=== PATIENT | female | born 1935 | race Caucasian/White ===

== ENCOUNTER 2017-08-07 12:38 | Inpatient (IN) | payer MEDICARE, OTHER ==
[~2017-08-07] VITALS: Ht 160 cm; Wt 86.2 kg
--- NOTE | 2017-08-07 12:44 | NUR ---
PT IS IN ROOM #2A. DR MATSON EVALUATED THE PT.
[2017-08-07] MEDS ORDERED: METH500T PO (13:11)
[2017-08-07] MEDS ORDERED: TRAM50TA2 PO (13:11)
[2017-08-07] MEDS ORDERED: LANS30CA56 PO (13:11)
[2017-08-07] MEDS ORDERED: DOCU-141 PO (13:11)
[2017-08-07] MEDS ORDERED: DULO20CA PO (13:11)
[2017-08-07] MEDS ORDERED: LIDO30AD10 TD (13:11)
[2017-08-07] MEDS ORDERED: SENN-167 PO (13:11)
[2017-08-07] MEDS ORDERED: ALPR0.5T8 PO (13:11)
[2017-08-07] MEDS ORDERED: APIX2.5T PO (13:11)
[2017-08-07] MEDS ORDERED: GABA-532 PO (13:11)
[2017-08-07] MEDS ORDERED: BISA-79 PO (13:11)
[2017-08-07] MEDS ORDERED: LEVO50TA8 PO (13:11)
[2017-08-07] MEDS ORDERED: POTA10TA15 PO (13:11)
[2017-08-07] MEDS ORDERED: DEXA4TAB2 PO (13:11)
[2017-08-07] MEDS ORDERED: FURO-152 PO (13:11)
[2017-08-07] MEDS ORDERED: DIPH25CA83 PO (13:11)
[2017-08-07] MEDS ORDERED: METO-302 PO (13:11)
[2017-08-07] MEDS ORDERED: IV NORMAL SALINE 1000 ML BAG IV ONE (13:30)
[2017-08-07 14:25] LABS: BASOPHILS # (AUTO) 0.1 K/uL (0.0-8.0); BASOPHILS % (AUTO) 0.5 % (0.0-2.0); EOSINOPHILS % (AUTO) 0.2 % (0.0-7.0); HEMATOCRIT 43.7 % (37-47); HEMOGLOBIN 14.8 G/DL (12.0-16.0); LYMPHOCYTES # (AUTO) 0.6 K/UL (0.8-4.8); LYMPHOCYTES % (AUTO) 3.8 % (20.5-51.5); MEAN CORPUSCULAR HEMOGLOBIN 30.3 UUG (27.0-31.0); MEAN CORPUSCULAR HGB CONC 34 g/dL (32.0-37.0); MEAN CORPUSCULAR VOLUME 89.5 FL (81.0-99.0); MONOCYTES # (AUTO) 1.6 K/UL (0.1-1.30); NEUTROPHILS # (AUTO) 13.9 K/UL (1.8-8.9); NEUTROPHILS % (AUTO) 85.5 % (38.5-71.5); PLATELET COUNT (AUTO) 146 K/UL (150-450); RED BLOOD CELL COUNT(AUTO) 4.88 MIL/UL (4.2-5.4); WHITE BLOOD COUNT (AUTO) 16.2 K/UL (4.0-11.2)
[2017-08-07 14:48] LABS: ALANINE AMINOTRANSFERASE 30 U/L (14-59); ALKALINE PHOSPHATASE 43 U/L (50-136); ASPARTATE AMINOTRANSFERASE 14 U/L (15-37); BILIRUBIN,DIRECT 0.2 mg/dL (0.0-0.2); CARBON DIOXIDE 25 mmol/L (21-32); CREATININE 0.7 mg/dL (0.6-1.3); GLUCOSE 94 mg/dL (74-106); TOTAL PROTEIN, SERUM 5.4 g/dL (6.4-8.2); UREA NITROGEN, BLOOD 20 mg/dL (7-18)
[2017-08-07 14:51] LABS: CHLORIDE 103 mmol/L (98-107)
[2017-08-07 14:58] LABS: POTASSIUM 2.7 mmol/L (3.5-5.1)
[2017-08-07] MEDS ORDERED: POT CHLORIDE/POT BICARB/CIT AC 25 MEQ TABLET.EFF PO ONE (15:15)
[2017-08-07] MEDS ORDERED: POTASSIUM CHLORIDE 50 ML IV SCH (15:15)
[2017-08-07] MEDS ORDERED: ERYTHROMYCIN 0.5% OPHT OINT 3.5 GM TUBE OP ONE (15:30)
[2017-08-07] MEDS ORDERED: ERYTHROMYCIN 0.5% OPHT OINT 3.5 GM TUBE ONE (16:14)
[2017-08-07] MEDS ORDERED: POTASSIUM CHLORIDE 50 ML ONE (16:15)
[2017-08-07] MEDS ORDERED: POTASSIUM BICARBONATE/CIT AC 25 MEQ TABLET.EFF ONE (16:15)
[2017-08-07 16:49] LABS: BAND % (MANUAL) 5 % (0-10); EOSINOPHILS % (MANUAL) 1 % (0-8); LYMPHOCYTES % (MANUAL) 6 % (20-40); METAMYELOCYTES % 1 % (0-1); MONOCYTES % (MANUAL) 7 % (2-10); MYELOCYTES % 3 % (0-0); NEUTROPHILS % (MANUAL) 77 % (42-75)
--- NOTE | 2017-08-07 17:54 | NUR ---
REPORT WAS GIVEN TO PRODUCT DELIVERY SPECIALIST. PT WAS TRANSFERED TO TELEMETRY ROOM #210.
--- NOTE | 2017-08-07 18:30 | NUR ---
PT ARRIVED BY [facility] TO 210, NO DISTRESS, NO C/O PAIN, VVS, WILL GIVE REPORT TO CUT OFF MACHINE UNLOADER NURSE.
--- NOTE | 2017-08-07 18:51 | NUR ---
VSS 98.5 89, 19, 134/76 98%. RECEIVED REPORT TO RN FROM ER 60 MINUTES AGO.
[2017-08-07 18:54] VITALS: BP 130/76
[2017-08-07 20:00] VITALS: BP 133/77
[2017-08-07] MEDS ORDERED: LIDOCAINE 5% PATCH TD SCH (21:00)
[2017-08-07] MEDS ORDERED: ONDANSETRON 4 MG/2 ML VIAL IV PRN (21:00)
[2017-08-07] MEDS ORDERED: SENNOSIDES 1 TABLET PO PRN (21:00)
[2017-08-07] MEDS ORDERED: ACETAMINOPHEN 325 MG TABLET PO PRN (21:00)
[2017-08-07] MEDS ORDERED: ALPRAZOLAM 0.5 MG TABLET PO PRN (21:00)
[2017-08-07] MEDS ORDERED: METHOCARBAMOL 500 MG TABLET PO PRN (21:00)
[2017-08-07] MEDS: METOPROLOL SUCCINATE XL 25 MG TAB.SR.24H PO SCH (21:00)
[2017-08-07] MEDS ORDERED: Medication Not On Formulary EA (Apixaban (Eliquis) 2.5 MG) PO SCH (21:00)
[2017-08-07] MEDS ORDERED: DEXAMETHASONE 4 MG TABLET PO SCH (21:00)
[2017-08-07] MEDS ORDERED: BISACODYL 5 MG TABLET.DR PO PRN (21:00)
[2017-08-07] MEDS ORDERED: Medication Not On Formulary EA (Potassium Chloride 1 TAB) PO PRN (21:00)
[2017-08-07] MEDS ORDERED: TRAMADOL HCL 50 MG TABLET PO PRN (21:00)
[2017-08-07] MEDS ORDERED: POTASSIUM CHLORIDE 20 MEQ in IV NS 1000 ML 1,000 ML IV SCH (21:45)
--- NOTE | 2017-08-07 22:00 | NUR ---
came and saw family, daughter is concern that pt fall possibly due to bp drop. bp is normal with 133/[address] Butler to hold toprol tonSonoPlot.
[2017-08-07] MEDS: GABAPENTIN 100 MG CAPSULE PO SCH (22:08)
[2017-08-07] MEDS ORDERED: TRAMADOL HCL 50 MG TABLET ONE (22:18)
[2017-08-07] MEDS ORDERED: GABAPENTIN 100 MG CAPSULE ONE (22:20)
[2017-08-07] MEDS ORDERED: ALPRAZOLAM 0.5 MG TABLET ONE (22:21)
[2017-08-07] MEDS ORDERED: AZITHROMYCIN 500 MG VIAL IV ONE (23:34)
[2017-08-07] MEDS ORDERED: CEFTRIAXONE 1 G VIAL ONE (23:34)
[2017-08-08 00:01] VITALS: BP 136/81
[2017-08-08] MEDS: CEFTRIAXONE 1 G in IV DEXTROSE 5% 50 ML IV SCH ×2 (00:10→21:01)
[2017-08-08] MEDS: AZITHROMYCIN IV 500 MG in IV DEXTROSE 5% 250 ML IV SCH ×2 (00:10→23:04)
[2017-08-08] MEDS: MORPHINE SULFATE 2 MG/1 ML DISP.SYRIN IV PRN ×4 (01:14→21:02)
[2017-08-08] MEDS ORDERED: MORPHINE SULFATE 2 MG/1 ML DISP.SYRIN ONE ×2 (01:26→06:52)
[2017-08-08 04:00] VITALS: BP 153/81
--- NOTE | 2017-08-08 06:30 | NUR ---
PT IS NEW ADMIT,pt alert,oriented, c/o back pain and both leg pain. left leg weakness. pt had syncopal episode at home and a fall.kept on oxygen 1-2 liters overnight, medicated with ultram but no enough relief woke up in pain and given morphine with better relief and fall asleep.started on iv fluids and antibiotics given without reaction.had x1 liquid stool but stop this morning voided in bedpan and urine sent to lab.med Eliquis given, family brought meds from home, Dr.Oleg pineda to give meds tonight confirmed by Delisa ,charge nurse.will continue to monitor to monitor, A-fib on monitor.
[2017-08-08] MEDS: GABAPENTIN 100 MG CAPSULE PO SCH ×3 (06:41→21:06)
[2017-08-08] MEDS ORDERED: GABAPENTIN 100 MG CAPSULE ONE (06:55)
[2017-08-08 06:57] LABS: BASOPHILS % (AUTO) 0.2 % (0.0-2.0); EOSINOPHILS # (AUTO) 0.1 K/uL (0.0-0.7); EOSINOPHILS % (AUTO) 1.1 % (0.0-7.0); HEMATOCRIT 39.6 % (31.2-41.9); HEMOGLOBIN 13.8 g/dL (10.9-14.3); LYMPHOCYTES # (AUTO) 0.4 K/uL (20.0-40.0); LYMPHOCYTES % (AUTO) 4.6 % (20.5-51.5); MEAN CORPUSCULAR HEMOGLOBIN 31.3 uug (24.7-32.8); MEAN CORPUSCULAR HGB CONC 35 g/dL (32.3-35.6); MEAN CORPUSCULAR VOLUME 89.8 fL (75.5-95.3); MONOCYTES # (AUTO) 0.8 K/uL (2.0-10.0); MONOCYTES % (AUTO) 8.4 % (0.0-11.0); NEUTROPHILS # (AUTO) 8.5 K/uL (1.8-8.9); NEUTROPHILS % (AUTO) 85.7 % (38.5-71.5); PLATELET COUNT (AUTO) 114 K/uL (179-408); RED BLOOD CELL COUNT(AUTO) 4.41 MIL/uL (3.63-4.92)
[2017-08-08 07:07] LABS: IRON, SERUM 46 ug/dL (50-175)
[2017-08-08 07:15] LABS: CARBON DIOXIDE 27 mmol/L (21-32); CHLORIDE 105 mmol/L (98-107); CREATININE 0.5 mg/dL (0.6-1.3); GLUCOSE 124 mg/dL (74-106); POTASSIUM 3.7 mmol/L (3.5-5.1); UREA NITROGEN, BLOOD 13 mg/dL (7-18)
[2017-08-08 07:16] LABS: ALANINE AMINOTRANSFERASE 16 U/L (14-59); ALKALINE PHOSPHATASE 43 U/L (50-136); ASPARTATE AMINOTRANSFERASE 14 U/L (15-37); BILIRUBIN,TOTAL 0.7 mg/dL (0.2-1.0); MAGNESIUM 1.9 mg/dL (1.8-2.4); TOTAL PROTEIN, SERUM 5.2 g/dL (6.4-8.2)
[2017-08-08 07:20] LABS: WHITE BLOOD COUNT (AUTO) 9.8 K/uL (3.8-11.8)
[2017-08-08 07:27] LABS: THYROID STIMULATING HORMONE 0.618 mIU/mL (0.358-3.740)
--- NOTE | 2017-08-08 07:30 | NUR ---
PT RECEIVED IN BED SLEEPING.V/S ARE STABLE.PT IS AXOX3.FAMILY AT BED SIDE.
[2017-08-08] MEDS ORDERED: POTASSIUM CHLORIDE 10 MEQ CAPSULE.SA PO PRN (08:00)
[2017-08-08] MEDS: DULOXETINE 20 MG CAPSULE.DR PO SCH (08:02)
[2017-08-08] MEDS: LEVOTHYROXINE SODIUM 50 MCG TABLET PO SCH (08:02)
[2017-08-08] MEDS: PANTOPRAZOLE SODIUM 40 MG TABLET.DR PO SCH (08:02)
[2017-08-08 08:34] LABS: *BLOOD, URINE 1+ (NEGATIVE); *CLARITY,URINE CLOUDY (CLEAR); *COLOR,URINE YELLOW (YELLOW); *KETONES,URINE TRACE (NEGATIVE); *PROTEIN,URINE TRACE (NEGATIVE); LEUKOCYTE ESTERASE ,URINE 1+ (NEGATIVE); NITRITE, URINE NEGATIVE (NEGATIVE); PH,URINE 5.5 (5.0-8.0); UGLUCOSE NEGATIVE (NEGATIVE)
[2017-08-08] MEDS: APIXABAN 5 MG TABLET PO SCH ×2 (08:58→17:07)
[2017-08-08 10:54] LABS: *BILIRUBIN,URIN 1+ (NEGATIVE)
[2017-08-08 10:58] LABS: BACTERIA,URINE MANY /HPF (NONE SEEN); SQUAMOUS EPITHELIAL CELL,UR MANY /HPF (NONE SEEN)
[2017-08-08] MEDS: POTASSIUM PHOSPHATE MM 5 MMOL in IV DEXTROSE 5% 100 ML IV SCH ×2 (11:38→13:30)
[2017-08-08] MEDS: GENTAMICIN SULFATE OPHT DROP 5 ML BOTTLE EACHEYE SCH ×3 (11:42→23:06)
[2017-08-08 11:52] VITALS: BP 130/81
--- NOTE | 2017-08-08 12:31 | NUR ---
PT HR IS 121 MD MADE AWARE.
--- NOTE | 2017-08-08 14:41 | NUR ---
PT SEEN BY DR FONTAINE ,FAMILY IS AT BED SIDE.MORPHINE 1 MG I/V GIVEN PER MD ORDERS FOR PAIN.
[2017-08-08] MEDS: METOPROLOL SUCCINATE XL 25 MG TAB.SR.24H PO SCH (15:22)
[2017-08-08 16:01] VITALS: BP 142/72
[2017-08-08 20:00] VITALS: BP 110/77
[2017-08-08] MEDS: POTASSIUM CHLORIDE 20 MEQ in IV NS 1000 ML 1,000 ML IV PRN (21:01)
[2017-08-09] VITALS: BP 144/78
[2017-08-09 04:00] VITALS: BP 142/82
--- NOTE | 2017-08-09 05:17 | NUR ---
PT SLEPT WELL THROUGH THE NIGHT AND WAS EASILY AWOKEN, PT COMPLAINED OF HIP PAIN ONCE DURING THE NIGHT AND WAS GIVEN MORPHINE WHICH WAS EFFECTIVE. PT DENIED HAVING ANY DIFFICULTY BREATHING. PT DENIED HAVING ANY DIZZINESS.PT DID COMPLAIN OF SLIGHT NAUSEA, ZOFRAN WAS GIVEN AND WAS EFFECTIVE. ALL NEEDS MET SAFETY MEASURES ARE IN PLACE, CALL LIGHT WITHIN REACH, BED ALARM IS ON. Addendum: 08/09/17 at 0656 by DANIELA HILL RN PT'S HEART RHYTHM HAS BEEN A FIB/AFLUTTER DURING THE NIGHT, MOSTLY CONTROLLED, PT'S HEART RATE IS BETWEEN 90-110 BUT DID INCREASE HIGH 129 BUT NON SUSTAINING. PT'S HIP XR WAS ALSO RESULTED NOTIFIED DIONISIO CONTI, NO NEW ORDERS RECEIVED AT THIS TIME, ONLY TO FOLLOW UP WITH DAY SHIFT MD.
[2017-08-09] MEDS: PANTOPRAZOLE SODIUM 40 MG TABLET.DR PO SCH (06:24)
[2017-08-09] MEDS: LEVOTHYROXINE SODIUM 50 MCG TABLET PO SCH (06:24)
[2017-08-09] MEDS: GABAPENTIN 100 MG CAPSULE PO SCH ×3 (06:25→21:10)
[2017-08-09] MEDS: GENTAMICIN SULFATE OPHT DROP 5 ML BOTTLE EACHEYE SCH ×3 (06:25→18:14)
[2017-08-09 06:42] LABS: EOSINOPHILS # (AUTO) 0.1 K/uL (0.0-0.7); EOSINOPHILS % (AUTO) 1.1 % (0.0-7.0); HEMATOCRIT 38.6 % (37-47); HEMOGLOBIN 13.4 G/DL (12.0-16.0); LYMPHOCYTES # (AUTO) 0.3 K/UL (0.8-4.8); LYMPHOCYTES % (AUTO) 3.4 % (20.5-51.5); MEAN CORPUSCULAR HEMOGLOBIN 31.3 UUG (27.0-31.0); MEAN CORPUSCULAR HGB CONC 35 g/dL (32.0-37.0); MEAN CORPUSCULAR VOLUME 90.5 FL (81.0-99.0); MONOCYTES # (AUTO) 0.6 K/UL (0.1-1.30); MONOCYTES % (AUTO) 6.6 % (0.0-11.0); NEUTROPHILS # (AUTO) 8.5 K/UL (1.8-8.9); NEUTROPHILS % (AUTO) 88.9 % (38.5-71.5); PLATELET COUNT (AUTO) 118 K/UL (150-450); RED BLOOD CELL COUNT(AUTO) 4.27 MIL/UL (4.2-5.4); WHITE BLOOD COUNT (AUTO) 9.5 K/UL (4.0-11.2)
[2017-08-09 07:02] LABS: ALANINE AMINOTRANSFERASE 22 U/L (14-59); ALKALINE PHOSPHATASE 39 U/L (50-136); ASPARTATE AMINOTRANSFERASE 15 U/L (15-37); BILIRUBIN,TOTAL 0.4 mg/dL (0.2-1.0); CARBON DIOXIDE 26 mmol/L (21-32); CHLORIDE 106 mmol/L (98-107); CREATININE 0.5 mg/dL (0.6-1.3); GLUCOSE 115 mg/dL (74-106); MAGNESIUM 1.7 mg/dL (1.8-2.4); PHOSPHOROUS 1.8 mg/dL (2.5-4.9); POTASSIUM 4.3 mmol/L (3.5-5.1); TOTAL PROTEIN, SERUM 5.2 g/dL (6.4-8.2); UREA NITROGEN, BLOOD 9 mg/dL (7-18)
[2017-08-09] MEDS: MORPHINE SULFATE 2 MG/1 ML DISP.SYRIN IV PRN ×5 (07:35→21:11)
--- NOTE | 2017-08-09 07:35 | NUR ---
on bed, resting verbalized pain on left hip, medicated. aware of result of xray , will meds as needed. bedrest maintained.
--- NOTE | 2017-08-09 08:55 | NUR ---
dr martinez here, aware of left hip fracture result, will keep patient on bedrest, patient resting well after pain med with relief.
[2017-08-09] MEDS ORDERED: SODIUM PHOSPHATE MM 15 MM in IV DEXTROSE 5% 250 ML IV ONE (09:30)
[2017-08-09] MEDS ORDERED: MAGNESIUM SULFATE/D5W 100 ML IV SCH (09:30)
[2017-08-09] MEDS: APIXABAN 5 MG TABLET PO SCH (09:42)
[2017-08-09] MEDS: DULOXETINE 20 MG CAPSULE.DR PO SCH (09:42)
[2017-08-09 10:00] LABS: EOSINOPHILS % (MANUAL) 1 % (0-8); LYMPHOCYTES % (MANUAL) 7 % (20-40); MONOCYTES % (MANUAL) 12 % (2-10); NEUTROPHILS % (MANUAL) 80 % (42-75)
--- NOTE | 2017-08-09 10:00 | NUR ---
bucks traction applied as ordered, tolerated well by patient. verbalized relief of pressure from the hip.
[2017-08-09 11:25] VITALS: BP 113/80
[2017-08-09] MEDS: METOPROLOL TARTRATE 25 MG TABLET PO SCH ×2 (11:57→21:10)
--- NOTE | 2017-08-09 12:16 | NUR ---
dr martinez in to speak with patients family, updated with patient status.
--- NOTE | 2017-08-09 12:34 | NUR ---
tele dc as ordered.
[2017-08-09 16:08] VITALS: BP 114/72
--- NOTE | 2017-08-09 17:06 | NUR ---
family in at bedside, anxious with consult with dr serrano. aware of results and xray films as requested. patient on bed, resting comfortable.
--- NOTE | 2017-08-09 19:30 | NUR ---
RECEIVED PATIENT LAYING IN BED. BUCKS TRACTION ON LEFT LEG WITH 5 LBS. NO ACUTE DISTRESS NOTED. FAMILY AT BEDSIDE. SAFETY INITIATED. CALL LIGHT WITHIN REACH. WILL CONTINUE TO MONITOR.
[2017-08-09 20:00] VITALS: BP 124/79
[2017-08-09] MEDS: CEFTRIAXONE 1 G in IV DEXTROSE 5% 50 ML IV SCH (21:09)
[2017-08-09 21:10] VITALS: BP 124/79
[2017-08-09] MEDS ORDERED: ACET325T53 PO (21:53)
[2017-08-09] MEDS: AZITHROMYCIN IV 500 MG in IV DEXTROSE 5% 250 ML IV SCH (21:58)
[2017-08-09] MEDS: POTASSIUM CHLORIDE 20 MEQ in IV NS 1000 ML 1,000 ML IV PRN (23:45)
[2017-08-10] MEDS: MORPHINE SULFATE 2 MG/1 ML DISP.SYRIN IV PRN (00:09)
--- NOTE | 2017-08-10 00:35 | NUR ---
TRANSPORT TEAM HERE TO [facility] THE PATIENT. GAVE REPORT TO GERALD TATUM AT [facility]. HERNANDEZ. VITAL SIGNS STABLE.
[2017-08-10] MEDS: GENTAMICIN SULFATE OPHT DROP 5 ML BOTTLE EACHEYE SCH (00:53)
== END 2017-08-10 01:45 | disposition short-term general hospital (02) | DRG 73 ==
LOC: ER 12:38 → TELE 18:05 → MED 08-09 10:30
PROVIDERS: ADMIT Internal Medicine; ATTEND Internal Medicine
DX: G90.8 Other disorders of autonomic nervous system (principal); J18.9 Pneumonia, unspecified organism; E44.0 Moderate protein-calorie malnutrition; J90 Pleural effusion, not elsewhere classified; S72.012A Unspecified intracapsular fracture of left femur, initial encounter for closed fracture; C90.00 Multiple myeloma not having achieved remission; I31.3 Pericardial effusion (noninflammatory); I48.92 Unspecified atrial flutter; M84.48XA Pathological fracture, other site, initial encounter for fracture; N39.0 Urinary tract infection, site not specified; I48.2 Chronic atrial fibrillation; I11.9 Hypertensive heart disease without heart failure; R55 Syncope and collapse; E03.9 Hypothyroidism, unspecified; E66.9 Obesity, unspecified; E87.6 Hypokalemia; F41.9 Anxiety disorder, unspecified; G89.4 Chronic pain syndrome; Z79.01 Long term (current) use of anticoagulants; Z79.891 Long term (current) use of opiate analgesic; Z86.711 Personal history of pulmonary embolism; Z79.899 Other long term (current) drug therapy; M48.00 Spinal stenosis, site unspecified; M54.30 Sciatica, unspecified side; Z68.33 Body mass index [BMI] 33.0-33.9, adult; Z92.21 Personal history of antineoplastic chemotherapy; Y93.9 Activity, unspecified; Y92.009 Unspecified place in unspecified non-institutional (private) residence as the place of occurrence of the external cause; W19.XXXA Unspecified fall, initial encounter
CPT/HCPCS: 36415; 70030-TC; 70450; 71010; 72125; 73501; 83550; 83605; 83735; 84100; 84443; 85025; 85730; 87040; 87086; 93005; 93307; 93880; A4663; J0456; J0696; J2270; J2405; J3475; J3480; J3490; J7030; J7060

== ENCOUNTER 2017-08-17 13:07 | Inpatient (IN) | payer MEDICARE, OTHER ==
[~2017-08-17] VITALS: Ht 160 cm; Wt 90.7 kg
[~2017-08-17 13:07] MED LIST: ACET325T53 PO; ALPR0.5T8 PO; DOCU-141 PO; DULO20CA PO; GABA-532 PO; LANS30CA56 PO; LEVO50TA8 PO; METO-302 PO; SENN-167 PO; TRAM50TA2 PO
[2017-08-17] MEDS ORDERED: APIX2.5T PO (15:17)
[2017-08-17] MEDS ORDERED: LACT1TAB12 PO (15:17)
[2017-08-17] MEDS ORDERED: METO75TA PO (15:17)
[2017-08-17] MEDS ORDERED: LEVO50TA8 PO (15:17)
[2017-08-17] MEDS ORDERED: ATOR20TA PO (15:17)
[2017-08-17] MEDS ORDERED: DULO20CA PO (15:17)
[2017-08-17] MEDS ORDERED: GABA-532 PO (15:17)
--- NOTE | 2017-08-17 16:13 | NUR ---
pt arrived in ER with ambulance in a gurney at 1330. pt vitals taken bp 127 hr 95 on 94% rroom air. respirations 18. no signs of sob. temp 98.3. pt assessed. initial assessment and physical assessment done on bedside. pictures taken on wound site. family member refused to have wounds opened and refused when encouraged. picture of hematoma taken. will endorse to next shift to change dressing and take picture. NIH scale done. pt is negative for any stroke residual. pt has some signs of short term memory and forgetfulness. bed alarm on as family recommends for confusion. pt is alert and oriented. all information on report on chart. belongings list placed and signed on chart. med recon done. awaiting dr vicente orders. will continue to monitor.
[2017-08-17] MEDS ORDERED: ACETAMINOPHEN 325 MG TABLET PO PRN (16:45)
[2017-08-17] MEDS ORDERED: Medication Not On Formulary EA (Apixaban (Eliquis) 2.5 MG) PO SCH (17:00)
[2017-08-17] MEDS: GABAPENTIN 100 MG CAPSULE PO SCH (17:31)
[2017-08-17] MEDS: DOCUSATE SODIUM 100 MG CAPSULE PO SCH (17:31)
--- NOTE | 2017-08-17 17:57 | NUR ---
pt continues to sleep throughout the day. pt shows no signs of confusion nor signs of distress. med recon done except erythromycin cream for left stye q4 hrs. contacted md and awaiting orders. bed alarm on. instruted pt to call for help when need assistance although pt may forget. bed alarm next to patient and intructed to use. will endorse new developments to double end tenoner setter nurse.
[2017-08-17] MEDS ORDERED: ERYTHROMYCIN 0.5% OPHT OINT 3.5 GM TUBE EACHEYE SCH (19:00)
--- NOTE | 2017-08-17 20:00 | NUR ---
Received pt on bed asleep. Family member at bedside. In no apparent distress. Breathing even and unlabored with normal respirations. Complained of left hip pain, PRN tramadol given as ordered. BP meds held, BP 103/65. Call light within reach. Safety and fall precautions observed and maintained. All needs met. Will continue to monitor.
[2017-08-17] MEDS: ATORVASTATIN 20 MG TABLET PO SCH (20:15)
[2017-08-17] MEDS: ERYTHROMYCIN LEFTEYE SCH (20:15)
[2017-08-17] MEDS: APIXABAN 2.5 MG PO SCH (20:15)
[2017-08-17] MEDS: TRAMADOL HCL 50 MG TABLET PO PRN (20:17)
[2017-08-17] MEDS: METOPROLOL SUCCINATE XL 25 MG TAB.SR.24H PO SCH (20:18)
[2017-08-17 21:10] VITALS: BP 103/65
[2017-08-18] MEDS ORDERED: Z GUARD REMEDY PASTE 57 GM TUBE TOP PRN (01:45)
[2017-08-18] MEDS: TRAMADOL HCL 50 MG TABLET PO PRN ×2 (05:32→12:47)
--- NOTE | 2017-08-18 05:50 | NUR ---
Patient slept well throughout the shift. No acute distress noted. Cleanse surgical site with NS, pat dry, surgical dressing applied as ordered. Pictures taken and placed in chart. No signs/symptoms of infection was noted. Still complaining of left hip pain, medicated with PRN tramadol as ordered. Incontinent care done. DVT pumps on. Call light within reach. fall precautions observed and maintained. All needs attended.
[2017-08-18] MEDS: ERYTHROMYCIN LEFTEYE SCH ×4 (06:39→19:33)
[2017-08-18] MEDS: LEVOTHYROXINE SODIUM 50 MCG TABLET PO SCH (06:39)
[2017-08-18 07:10] VITALS: BP 149/97
[2017-08-18 07:26] LABS: BASOPHILS % (AUTO) 0.2 % (0.0-2.0); EOSINOPHILS # (AUTO) 0.1 K/uL (0.0-0.7); EOSINOPHILS % (AUTO) 0.7 % (0.0-7.0); HEMATOCRIT 37.9 % (37-47); HEMOGLOBIN 13.1 G/DL (12.0-16.0); LYMPHOCYTES # (AUTO) 1.5 K/UL (0.8-4.8); LYMPHOCYTES % (AUTO) 18.4 % (20.5-51.5); MEAN CORPUSCULAR HEMOGLOBIN 31.4 UUG (27.0-31.0); MEAN CORPUSCULAR HGB CONC 35 g/dL (32.0-37.0); MEAN CORPUSCULAR VOLUME 90.7 FL (81.0-99.0); MONOCYTES # (AUTO) 0.5 K/UL (0.1-1.30); MONOCYTES % (AUTO) 6.1 % (0.0-11.0); NEUTROPHILS % (AUTO) 74.6 % (38.5-71.5); PLATELET COUNT (AUTO) 193 K/UL (150-450); RED BLOOD CELL COUNT(AUTO) 4.18 MIL/UL (4.2-5.4); WHITE BLOOD COUNT (AUTO) 8.1 K/UL (4.0-11.2)
--- NOTE | 2017-08-18 07:30 | NUR ---
Received patient asleep. Non-labored breathing. Bot in apparent distress. Call light within reach.
[2017-08-18 07:39] LABS: ALANINE AMINOTRANSFERASE 23 U/L (14-59); ALKALINE PHOSPHATASE 55 U/L (50-136); ASPARTATE AMINOTRANSFERASE 17 U/L (15-37); BILIRUBIN,TOTAL 0.8 mg/dL (0.2-1.0); CARBON DIOXIDE 26 mmol/L (21-32); CHLORIDE 105 mmol/L (98-107); CREATININE 0.5 mg/dL (0.6-1.3); GLUCOSE 108 mg/dL (74-106); MAGNESIUM 1.5 mg/dL (1.8-2.4); PHOSPHOROUS 2.9 mg/dL (2.5-4.9); TOTAL PROTEIN, SERUM 5.4 g/dL (6.4-8.2); UREA NITROGEN, BLOOD 6 mg/dL (7-18)
[2017-08-18] MEDS: APIXABAN 2.5 MG PO SCH ×2 (08:56→20:53)
[2017-08-18] MEDS: DULOXETINE 20 MG CAPSULE.DR PO SCH (08:57)
[2017-08-18] MEDS: GABAPENTIN 100 MG CAPSULE PO SCH ×3 (08:57→17:00)
[2017-08-18] MEDS: ACIDOPHILUS/BULGARICUS CHEW TAB PO SCH (08:57)
[2017-08-18] MEDS: OXYCODONE/APAP 5-325 MG TABLET PO PRN ×2 (08:58→20:55)
[2017-08-18] MEDS ORDERED: LEVOTHYROXINE SODIUM 50 MCG TABLET PO SCH (09:00)
[2017-08-18] MEDS: DOCUSATE SODIUM 100 MG CAPSULE PO SCH ×2 (09:00→17:00)
[2017-08-18] MEDS ORDERED: Medication Not On Formulary EA (Lactobacillus Acidophilus (Acidophilus) 1 EACH) PO SCH (09:00)
--- NOTE | 2017-08-18 09:30 | NUR ---
Complained of pain over left leg rated as 9/10. Refused to participate with therapy at the moment because of pain. PRN Percocet given.
--- NOTE | 2017-08-18 09:50 | NUR ---
Changed per soiling, tone-care done. Offered crackers and yoghurt.
--- NOTE | 2017-08-18 11:28 | NUR ---
Up with physical therapy. Able to ambulate. Tolerating therapy well.
--- NOTE | 2017-08-18 12:49 | NUR ---
Still with left leg pain rated as 9/10 after therapy. Tramadol PRN given
[2017-08-18] MEDS ORDERED: MAGNESIUM OXIDE 400 MG TABLET PO ONE (15:00)
[2017-08-18] MEDS: DEXAMETHASONE 4 MG PO SCH (17:00)
--- NOTE | 2017-08-18 18:00 | NUR ---
Dressing changed. With scant serous drainage. With swelling. Informed Dr. Butler and Dr. Allen. No new orders. Ice pack applied over area
[2017-08-18 20:30] VITALS: BP 103/70
[2017-08-18] MEDS: ATORVASTATIN 20 MG TABLET PO SCH (20:53)
[2017-08-18] MEDS: METOPROLOL SUCCINATE XL 25 MG TAB.SR.24H PO SCH (20:56)
[2017-08-18] MEDS: ALPRAZOLAM 0.5 MG TABLET PO PRN (20:57)
--- NOTE | 2017-08-18 22:09 | NUR ---
Received patient laying on bed, , unlabored breathing and no signs of distress. pt wound site still has hematoma but improving. dressing changed by am shift nurse. removed ice packs and repositioned patient. dvt pumps on. swelling reduced. pt took meds as prescribed. witheld metoprolol for decreased blood pressure. pt also has fluctuating hr due to a fib. md aware. pain meds given with adult rate of 9/10 on left leg. pt states that she was hot. pt afebrile. turned off the specialty matress. pt also given xanax as requested by the family. will continue to monitor.
--- NOTE | 2017-08-19 02:30 | NUR ---
Seen and examined by Dr. Morin (Float Tender) with new orders to change current Eliquis order to Eliquis 5mg tablet orally every 12 hours and Metoprolol order to Metoprolol 25 mg 1 tablet orally every 12 hours. at bedside and patient informed of the medication orders and agreed. Noted an carried out. Addendum: 08/19/17 at 1501 by MADAY AUGUSTIN RN 1430: Seen and examined by Dr. Morin (Float Tender) with new orders to change current Eliquis order to Eliquis 5mg tablet orally every 12 hours and Metoprolol order to Metoprolol 25 mg 1 tablet orally every 12 hours. at bedside and patient informed of the medication orders and agreed. Noted an carried out.
--- NOTE | 2017-08-19 06:11 | NUR ---
Patient was able to sleep the entire night. Denies of pain. Vitals are stable. Surgical site checked and assessed, drainage noted but no signs of infections. All due meds given. All needs attended to. Call light within reach. fall precautions observed and maintained.
[2017-08-19] MEDS: LEVOTHYROXINE SODIUM 50 MCG TABLET PO SCH (06:24)
[2017-08-19] MEDS: PANTOPRAZOLE SODIUM 40 MG TABLET.DR PO SCH (06:25)
--- NOTE | 2017-08-19 07:10 | NUR ---
Received patient asleep lying on bed on a semi-henderson's position with no SOB, distress or discomforts at this time, easily aroused, alert and oriented, responsive to both verbal and tactile stimuli. All needs attended and anticipated. Call light placed within reach. Will continue to monitor.
[2017-08-19] MEDS: ERYTHROMYCIN LEFTEYE SCH ×4 (08:18→19:07)
[2017-08-19 08:40] VITALS: BP 125/67
[2017-08-19] MEDS: APIXABAN 2.5 MG PO SCH (08:44)
[2017-08-19] MEDS: GABAPENTIN 100 MG CAPSULE PO SCH ×3 (08:44→17:21)
[2017-08-19] MEDS: ACIDOPHILUS/BULGARICUS CHEW TAB PO SCH (08:44)
[2017-08-19] MEDS: DULOXETINE 20 MG CAPSULE.DR PO SCH (08:44)
[2017-08-19] MEDS: DOCUSATE SODIUM 100 MG CAPSULE PO SCH ×2 (08:46→17:00)
--- NOTE | 2017-08-19 10:45 | NUR ---
Received a call from Dr. 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 patient is currently on Eliquis 2.5mg PO BID. Immediately called Dr. Luis Hammond (on-call) and reported the result that was reported by Dr. Kumar. Per Dr. Luis Hammond to continue with current medication. Called Brenda (daughter) and informed. Also, informed patient's daughter regarding the upcoming IDT meeting for tomorrow. Per Brenda she will go. Called Nursing telephone operators supervisor and informed about the left femoral vein clot. Will continue to monitor patient closely.
--- NOTE | 2017-08-19 11:00 | NUR ---
Called Dr. Luis Hammond and verified if patient can resume her normal daily activities. Per MD Hammond it is okay to resume normal daily activities.
--- NOTE | 2017-08-19 11:35 | NUR ---
Wound care dressing done, no drainage noted. Patient tolerated well the dressing change.
--- NOTE | 2017-08-19 12:30 | NUR ---
Patient's daughter, Brenda said she wants a Cardiology Consult for the patient. called dr. Luis Hammond and informed of the request. Received new order from MD Hammond of Cardiology Consult with Dr. Arnoldo Valle, (Superintendent Local). Noted and carried out.
--- NOTE | 2017-08-19 12:34 | NUR ---
Called and spoke with Dr. Arnoldo Valle (Regional Service Manager) and notified of the Cardiology Consult order.
--- NOTE | 2017-08-19 13:17 | NUR ---
Upon doing rounds, noted patient asleep, lying on bed on a semi- henderson's position with visitor at the bedside. patient easily aroused with no SOB, distress or discomforts. patient denies any pain or discomforts at this time. All needs attended and anticipated. call light placed within reach. Encouraged patient to use call light whenever assistance is needed.
--- NOTE | 2017-08-19 15:27 | NUR ---
seen and examined by Dr. Luis Hammond with no new orders.
--- NOTE | 2017-08-19 15:53 | NUR ---
Assessed patient's orthostatic blood pressure with results as follows as ordered by MD: supine: BP: 124/61; HR: 82 sittin/ 86; HR: 89 then another set of BP and HR while sitting sittin/64; HR: 60-100 Dr. Hammond at bedside with new order to administer NS at 80mL/hr times 1 liter. patient and informed. Noted and carried out.
[2017-08-19] MEDS ORDERED: IV NS 1000 ML 1,000 ML IV ONE (16:00)
[2017-08-19] MEDS: CLIDINIUM BR/CHLORDIAZEPOXIDE CAPSULE PO SCH ×2 (16:41→21:02)
--- NOTE | 2017-08-19 18:47 | NUR ---
Patient noted asleep, lying on bed on a semi- henderson's position, no SOB, distress or discomforts noted. Easily aroused with call light within reach with at the bedside. NS at 80 mL/hr flowing good on patient's right wrist peripheral line. IV site noted patent and intact. No redness or swelling around site. All needs attended and anticipated. Will continue to monitor.
[2017-08-19 19:00] VITALS: BP 121/69
--- NOTE | 2017-08-19 19:30 | NUR ---
RECEIVED PATIENT FROM DAY SHIFT NURSE. SHIFT REPORT AT BEDSIDE. PATIENT SLEEPING COMFORTABLY AT START OF SHIFT WITH NO SIGNS OF PAIN, SOB, OR ACUTE DISTRESS. PT A/O & ABLE TO MAKE NEEDS KNOWN. PERTINENT ASSESSMENTS DONE. VITAL SIGNS STABLE AT START OF SHIFT. CALL LIGHT PLACED WITHIN REACH OF PATIENT. WILL CONTINUE TO MONITOR PATIENT THROUGH OUT SHIFT.
[2017-08-19] MEDS: ATORVASTATIN 20 MG TABLET PO SCH (20:58)
[2017-08-19] MEDS: APIXABAN 5 MG TABLET PO SCH (20:58)
[2017-08-19] MEDS: METOPROLOL TARTRATE 25 MG TABLET PO SCH (20:59)
[2017-08-20] MEDS: LEVOTHYROXINE SODIUM 50 MCG TABLET PO SCH (06:31)
[2017-08-20] MEDS: CLIDINIUM BR/CHLORDIAZEPOXIDE CAPSULE PO SCH ×3 (06:31→21:12)
[2017-08-20] MEDS: PANTOPRAZOLE SODIUM 40 MG TABLET.DR PO SCH (06:31)
[2017-08-20] MEDS: ERYTHROMYCIN LEFTEYE SCH ×4 (06:36→19:28)
--- NOTE | 2017-08-20 06:46 | NUR ---
PT SLEPT WELL ALL THROUGH OUT SHIFT WITH NO SIGNS OF PAIN, SOB, OR ACUTE DISTRESS. ALL NEEDS ATTENDED TO. MEDICATIONS ADMINISTERED ORDERED. CALL LIGHT PLACED WITHIN REACH OF PT. SHIFT REPORT TO BE GIVEN TO ONCOMING NURSE.
--- NOTE | 2017-08-20 07:16 | NUR ---
Received patient asleep, lying on bed with head of bed elevated above 30 degree angle, call light within reach. Easily aroused, responsive to both verbal and tactile stimuli. All needs attended and anticipated. Will continue to monitor patient closely.
[2017-08-20 08:44] VITALS: BP 110/72
[2017-08-20] MEDS: GABAPENTIN 100 MG CAPSULE PO SCH ×3 (08:59→17:33)
[2017-08-20] MEDS: DOCUSATE SODIUM 100 MG CAPSULE PO SCH ×2 (09:00→17:00)
[2017-08-20] MEDS: ACIDOPHILUS/BULGARICUS CHEW TAB PO SCH (09:00)
[2017-08-20] MEDS: DULOXETINE 20 MG CAPSULE.DR PO SCH (09:00)
[2017-08-20] MEDS: METOPROLOL TARTRATE 25 MG TABLET PO SCH ×2 (09:00→20:33)
[2017-08-20] MEDS: APIXABAN 5 MG TABLET PO SCH ×2 (09:02→20:30)
--- NOTE | 2017-08-20 11:26 | NUR ---
Patient noted awake, alert and oriented working with Speech Therapist in her room with no SOB, distress or discomforts noted at this time. All needs were attended and anticipated. call light within reach. Encouraged patient to use call light whenever assistance is needed. Will continue to monitor.
--- NOTE | 2017-08-20 13:16 | NUR ---
INTERDISCIPLINARY REHAB SUMMARY
--- NOTE | 2017-08-20 13:30 | NUR ---
Received a report from rehab that they took patient's orthostatic blood pressure with results as follows: supine: 114/69 sittin/41 (patient became asymptomatic: dizzy and light headed) supine: 137/74 Assessed patient noted lying on bed on a semi- henderson's position no SOB, distress or discomforts. denies any dizziness or light headedness at this time. All needs were attended and anticipated. call light placed within reach. paged Dr. Luis Hammond to report the blood pressure. Awaiting for call back.
[2017-08-20] MEDS: ALPRAZOLAM 0.5 MG TABLET PO PRN (13:31)
--- NOTE | 2017-08-20 13:48 | NUR ---
Received a call back from Dr. Luis Hammond, reported patient's blood pressure results with new order to administer NS 500 mL bolus to the patient. orders noted and carried out. patient made aware and agreed. Family at bedside informed and agreed as well.
[2017-08-20] MEDS ORDERED: IV NORMAL SALINE 500 ML BAG IV ONE (14:00)
[2017-08-20] MEDS ORDERED: IV NORMAL SALINE 500 ML IV ONE (14:00)
--- NOTE | 2017-08-20 15:40 | NUR ---
Patient continued to rest on bed with no SOB, distress or discomforts. call light within reach. Family attended the IDT meeting.
--- NOTE | 2017-08-20 16:54 | NUR ---
Seen and examined by Dr. Luis Hammond with family at bedside. Patient remained to have no SOB, distress or discomforts. Received new order from MD Hammond that patient needs to check Cortisol level in AM at 6am. Noted and carried out. MD Hammond explained the benefits of the laboratory order and agreed.
--- NOTE | 2017-08-20 19:00 | NUR ---
Patient asleep, lying on bed on a semi- henderson's position with no SOB, moaning or distress noted, easily aroused with call light within reach. All needs attended and anticipated. Will continue to monitor. Endorsed to incoming shift.
--- NOTE | 2017-08-20 19:30 | NUR ---
RECEIVED PT FROM DAY SHIFT NURSE. SHIFT REPORT AT BEDSIDE. PT FOUND COMFORTABLY SLEEPING ON BED. A/O WITH NO SIGNS OF PAIN, SOB, OR ACUTE DISTRESS. PERTINENT ASSESSMENTS DONE. SAFETY MEASURES IMPLEMENTED. CALL LIGHT PLACED WITHIN REACH OF PT. WILL CONTINUE TO MONITOR PT THROUGH OUT SHIFT.
[2017-08-20] MEDS: ATORVASTATIN 20 MG TABLET PO SCH (20:30)
--- NOTE | 2017-08-20 20:30 | NUR ---
PT BP NOTED TO BE LOW 92/55 AT START OF SHIFT. MD SADI CASTRO IMMEDIATELY NOTIFIED. ORDERED STAT CORTISOL DRAW AND TO CANCEL THE AM CORTISOL DRAW. ALSO ORDERED SOLU-CORTEF 100MG IV TID, AND TO ADMINISTER FIRST DOSE AFTER CORTISOL DRAW. WILL CARRY OUT ORDER.
[2017-08-20] MEDS: OXYCODONE/APAP 5-325 MG TABLET PO PRN (20:31)
--- NOTE | 2017-08-20 20:45 | NUR ---
LAB CALLED EXPLAINING THAT THEY CANNOT DO A STAT ORDER FOR CORTISOL DRAW TONIGHT. THEY SAID THEY HAVE TO DRAW IN THE AM AND SEND IT OUT. MD CASTRO IMMEDIATELY INFORMED. ORDERED TO HAVE THEM DRAW IT ANYWAY & TO STILL ADMINISTER THE FIRST DOSE OF SOLU-CORTEF 100MG IV. WILL CARRY OUT ORDER AND CONTINUE TO MONITOR PT THROUGH OUT SHIFT.
[2017-08-20] MEDS ORDERED: HYDROCORTISONE SOD SUCCINATE 100 MG/2 ML VIAL IV ONE (21:46)
[2017-08-20 21:49] VITALS: BP 92/55
[2017-08-20] MEDS ORDERED: HYDROCORTISONE SOD SUCCINATE 100 MG/2 ML VIAL IV SCH (22:00)
[2017-08-21] MEDS: ERYTHROMYCIN LEFTEYE SCH ×4 (06:12→18:41)
[2017-08-21] MEDS: CLIDINIUM BR/CHLORDIAZEPOXIDE CAPSULE PO SCH ×3 (06:13→21:17)
[2017-08-21] MEDS: LEVOTHYROXINE SODIUM 50 MCG TABLET PO SCH (06:13)
[2017-08-21] MEDS: PANTOPRAZOLE SODIUM 40 MG TABLET.DR PO SCH (06:13)
[2017-08-21] MEDS: OXYCODONE/APAP 5-325 MG TABLET PO PRN (06:13)
--- NOTE | 2017-08-21 06:45 | NUR ---
PT SLEPT COMFORTABLY THROUGH SHIFT WITH NO SIGNS OF ACUTE DISTRESS OR SOB. COMPLAINTS OF LEFT HIP PAIN LAST NIGHT. PAIN MED ADMINISTERED ORDERED. ALL NEEDS ATTENDED TO. SAFETY MEASURES IMPLEMENTED. ALL MEDICATIONS ADMINISTERED ORDERED. CALL LIGHT WITHIN REACH OF PT. WILL ENDORSE TO MORNING SHIFT RN.
--- NOTE | 2017-08-21 07:15 | NUR ---
Received patient in bed, awake, alert, verbally responsive, not in any form of acute distress. She denies any pain or discomfort at this time. IV heplock on right wrist. Call light placed within reach. Reminded patient to use call light for assistance with verbalized understanding.
[2017-08-21 08:45] VITALS: BP 139/81
[2017-08-21] MEDS: METOPROLOL TARTRATE 25 MG TABLET PO SCH ×2 (09:16→21:17)
[2017-08-21] MEDS: GABAPENTIN 100 MG CAPSULE PO SCH ×3 (09:16→16:53)
[2017-08-21] MEDS: ACIDOPHILUS/BULGARICUS CHEW TAB PO SCH (09:16)
[2017-08-21] MEDS: DULOXETINE 20 MG CAPSULE.DR PO SCH (09:16)
[2017-08-21] MEDS: DOCUSATE SODIUM 100 MG CAPSULE PO SCH ×2 (09:16→16:53)
[2017-08-21] MEDS: APIXABAN 5 MG TABLET PO SCH ×2 (09:21→21:19)
--- NOTE | 2017-08-21 12:30 | NUR ---
Patient seen by Dr. Luis Hammond with order to do Orthostatic BP daily. Patient and daughter Doris at bedside aware.
[2017-08-21] MEDS: TRAMADOL HCL 50 MG TABLET PO PRN ×2 (13:50→22:35)
[2017-08-21] MEDS: HYDROCORTISONE SOD SUCCINATE 100 MG/2 ML VIAL IV SCH ×2 (14:00→21:17)
[2017-08-21 20:00] VITALS: BP 115/71
--- NOTE | 2017-08-21 20:00 | NUR ---
Received pt on bed alert and awake. Able to make needs known. No apparent distress. Complained of left hip pain, medicated with PRN tramadol as ordered. Breathing even and unlabored with normal respirations. Vital signs stable. Kept clean, dry and comfortable. Call light within reach. All needs attended. Will continue to monitor
[2017-08-21] MEDS: ATORVASTATIN 20 MG TABLET PO SCH (21:16)
--- NOTE | 2017-08-22 07:25 | NUR ---
Received report from night club manager nurse. Patient is awake, verbally responsive, not in any form of acute distress. No complain of pain at this time. Call light placed within reach. Assisted to her needs.
[2017-08-22] MEDS: DULOXETINE 20 MG CAPSULE.DR PO SCH (09:05)
[2017-08-22] MEDS: ACIDOPHILUS/BULGARICUS CHEW TAB PO SCH (09:05)
[2017-08-22] MEDS: GABAPENTIN 100 MG CAPSULE PO SCH ×3 (09:05→17:42)
[2017-08-22] MEDS: DOCUSATE SODIUM 100 MG CAPSULE PO SCH ×2 (09:05→17:42)
[2017-08-22] MEDS: METOPROLOL TARTRATE 25 MG TABLET PO SCH ×2 (09:05→22:52)
[2017-08-22 09:44] LABS: CARBON DIOXIDE 24 mmol/L (21-32); CHLORIDE 100 mmol/L (98-107); CREATININE 0.5 mg/dL (0.6-1.3); GLUCOSE 138 mg/dL (74-106); MAGNESIUM 1.4 mg/dL (1.8-2.4); PHOSPHOROUS 2.9 mg/dL (2.5-4.9); POTASSIUM 3.5 mmol/L (3.5-5.1); UREA NITROGEN, BLOOD 11 mg/dL (7-18)
--- NOTE | 2017-08-22 10:00 | NUR ---
Checked orthostatic vital signs. Supine: BP 137/87 P 93, sitting: BP 103/74 P 93, sitting 105/53, supine 150/93. Patient denies any dizziness or weakness.
[2017-08-22] MEDS: APIXABAN 5 MG TABLET PO SCH ×2 (10:31→22:52)
[2017-08-22 11:44] LABS: BASOPHILS % (AUTO) 0.1 % (0.0-2.0); HEMATOCRIT 31.3 % (37-47); HEMOGLOBIN 10.4 G/DL (12.0-16.0); LYMPHOCYTES # (AUTO) 1.2 K/UL (0.8-4.8); LYMPHOCYTES % (AUTO) 15.1 % (20.5-51.5); MEAN CORPUSCULAR HEMOGLOBIN 30.5 UUG (27.0-31.0); MEAN CORPUSCULAR HGB CONC 33 g/dL (32.0-37.0); MEAN CORPUSCULAR VOLUME 91.6 FL (81.0-99.0); MONOCYTES # (AUTO) 0.6 K/UL (0.1-1.30); MONOCYTES % (AUTO) 7.3 % (0.0-11.0); NEUTROPHILS # (AUTO) 6.1 K/UL (1.8-8.9); NEUTROPHILS % (AUTO) 77.5 % (38.5-71.5); PLATELET COUNT (AUTO) 271 K/UL (150-450); RED BLOOD CELL COUNT(AUTO) 3.41 MIL/UL (4.2-5.4); WHITE BLOOD COUNT (AUTO) 7.9 K/UL (4.0-11.2)
[2017-08-22] MEDS: HYDROCORTISONE SOD SUCCINATE 100 MG/2 ML VIAL IV SCH (14:00)
[2017-08-22] MEDS: CLIDINIUM BR/CHLORDIAZEPOXIDE CAPSULE PO SCH ×2 (14:00→22:52)
--- NOTE | 2017-08-22 20:00 | NUR ---
Received pt on bed asleep. In no apparent distress. Calm and cooperative to care. Breathing even and unlabored with normal respirations. Kept clean, dry and comfortable. Call light within reach. All needs attended. will continue to monitor.
[2017-08-22] MEDS: MIDODRINE HCL 2.5 MG TABLET PO SCH (21:00)
[2017-08-22] MEDS: MAGNESIUM SULFATE/D5W 100 ML IV SCH ×4 (21:15→23:57)
--- NOTE | 2017-08-22 22:30 | NUR ---
Pt lying in bed comfortably. No acute distress noted. Complained of left hip pain, PRN tramadol given as ordered and well tolerated. IV line reinserted by GERALD Garner on her left forearm, IV intact and patent. All due meds given as ordered and well tolerated. Vital signs stable. Call light within reach. All needs attended. will continue to monitor.
[2017-08-22] MEDS: ATORVASTATIN 20 MG TABLET PO SCH (22:52)
[2017-08-22] MEDS: TRAMADOL HCL 50 MG TABLET PO PRN (22:59)
[2017-08-22] MEDS ORDERED: MIDODRINE HCL 5 MG TABLET ONE (23:01)
[2017-08-22] MEDS ORDERED: MAGNESIUM SULFATE 1 GM/2 ML VIAL ONE (23:13)
[2017-08-23] MEDS: OXYCODONE/APAP 5-325 MG TABLET PO PRN ×3 (03:09→20:25)
--- NOTE | 2017-08-23 05:30 | NUR ---
Pt slept well. No acute distress noted. Still complained of left hip pain, medicated with percocet PRN as ordered, verbalization of relief noted. Kept clean, dry and comfortable. Call light within reach. All needs met. Will endorse new orders to day shift nurse
[2017-08-23] MEDS: CLIDINIUM BR/CHLORDIAZEPOXIDE CAPSULE PO SCH ×3 (06:03→21:03)
[2017-08-23] MEDS: LEVOTHYROXINE SODIUM 50 MCG TABLET PO SCH (06:04)
[2017-08-23] MEDS: PANTOPRAZOLE SODIUM 40 MG TABLET.DR PO SCH (06:05)
[2017-08-23 07:30] LABS: CARBON DIOXIDE 25 mmol/L (21-32); CHLORIDE 98 mmol/L (98-107); CREATININE 0.6 mg/dL (0.6-1.3); GLUCOSE 130 mg/dL (74-106); MAGNESIUM 2.2 mg/dL (1.8-2.4); PHOSPHOROUS 2.9 mg/dL (2.5-4.9); POTASSIUM 3.1 mmol/L (3.5-5.1); UREA NITROGEN, BLOOD 11 mg/dL (7-18)
--- NOTE | 2017-08-23 07:30 | NUR ---
Received patient in bed awake, verbally responsive, afebrile, not in any form of acute distress. Call light placed within reach.
[2017-08-23 07:34] LABS: BASOPHILS % (AUTO) 0.1 % (0.0-2.0); EOSINOPHILS % (AUTO) 0.1 % (0.0-7.0); HEMATOCRIT 30.6 % (31.2-41.9); HEMOGLOBIN 11.2 g/dL (10.9-14.3); LYMPHOCYTES # (AUTO) 1.3 K/uL (20.0-40.0); LYMPHOCYTES % (AUTO) 15.5 % (20.5-51.5); MEAN CORPUSCULAR HEMOGLOBIN 32.8 uug (24.7-32.8); MEAN CORPUSCULAR HGB CONC 37 g/dL (32.3-35.6); MEAN CORPUSCULAR VOLUME 89.7 fL (75.5-95.3); MONOCYTES # (AUTO) 0.8 K/uL (2.0-10.0); MONOCYTES % (AUTO) 8.9 % (0.0-11.0); NEUTROPHILS # (AUTO) 6.4 K/uL (1.8-8.9); NEUTROPHILS % (AUTO) 75.4 % (38.5-71.5); PLATELET COUNT (AUTO) 281 K/uL (179-408); RED BLOOD CELL COUNT(AUTO) 3.41 MIL/uL (3.63-4.92); WHITE BLOOD COUNT (AUTO) 8.5 K/uL (3.8-11.8)
[2017-08-23 08:00] VITALS: BP 142/100
[2017-08-23] MEDS: DOCUSATE SODIUM 100 MG CAPSULE PO SCH ×2 (08:23→17:14)
[2017-08-23] MEDS: DULOXETINE 20 MG CAPSULE.DR PO SCH (08:23)
[2017-08-23] MEDS: GABAPENTIN 100 MG CAPSULE PO SCH ×3 (08:23→17:14)
[2017-08-23] MEDS: ACIDOPHILUS/BULGARICUS CHEW TAB PO SCH (08:23)
[2017-08-23] MEDS: METOPROLOL TARTRATE 25 MG TABLET PO SCH ×2 (08:29→20:55)
[2017-08-23] MEDS: APIXABAN 5 MG TABLET PO SCH ×2 (08:29→20:55)
[2017-08-23] MEDS: TRAMADOL HCL 50 MG TABLET PO PRN (08:37)
[2017-08-23] MEDS: MIDODRINE HCL 2.5 MG TABLET PO SCH ×2 (09:00→20:58)
[2017-08-23] MEDS: HYDROCORTISONE 10 MG TABLET PO SCH ×2 (09:24→17:15)
--- NOTE | 2017-08-23 10:30 | NUR ---
Orthostatic vital signs checked. Supine: BP 127/89 P 95, sitting: BP 101/69 P 65, supine 145/95 P 100. Patient has no complain of dizziness, no weakness and no visual changes. Patient refused to stand up because of pain.
--- NOTE | 2017-08-23 11:00 | NUR ---
Verified with Dr. Luis Hammond regarding Midodrine if OK to give with her BP of 142/100 and he stated hold the dose. He ordered to Hold Midodrine if SBP is greater than 130. Also informed him of potassium result of 3.1 and he ordered to give K-Dur 40 mEq PO one time. Patient made aware.
[2017-08-23] MEDS ORDERED: POTASSIUM CHLORIDE 20 MEQ TAB.PRT.SR PO ONE (11:30)
--- NOTE | 2017-08-23 19:30 | NUR ---
Received patient laying in bed. Alert and verbally responsive. Able to make needs known. Denies any pain and discomfort at this time. No acute distress noted. No SOB. On room air. IV site on L Forearm. Patent and intact. No redness or infiltration noted at site. Kept clean and dry. All needs attended to promptly. Call light within reach. Will continue to monitor.
[2017-08-23 20:00] VITALS: BP 125/89
[2017-08-23] MEDS: ATORVASTATIN 20 MG TABLET PO SCH (20:53)
[2017-08-24] MEDS: TRAMADOL HCL 50 MG TABLET PO PRN (00:21)
[2017-08-24] MEDS: OXYCODONE/APAP 5-325 MG TABLET PO PRN ×3 (03:50→22:56)
--- NOTE | 2017-08-24 04:26 | NUR ---
Patient awake and verbally responsive. Complaining of excruciating pain that starts in her lower back that radiates down to her legs and pass her perianal area. Patient was given Oxycodone 5/325mg, but seems to still be in a lot of pain. Daughter is at bedside at this time and verbalizes that patient is complaining of pain that she's had prior to receiving an epidural on the or 29 of July. Daughter also verbalized that she's received Morphine, Dilaudid and a Lidocaine patch in the past. Verbalized to the daughter that I would call the automotive service consultant MD to get orders. Called [facility] and Dr. Elias is automotive service consultant. Awaiting call back. Patient is in stable condition at this time. No acute distress. All needs attended to promptly. Call light within reach. will continue to monitor.
--- NOTE | 2017-08-24 04:46 | NUR ---
Received call back from Dr. Sifuentes. Explained patients hx and current status. Made aware that Per patients daughter she had received Dilaudid, Morphine and Lidocaine in the past. MD ordered Morphine 2mg IVP q4h PRN and Lidocaine 5% patch. New orders noted and carried out. Daughter and patient made aware of new orders.
[2017-08-24] MEDS: MORPHINE SULFATE 2 MG/1 ML DISP.SYRIN IVP PRN (05:01)
[2017-08-24] MEDS: LIDOCAINE 5% PATCH TD SCH ×2 (05:01→09:00)
--- NOTE | 2017-08-24 05:01 | NUR ---
Morphine 2mg IVP administered and Lidocaine 5% patch applied to lower back. Daughter still at bedside. V/S are stable with BP of 214/77 and pulse of 60. Patient alert and verbally responsive. Able to make needs known. Will continue to monitor patients pain level.
[2017-08-24] MEDS ORDERED: MORPHINE SULFATE 2 MG/1 ML DISP.SYRIN ONE (05:13)
[2017-08-24] MEDS ORDERED: LIDOCAINE 5% PATCH TD ONE (05:14)
--- NOTE | 2017-08-24 05:30 | NUR ---
Patient still complaining of a lot of pain in her back that radiates down her legs and also of cramps in legs. Daughter at bedside. Comfort measures provided. Called Dr. Sifuentes and left a message. Awaiting call back. All needs attended to promptly. Call light within reach. Will continue to monitor. Addendum: 08/24/17 at 0620 by JOE ARMENDARIZ RN Patient sleeping comfortably at this time. Will continue to monitor.
[2017-08-24] MEDS: LEVOTHYROXINE SODIUM 50 MCG TABLET PO SCH (06:50)
[2017-08-24] MEDS: PANTOPRAZOLE SODIUM 40 MG TABLET.DR PO SCH (06:50)
[2017-08-24] MEDS: CLIDINIUM BR/CHLORDIAZEPOXIDE CAPSULE PO SCH ×3 (06:50→21:00)
--- NOTE | 2017-08-24 06:57 | NUR ---
Patient awake at this time. Due meds given. Tolerated well. Still c/o pain in back, verbalized to patient that I had called MD regarding her pain and still awaiting call back. Will endorse to day shift.
[2017-08-24 07:20] LABS: CARBON DIOXIDE 27 mmol/L (21-32); CHLORIDE 99 mmol/L (98-107); CREATININE 0.6 mg/dL (0.6-1.3); GLUCOSE 98 mg/dL (74-106); MAGNESIUM 1.8 mg/dL (1.8-2.4); PHOSPHOROUS 2.8 mg/dL (2.5-4.9); POTASSIUM 3.7 mmol/L (3.5-5.1); UREA NITROGEN, BLOOD 11 mg/dL (7-18)
[2017-08-24 08:00] VITALS: BP 134/88
[2017-08-24 08:14] LABS: BASOPHILS % (AUTO) 0.1 % (0.0-2.0); EOSINOPHILS % (AUTO) 0.2 % (0.0-7.0); HEMOGLOBIN 11.1 g/dL (10.9-14.3); LYMPHOCYTES # (AUTO) 1.5 K/uL (20.0-40.0); MEAN CORPUSCULAR HEMOGLOBIN 32.2 uug (24.7-32.8); MEAN CORPUSCULAR HGB CONC 36 g/dL (32.3-35.6); MEAN CORPUSCULAR VOLUME 90.3 fL (75.5-95.3); MONOCYTES # (AUTO) 0.8 K/uL (2.0-10.0); MONOCYTES % (AUTO) 10.3 % (0.0-11.0); NEUTROPHILS # (AUTO) 5.8 K/uL (1.8-8.9); NEUTROPHILS % (AUTO) 71.4 % (38.5-71.5); PLATELET COUNT (AUTO) 259 K/uL (179-408); RED BLOOD CELL COUNT(AUTO) 3.44 MIL/uL (3.63-4.92); WHITE BLOOD COUNT (AUTO) 8.1 K/uL (3.8-11.8)
[2017-08-24] MEDS: METOPROLOL TARTRATE 25 MG TABLET PO SCH ×2 (09:00→20:50)
[2017-08-24] MEDS: HYDROCORTISONE 10 MG TABLET PO SCH ×2 (09:00→17:41)
--- NOTE | 2017-08-24 09:00 | NUR ---
Patient complained of pain on left groin, administered PRN percocet as ordered. Lidocaine patch due not given because it was just applied by night nurse at 5am.
[2017-08-24] MEDS: ACIDOPHILUS/BULGARICUS CHEW TAB PO SCH (09:01)
[2017-08-24] MEDS: DOCUSATE SODIUM 100 MG CAPSULE PO SCH ×2 (09:01→17:37)
[2017-08-24] MEDS: GABAPENTIN 100 MG CAPSULE PO SCH ×3 (09:01→17:37)
[2017-08-24] MEDS: DULOXETINE 20 MG CAPSULE.DR PO SCH (09:02)
[2017-08-24] MEDS: APIXABAN 5 MG TABLET PO SCH ×2 (09:03→21:00)
--- NOTE | 2017-08-24 09:30 | NUR ---
Checked Orthostatic BP. Supine: 131/94. Seated: 96/65. Supine 154/91. Patient has no complain of dizziness. Patient refused to stand up because of LLE pain.
[2017-08-24] MEDS: MIDODRINE HCL 2.5 MG TABLET PO SCH ×2 (10:21→20:53)
--- NOTE | 2017-08-24 14:45 | NUR ---
Dr. Luis Hammond came to see patient, notified him of patient having no appetite to eat. He ordered Marinol 2.5mg PO BID PRN. Daughter and at bedside aware.
--- NOTE | 2017-08-24 20:00 | NUR ---
received pt on bed alert, awake and oriented. Able to make needs known. No acute distress noted. No complaints of pain or discomfort. Breathing even and unlabored with normal respirations. Kept clean, dry and comfortable. Call light within reach. All needs attended. will continue to monitor.
[2017-08-24 20:26] VITALS: BP 106/68
[2017-08-24] MEDS: ATORVASTATIN 20 MG TABLET PO SCH (20:49)
[2017-08-25] MEDS: MORPHINE SULFATE 2 MG/1 ML DISP.SYRIN IVP PRN ×4 (01:28→22:50)
--- NOTE | 2017-08-25 05:59 | NUR ---
Pt slept well throughout the night. Complained of leg pain, medicated with morphine PRN. Vital signs stable. No s/s of distress was noted. Frequently checked for safety. Kept clean, dry and comfortable. Call light within reach. All needs attended.
[2017-08-25] MEDS: CLIDINIUM BR/CHLORDIAZEPOXIDE CAPSULE PO SCH ×3 (06:27→22:49)
[2017-08-25] MEDS: PANTOPRAZOLE SODIUM 40 MG TABLET.DR PO SCH (06:31)
[2017-08-25] MEDS: LEVOTHYROXINE SODIUM 50 MCG TABLET PO SCH (06:31)
[2017-08-25 07:10] VITALS: BP 126/80
--- NOTE | 2017-08-25 07:10 | NUR ---
Received patient awake, lying on bed, resting on a semi- henderson's position with no SOB, distress, patient denies pain at this time. Call light noted within reach. All needs were attended and anticipated. Encouraged patient to use call light whenever assistance is needed. Will continue to monitor closely.
[2017-08-25 07:17] LABS: EOSINOPHILS # (AUTO) 0.1 K/uL (0.0-0.7); EOSINOPHILS % (AUTO) 0.7 % (0.0-7.0); HEMATOCRIT 34.6 % (37-47); HEMOGLOBIN 11.8 G/DL (12.0-16.0); LYMPHOCYTES # (AUTO) 1.4 K/UL (0.8-4.8); LYMPHOCYTES % (AUTO) 16.8 % (20.5-51.5); MEAN CORPUSCULAR HEMOGLOBIN 31.7 UUG (27.0-31.0); MEAN CORPUSCULAR HGB CONC 34 g/dL (32.0-37.0); MEAN CORPUSCULAR VOLUME 93.3 FL (81.0-99.0); MONOCYTES # (AUTO) 0.6 K/UL (0.1-1.30); MONOCYTES % (AUTO) 7.6 % (0.0-11.0); NEUTROPHILS # (AUTO) 6.2 K/UL (1.8-8.9); NEUTROPHILS % (AUTO) 74.9 % (38.5-71.5); PLATELET COUNT (AUTO) 295 K/UL (150-450); RED BLOOD CELL COUNT(AUTO) 3.71 MIL/UL (4.2-5.4); WHITE BLOOD COUNT (AUTO) 8.3 K/UL (4.0-11.2)
[2017-08-25 07:40] LABS: ALANINE AMINOTRANSFERASE 37 U/L (14-59); ALKALINE PHOSPHATASE 93 U/L (50-136); ASPARTATE AMINOTRANSFERASE 21 U/L (15-37); BILIRUBIN,TOTAL 0.8 mg/dL (0.2-1.0); CARBON DIOXIDE 30 mmol/L (21-32); CHLORIDE 100 mmol/L (98-107); CREATININE 0.6 mg/dL (0.6-1.3); GLUCOSE 116 mg/dL (74-106); LIPASE 162 U/L (73-393); MAGNESIUM 1.9 mg/dL (1.8-2.4); PHOSPHOROUS 3.1 mg/dL (2.5-4.9); POTASSIUM 3.7 mmol/L (3.5-5.1); TOTAL PROTEIN, SERUM 5.3 g/dL (6.4-8.2); UREA NITROGEN, BLOOD 14 mg/dL (7-18)
[2017-08-25 08:02] VITALS: BP 126/80
[2017-08-25] MEDS: DULOXETINE 20 MG CAPSULE.DR PO SCH (08:47)
[2017-08-25] MEDS: GABAPENTIN 100 MG CAPSULE PO SCH ×3 (08:47→16:25)
[2017-08-25] MEDS: LIDOCAINE 5% PATCH TD SCH (08:48)
[2017-08-25] MEDS: ACIDOPHILUS/BULGARICUS CHEW TAB PO SCH (08:48)
[2017-08-25] MEDS: DOCUSATE SODIUM 100 MG CAPSULE PO SCH ×2 (08:48→16:25)
[2017-08-25] MEDS: METOPROLOL TARTRATE 25 MG TABLET PO SCH ×2 (08:49→20:40)
[2017-08-25] MEDS: APIXABAN 5 MG TABLET PO SCH ×2 (08:51→21:20)
[2017-08-25] MEDS: HYDROCORTISONE 10 MG TABLET PO SCH ×2 (08:51→16:25)
[2017-08-25] MEDS: MIDODRINE HCL 2.5 MG TABLET PO SCH ×2 (08:52→20:42)
--- NOTE | 2017-08-25 09:49 | NUR ---
Patient noted lying on bed with head of bed above 30 degree angle, resting denies any pain or discomforts at this time. No SOB or distress noted. responsive to verbal and tactile stimuli. Patient's visitor at bedside. All needs attended and anticipated. Call light placed within reach. Will continue to closely monitor.
--- NOTE | 2017-08-25 10:00 | NUR ---
Orthostatic Blood pressure result as reported by PT: Supine: 117/73 sittin/59 (patient denies any dizziness or lightheadedness or any discomforts) patient refused to perform physical therapy.
--- NOTE | 2017-08-25 13:00 | NUR ---
Patient was seen and examined by Dr. Luis Hammond, family brought medication for multiple myeloma prescribed by patient's Oncologist, Dr. Hammond agreed with new orders noted and carried out. Dr. Hammond removed patient's 5 maryuri on her left hip surgical incision, no swelling no bleeding or showed any signs and symptoms of infection. MD Hammond left 3 maryuri on the surgical site. Wound dressing done on left surgical hip incision, patient tolerated well. Family present at bedside and was very appreciative of the care the patient receives.
[2017-08-25] MEDS: DRONABINOL 2.5 MG CAPSULE PO PRN (14:21)
[2017-08-25] MEDS: DEXAMETHASONE 4 MG PO SCH (16:25)
[2017-08-25] MEDS: REVLIMID 10MG PO SCH (16:26)
[2017-08-25] MEDS ORDERED: HOME MED MISCELLANEOUS XX SCH (17:00)
--- NOTE | 2017-08-25 18:59 | NUR ---
Patient awake, lying on bed with head of bed above 15 degree with no SOB, distress or discomforts at this time. Patient denies any pain. no SOB or distress noted. All needs attended and anticipated. Call light within reach. Will endorse to incoming shift.
--- NOTE | 2017-08-25 19:30 | NUR ---
Receive patient in bed, awake, verbally responsive and no signs of respiratory distress. Vitals checked, in stable condition. BP was 139/76, metoprolol given but midodrine was put on hold. Patient complained of pain on right hip with PS 8/10 but explained to the patient that morphine was just given at 6:30pm by AM shift nurse. Non-pharmacological interventions done at this time. Patient appreciated the help. Call light placed in reach. Will continue to monitor the patient.
[2017-08-25 20:00] VITALS: BP 139/76
[2017-08-25] MEDS: ATORVASTATIN 20 MG TABLET PO SCH (20:39)
--- NOTE | 2017-08-25 22:35 | NUR ---
Reassessed patient's pain level, still aching pain on her right hip and she said it reached to 9/10. Morphine IV given at this time. All due PO meds given. Diaper was changed. Will reassess patient for her pain after an hour.
--- NOTE | 2017-08-26 00:35 | NUR ---
Checked patient for pain reassessment but patient already asleep. Pain med. morphine was effective in managing her pain level.
[2017-08-26] MEDS: PANTOPRAZOLE SODIUM 40 MG TABLET.DR PO SCH (06:43)
[2017-08-26] MEDS: LEVOTHYROXINE SODIUM 50 MCG TABLET PO SCH (06:43)
[2017-08-26] MEDS: CLIDINIUM BR/CHLORDIAZEPOXIDE CAPSULE PO SCH ×3 (06:43→22:12)
--- NOTE | 2017-08-26 07:04 | NUR ---
Patient slept the entire night after morphine was given. Assisted patient during her BM thru bedpan, able to remove her bowel today x1. Vitals signs are stable. Denies pain at this time. Will endorse to morning shift nurse.
[2017-08-26 07:10] VITALS: BP 128/85
--- NOTE | 2017-08-26 07:30 | NUR ---
Received patient in bed, awake, verbally responsive, not in any form of acute distress. No complain of pain or discomfort at this time. Assisted to her needs. Call light placed within reach. Reminded to use call light for assistance with verbalized understanding.
[2017-08-26] MEDS: ACIDOPHILUS/BULGARICUS CHEW TAB PO SCH (08:51)
[2017-08-26] MEDS: DOCUSATE SODIUM 100 MG CAPSULE PO SCH ×2 (08:52→17:01)
[2017-08-26] MEDS: DULOXETINE 20 MG CAPSULE.DR PO SCH (08:52)
[2017-08-26] MEDS: GABAPENTIN 100 MG CAPSULE PO SCH ×3 (08:52→17:01)
[2017-08-26] MEDS: MIDODRINE HCL 2.5 MG TABLET PO SCH ×2 (08:53→20:29)
[2017-08-26] MEDS: METOPROLOL TARTRATE 25 MG TABLET PO SCH ×2 (08:54→20:30)
[2017-08-26] MEDS: HYDROCORTISONE 10 MG TABLET PO SCH ×2 (08:57→17:00)
[2017-08-26] MEDS: LIDOCAINE 5% PATCH TD SCH (08:58)
[2017-08-26] MEDS: APIXABAN 5 MG TABLET PO SCH ×2 (08:58→20:45)
--- NOTE | 2017-08-26 10:25 | NUR ---
Patient up on wheelchair with occupational therapy for shower. Patient denies pain or discomfort at this time.
[2017-08-26] MEDS: DRONABINOL 2.5 MG CAPSULE PO PRN (11:31)
[2017-08-26] MEDS: REVLIMID 10MG PO SCH (16:58)
[2017-08-26 17:00] VITALS: BP 113/69
--- NOTE | 2017-08-26 19:30 | NUR ---
Received patient laying on bed, awake, alert and verbally responsive, non-labored breathing and no signs of distress. Patient complained of excruciating pain on her right leg all the way down to her ankle, PS of 9/10. Morphine IV given. Metoprolol withheld for decreased blood pressure. vital signs taken BP 106/72, NE 100, RR 18, on 97% room air. Provided safety measures. Call light in reach. Will continue to monitor patient.
[2017-08-26] MEDS: ATORVASTATIN 20 MG TABLET PO SCH (20:29)
[2017-08-26] MEDS: MORPHINE SULFATE 2 MG/1 ML DISP.SYRIN IVP PRN (20:41)
--- NOTE | 2017-08-26 22:00 | NUR ---
Reassessed patient's status, patient asleep but easily aroused. Per patient, PS 2/10 now. Vitals are stable BP 119/71, HR 90, R 19, 95% on room air. Will continue to monitor the patient.
--- NOTE | 2017-08-27 02:50 | NUR ---
Upon hourly rounds, seen patient turning to sides, reaching for her right knee. I asked the patient what's wrong, she said she's in so much again. Facial gramicing noted, crying at the same time. Assessed patient, pain level of 9/10, she said it was the "worst pain" she had that starts at right heel all the way up to her leg. Elevated her foot with pillow. Vitals checked BP 117/70, HR 101, RR 19, 96% on room air. Will give another Morphine for pain management.
[2017-08-27] MEDS: MORPHINE SULFATE 2 MG/1 ML DISP.SYRIN IVP PRN ×4 (03:00→22:14)
--- NOTE | 2017-08-27 03:00 | NUR ---
Morphine 2mg/ml IV given. Will continue to monitor patient's status.
[2017-08-27] MEDS: CLIDINIUM BR/CHLORDIAZEPOXIDE CAPSULE PO SCH ×3 (06:19→22:12)
[2017-08-27] MEDS: PANTOPRAZOLE SODIUM 40 MG TABLET.DR PO SCH (06:19)
[2017-08-27] MEDS: LEVOTHYROXINE SODIUM 50 MCG TABLET PO SCH (06:19)
--- NOTE | 2017-08-27 06:53 | NUR ---
Patient slept after morphine was given. Per patient, she feel better now. Pain level of 2/10. Vitals are still stable. No signs of respiratory distress. All due meds given. All needs attended to. Call light in reach. Will endorse patient to morning shift nurse.
[2017-08-27 07:31] LABS: EOSINOPHILS % (AUTO) 0.4 % (0.0-7.0); HEMOGLOBIN 11.4 G/DL (12.0-16.0); LYMPHOCYTES # (AUTO) 1.5 K/UL (0.8-4.8); LYMPHOCYTES % (AUTO) 15.1 % (20.5-51.5); MEAN CORPUSCULAR HEMOGLOBIN 30.9 UUG (27.0-31.0); MEAN CORPUSCULAR HGB CONC 34 g/dL (32.0-37.0); MEAN CORPUSCULAR VOLUME 92.1 FL (81.0-99.0); MONOCYTES # (AUTO) 0.8 K/UL (0.1-1.30); MONOCYTES % (AUTO) 8.1 % (0.0-11.0); NEUTROPHILS # (AUTO) 7.7 K/UL (1.8-8.9); NEUTROPHILS % (AUTO) 76.4 % (38.5-71.5); PLATELET COUNT (AUTO) 318 K/UL (150-450); RED BLOOD CELL COUNT(AUTO) 3.69 MIL/UL (4.2-5.4)
[2017-08-27 07:59] LABS: ALANINE AMINOTRANSFERASE 32 U/L (14-59); ALKALINE PHOSPHATASE 75 U/L (50-136); ASPARTATE AMINOTRANSFERASE 22 U/L (15-37); BILIRUBIN,TOTAL 0.8 mg/dL (0.2-1.0); CARBON DIOXIDE 28 mmol/L (21-32); CHLORIDE 98 mmol/L (98-107); CREATININE 0.6 mg/dL (0.6-1.3); GLUCOSE 142 mg/dL (74-106); MAGNESIUM 1.8 mg/dL (1.8-2.4); PHOSPHOROUS 2.9 mg/dL (2.5-4.9); POTASSIUM 3.5 mmol/L (3.5-5.1); TOTAL PROTEIN, SERUM 5.2 g/dL (6.4-8.2); UREA NITROGEN, BLOOD 14 mg/dL (7-18)
--- NOTE | 2017-08-27 08:00 | NUR ---
Received patient asleep. Not in apparent distress. Non-labored breathing,, Call light within reach.
[2017-08-27 08:42] VITALS: BP 124/88
[2017-08-27] MEDS: GABAPENTIN 100 MG CAPSULE PO SCH ×3 (09:26→17:38)
[2017-08-27] MEDS: METOPROLOL TARTRATE 25 MG TABLET PO SCH ×2 (09:26→22:10)
[2017-08-27] MEDS: APIXABAN 5 MG TABLET PO SCH ×2 (09:27→22:12)
[2017-08-27] MEDS: DULOXETINE 20 MG CAPSULE.DR PO SCH (09:27)
[2017-08-27] MEDS: ACIDOPHILUS/BULGARICUS CHEW TAB PO SCH (09:27)
[2017-08-27] MEDS: DOCUSATE SODIUM 100 MG CAPSULE PO SCH ×2 (09:27→17:00)
[2017-08-27] MEDS: MIDODRINE HCL 2.5 MG TABLET PO SCH ×2 (09:27→22:12)
[2017-08-27] MEDS: HYDROCORTISONE 10 MG TABLET PO SCH ×2 (09:27→17:39)
[2017-08-27] MEDS: LIDOCAINE 5% PATCH TD SCH (09:27)
[2017-08-27] MEDS: DRONABINOL 2.5 MG CAPSULE PO PRN (09:28)
--- NOTE | 2017-08-27 09:30 | NUR ---
Patient complained of pain over left leg. Morphine PRN given. Up with physical therapy. Tolerated therapy well. Was able to tolerate breakfast. PRN Marinol taken by patient.
[2017-08-27 11:25] LABS: LYMPHOCYTES % (MANUAL) 14 % (20-40); MONOCYTES % (MANUAL) 7 % (2-10); NEUTROPHILS % (MANUAL) 79 % (42-75)
--- NOTE | 2017-08-27 13:39 | NUR ---
INTERDISCIPLINARY TEAM SUMMARY
[2017-08-27] MEDS: REVLIMID 10MG PO SCH (17:38)
--- NOTE | 2017-08-27 19:30 | NUR ---
Received patient in bed. , Antoine at bedside. Patient is alert and verbally responsive. Able to make needs known. Denies any pain and discomfort at this time. No acute distress. No SOB. Kept clean and dry. All needs attended to promptly. Call light within reach. Will continue to monitor.
[2017-08-27 20:00] VITALS: BP 126/75
[2017-08-27] MEDS: ATORVASTATIN 20 MG TABLET PO SCH (22:12)
[2017-08-27 23:00] LABS: *BILIRUBIN,URIN NEGATIVE (NEGATIVE); *BLOOD, URINE NEGATIVE (NEGATIVE); *CLARITY,URINE SLIGHTLY CLOUDY (CLEAR); *COLOR,URINE YELLOW (YELLOW); *KETONES,URINE NEGATIVE (NEGATIVE); *PROTEIN,URINE NEGATIVE (NEGATIVE); *UROBILINOGEN,URINE 0.2 E.U./dl (NORMAL); LEUKOCYTE ESTERASE ,URINE TRACE (NEGATIVE); NITRITE, URINE NEGATIVE (NEGATIVE); PH,URINE 5.5 (5.0-8.0); UGLUCOSE NEGATIVE (NEGATIVE)
[2017-08-27 23:04] LABS: BACTERIA,URINE FEW /HPF (NONE SEEN); RBC,URINE NONE SEEN /HPF (0-3); SQUAMOUS EPITHELIAL CELL,UR MODERATE /HPF (NONE SEEN)
[2017-08-28] MEDS: MORPHINE SULFATE 2 MG/1 ML DISP.SYRIN IVP PRN ×3 (04:32→18:08)
[2017-08-28] MEDS: CLIDINIUM BR/CHLORDIAZEPOXIDE CAPSULE PO SCH ×3 (06:16→21:03)
[2017-08-28] MEDS: PANTOPRAZOLE SODIUM 40 MG TABLET.DR PO SCH (06:16)
[2017-08-28] MEDS: LEVOTHYROXINE SODIUM 50 MCG TABLET PO SCH (06:17)
--- NOTE | 2017-08-28 06:18 | NUR ---
Patient slept comfortably throughout the night. No acute distress. Pain medication given as needed. Kept clean and dry. All needs attended to promptly. Call light within reach. Will continue to monitor.
[2017-08-28 08:21] VITALS: BP 136/86
[2017-08-28] MEDS: DOCUSATE SODIUM 100 MG CAPSULE PO SCH ×2 (10:12→18:00)
[2017-08-28] MEDS: GABAPENTIN 100 MG CAPSULE PO SCH ×3 (10:13→18:02)
[2017-08-28] MEDS: ACIDOPHILUS/BULGARICUS CHEW TAB PO SCH (10:14)
[2017-08-28] MEDS: METOPROLOL TARTRATE 25 MG TABLET PO SCH ×2 (10:14→21:00)
[2017-08-28] MEDS: DULOXETINE 20 MG CAPSULE.DR PO SCH (10:15)
[2017-08-28] MEDS: HYDROCORTISONE 10 MG TABLET PO SCH ×2 (10:16→17:00)
[2017-08-28] MEDS: MIDODRINE HCL 2.5 MG TABLET PO SCH ×2 (10:17→21:04)
[2017-08-28] MEDS: APIXABAN 5 MG TABLET PO SCH ×2 (10:17→21:03)
[2017-08-28] MEDS: LIDOCAINE 5% PATCH TD SCH (10:18)
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
[2017-08-28] MEDS: REVLIMID 10MG PO SCH (18:04)
--- NOTE | 2017-08-28 19:15 | NUR ---
Recevied pt in bed, appearing to asleep. Arousable to light touch and verbal stimuli. No acute distress noted. Denies pain or discomfort at this time. Verbally responsive and able to make needs known. All safety measures and fall precautions maintained. Call light within reach. Will continue to monitor.
[2017-08-28] MEDS: ATORVASTATIN 20 MG TABLET PO SCH (21:03)
[2017-08-29] MEDS: MORPHINE SULFATE 2 MG/1 ML DISP.SYRIN IVP PRN ×3 (02:23→12:06)
[2017-08-29] MEDS: CLIDINIUM BR/CHLORDIAZEPOXIDE CAPSULE PO SCH ×3 (06:14→22:58)
[2017-08-29] MEDS: LEVOTHYROXINE SODIUM 50 MCG TABLET PO SCH (06:14)
[2017-08-29] MEDS: PANTOPRAZOLE SODIUM 40 MG TABLET.DR PO SCH (06:14)
--- NOTE | 2017-08-29 06:35 | NUR ---
Pt current awake in bed. Slept comfortably throughout most of the evening. No acute distress noted. Verbally responsive and able to make needs known. All needs attended to promptly. Tolerated all medications well. Medicated for pain as ordered by MD. Currently denies pain or discomfort. No SOB noted. All safety measures and fall precautions maintained. Call light within reach. Will continue to monitor.
[2017-08-29] MEDS: GABAPENTIN 300 MG CAPSULE PO SCH ×3 (08:28→16:14)
[2017-08-29] MEDS: METOPROLOL TARTRATE 25 MG TABLET PO SCH ×2 (08:28→21:00)
[2017-08-29] MEDS: ACIDOPHILUS/BULGARICUS CHEW TAB PO SCH (08:28)
[2017-08-29] MEDS: DULOXETINE 20 MG CAPSULE.DR PO SCH (08:28)
[2017-08-29] MEDS: DOCUSATE SODIUM 100 MG CAPSULE PO SCH ×2 (08:28→16:14)
[2017-08-29] MEDS: HYDROCORTISONE 10 MG TABLET PO SCH ×2 (08:29→16:13)
[2017-08-29] MEDS: APIXABAN 5 MG TABLET PO SCH ×2 (08:29→22:58)
[2017-08-29] MEDS: MIDODRINE HCL 2.5 MG TABLET PO SCH ×2 (08:29→22:58)
[2017-08-29] MEDS: LIDOCAINE 5% PATCH TD SCH (08:30)
[2017-08-29 08:46] VITALS: BP 127/78
[2017-08-29] MEDS ORDERED: GABAPENTIN 100 MG CAPSULE PO SCH (09:00)
--- NOTE | 2017-08-29 10:28 | NUR ---
pt seen on rounding. pt vitals stable. bp within normal limits. bp med not given to prevent orthostatic hypotension. pt continues to show short term memory. pt continues to complain about pain even if given morphine. pt ate breakfast and given meds as prescribed. changed lidocaine patch on the back as ordered. pt continues to no not tolerate therapy. no signs of orthorstatic hypotension noted upon transfers and therapy. will cotinue to monitor.
[2017-08-29] MEDS: SENNOSIDES 1 TABLET PO PRN (12:06)
[2017-08-29] MEDS: REVLIMID 10MG PO SCH (16:13)
[2017-08-29] MEDS: DRONABINOL 2.5 MG CAPSULE PO PRN (16:14)
--- NOTE | 2017-08-29 19:15 | NUR ---
Received pt in bed, appearing to be asleep. Arousable to verbal stimuli and light touch. No acute distress noted. Denies pain or discomfort at this time. Call light within reach. All safety measures and fall precautions maintained. Will continue to monitor.
--- NOTE | 2017-08-29 19:31 | NUR ---
pt stable throughout the day. pt continues to sleep interminentlyl. pt asks for morphine for severe pain. witheld one dose because pt continues to be drowsy. pt ate meals during the day. pt has not had a bowel movement. pt given senokot to stimulate bm. pt needs occasional orientation. family requested have morphine given at night time. no sob noted. no infection on site noted. will endorse to shift coordinator nurse.
[2017-08-29 20:45] VITALS: BP 96/56
[2017-08-29] MEDS: ATORVASTATIN 20 MG TABLET PO SCH (22:58)
[2017-08-30] MEDS: MORPHINE SULFATE 2 MG/1 ML DISP.SYRIN IVP PRN (01:06)
[2017-08-30] MEDS ORDERED: MORPHINE SULFATE 4 MG/1 ML DISP.SYRIN ONE (01:11)
[2017-08-30] MEDS: LEVOTHYROXINE SODIUM 50 MCG TABLET PO SCH (06:33)
[2017-08-30] MEDS: PANTOPRAZOLE SODIUM 40 MG TABLET.DR PO SCH (06:33)
[2017-08-30] MEDS: CLIDINIUM BR/CHLORDIAZEPOXIDE CAPSULE PO SCH ×3 (06:33→21:16)
--- NOTE | 2017-08-30 06:49 | NUR ---
Pt slept well throughout most of the evening. Woke up intermittently, complaining of pain. Medicated for pain per MD order. No acute distress noted. Currently denies pain or discomfort. All safety measures and fall precautions maintained. Kept clean and dry. All needs met promptly. Call light within reach. Will continue to monitor.
[2017-08-30 08:16] VITALS: BP 100/63
[2017-08-30] MEDS: METOPROLOL TARTRATE 25 MG TABLET PO SCH ×2 (09:00→21:00)
--- NOTE | 2017-08-30 09:30 | NUR ---
Received patient asleep, easy to wake up. Alert x4. Was able tolerate breakfast. BP 100/63. No dizziness, SOB or other associated S/S present. Held Lopressor for now. Side rails up, call light within reach.
--- NOTE | 2017-08-30 09:30 | NUR ---
Pain over right knee and left leg said was excruciating rated as 10/10. Morphine PRN given.
[2017-08-30] MEDS: DULOXETINE 20 MG CAPSULE.DR PO SCH (09:52)
[2017-08-30] MEDS: DOCUSATE SODIUM 100 MG CAPSULE PO SCH ×2 (09:52→17:55)
[2017-08-30] MEDS: MIDODRINE HCL 2.5 MG TABLET PO SCH ×2 (09:52→21:17)
[2017-08-30] MEDS: ACIDOPHILUS/BULGARICUS CHEW TAB PO SCH (09:52)
[2017-08-30] MEDS: LIDOCAINE 5% PATCH TD SCH (09:52)
[2017-08-30] MEDS: DRONABINOL 2.5 MG CAPSULE PO PRN (09:53)
[2017-08-30] MEDS: GABAPENTIN 300 MG CAPSULE PO SCH ×3 (09:53→17:55)
[2017-08-30] MEDS: APIXABAN 5 MG TABLET PO SCH ×2 (09:54→21:17)
[2017-08-30] MEDS: HYDROCORTISONE 10 MG TABLET PO SCH ×2 (09:55→17:55)
[2017-08-30] MEDS: MORPHINE SULFATE 4 MG/1 ML DISP.SYRIN IV PRN ×2 (09:56→14:59)
--- NOTE | 2017-08-30 14:55 | NUR ---
PATIENT COMPLAINED OF GENERALIZED PAIN RATED 10/10. BP AT 115/70. HR 96.PRN MORPHINE GIVEN
[2017-08-30 15:59] VITALS: BP 115/70
[2017-08-30] MEDS: REVLIMID 10MG PO SCH (17:55)
[2017-08-30] MEDS ORDERED: OXYCODONE HCL 5 MG TABLET PO PRN (19:15)
--- NOTE | 2017-08-30 19:15 | NUR ---
Received pt in bed, appearing to be asleep but easily arousable to verbal stimuli. Verbally responsive and able to make needs known. Denies pain or discomfort at this time. No acute distress noted. All safety measures and fall precautions maintained. Call light within reach. Will continue to monitor.
[2017-08-30 19:48] VITALS: BP 114/72
[2017-08-30] MEDS: ATORVASTATIN 20 MG TABLET PO SCH (21:16)
[2017-08-30] MEDS: OXYCODONE HCL 5 MG TABLET PO SCH (21:16)
[2017-08-30] MEDS: SENNOSIDES 1 TABLET PO PRN (21:17)
[2017-08-30] MEDS ORDERED: OXYCODONE HCL 5 MG TABLET ONE (21:20)
[2017-08-31] MEDS: PANTOPRAZOLE SODIUM 40 MG TABLET.DR PO SCH (06:43)
[2017-08-31] MEDS: CLIDINIUM BR/CHLORDIAZEPOXIDE CAPSULE PO SCH ×3 (06:43→21:33)
[2017-08-31] MEDS: LEVOTHYROXINE SODIUM 50 MCG TABLET PO SCH (06:43)
--- NOTE | 2017-08-31 07:10 | NUR ---
Received patient aslepp, lying on bed with head of bed elevated above 15 degree angle with no shortness of breath, distress or any discomforts at this time. Easily aroused,able to make needs known, all needs were attended and anticipated. Encouraged patient to use call light whenever assistance is needed. Will continue to monitor patient closely.
--- NOTE | 2017-08-31 07:20 | NUR ---
Pt slept comfortably throughout the shift. No acute distress noted. Denies pain or discomfort. All needs met promptly. Tolerated all medications well. Medicated for pain per MD orders. Kept clean and dry. Call light within reach. All safety measures and fall precautions maintained. Will endorse to next shift.
[2017-08-31] MEDS: GABAPENTIN 400 MG CAPSULE PO SCH ×3 (08:53→17:49)
[2017-08-31] MEDS: DULOXETINE 20 MG CAPSULE.DR PO SCH (08:53)
[2017-08-31] MEDS: DOCUSATE SODIUM 100 MG CAPSULE PO SCH ×2 (08:54→17:49)
[2017-08-31] MEDS: ACIDOPHILUS/BULGARICUS CHEW TAB PO SCH (08:54)
[2017-08-31] MEDS: MIDODRINE HCL 2.5 MG TABLET PO SCH ×2 (08:54→21:36)
[2017-08-31] MEDS: APIXABAN 5 MG TABLET PO SCH ×2 (08:55→21:38)
[2017-08-31] MEDS: OXYCODONE HCL 5 MG TABLET PO SCH ×4 (08:55→21:33)
[2017-08-31] MEDS: LIDOCAINE 5% PATCH TD SCH (08:56)
[2017-08-31] MEDS: METOPROLOL TARTRATE 25 MG TABLET PO SCH ×2 (08:57→21:00)
[2017-08-31] MEDS: HYDROCORTISONE 10 MG TABLET PO SCH ×2 (08:58→17:50)
--- NOTE | 2017-08-31 09:50 | NUR ---
Removed the 3 remaining maryuri on patient's left hip as ordered, no bleeding on the site upon removal of the maryuri. surgical site noted intact, no signs and symptoms of infections. patient denies any discomfort upon removal. Tolerated well the procedure. Wound care treatment done. All needs were attended and anticipated, All due medications were given all were tolerated well. Call light placed within reach.
--- NOTE | 2017-08-31 13:50 | NUR ---
Patient noted awake, alert and oriented, with at bedside. No SOB or distress noted at this time. Will continue to monitor.
[2017-08-31 20:00] VITALS: BP 114/67
[2017-08-31] MEDS: REVLIMID 10MG PO SCH (20:06)
--- NOTE | 2017-08-31 20:10 | NUR ---
Revlimid medication administered late due to delayed delivery from pharmacy
[2017-08-31] MEDS: ATORVASTATIN 20 MG TABLET PO SCH (21:33)
[2017-09-01] MEDS: LEVOTHYROXINE SODIUM 50 MCG TABLET PO SCH (06:35)
[2017-09-01] MEDS: PANTOPRAZOLE SODIUM 40 MG TABLET.DR PO SCH (06:35)
[2017-09-01] MEDS: CLIDINIUM BR/CHLORDIAZEPOXIDE CAPSULE PO SCH ×2 (06:35→13:09)
[2017-09-01 07:49] VITALS: BP 104/69
[2017-09-01] MEDS: METOPROLOL TARTRATE 25 MG TABLET PO SCH ×2 (09:00→20:55)
[2017-09-01] MEDS: MIDODRINE HCL 2.5 MG TABLET PO SCH ×2 (09:00→20:42)
[2017-09-01] MEDS: ACIDOPHILUS/BULGARICUS CHEW TAB PO SCH (09:35)
[2017-09-01] MEDS: GABAPENTIN 400 MG CAPSULE PO SCH ×3 (09:35→16:25)
[2017-09-01] MEDS: LIDOCAINE 5% PATCH TD SCH (09:35)
[2017-09-01] MEDS: DULOXETINE 20 MG CAPSULE.DR PO SCH (09:36)
[2017-09-01] MEDS: DOCUSATE SODIUM 100 MG CAPSULE PO SCH ×2 (09:36→16:25)
[2017-09-01] MEDS: HYDROCORTISONE 10 MG TABLET PO SCH ×2 (09:42→16:26)
[2017-09-01] MEDS: OXYCODONE HCL 5 MG TABLET PO SCH ×4 (09:44→20:53)
--- NOTE | 2017-09-01 10:20 | NUR ---
SBAR report received at bedside, board updated. Pt reports having slept well last night. Pt assessed, states pain level of 6/10. Pain medication administered in addition to routine morning medications, except BP meds Metroprolol and Proamatine held r/t BP 105/63, 113 sitting up and 104/69, 95 laying down. Plan for today discussed, Pt expressed concern over possible d/c today. Will continue to monitor Pt BP along with PT ambulation. All personal belongings and call light within reach. Safety and comfort measures met at this time.
[2017-09-01] MEDS: REVLIMID 10MG PO SCH (16:27)
[2017-09-01 19:48] VITALS: BP 100/65
[2017-09-01] MEDS: ATORVASTATIN 20 MG TABLET PO SCH (20:42)
[2017-09-02] MEDS: PANTOPRAZOLE SODIUM 40 MG TABLET.DR PO SCH (06:37)
[2017-09-02] MEDS: LEVOTHYROXINE SODIUM 50 MCG TABLET PO SCH (06:37)
[2017-09-02 06:43] LABS: BASOPHILS % (AUTO) 0.2 % (0.0-2.0); EOSINOPHILS # (AUTO) 0.2 K/uL (0.0-0.7); EOSINOPHILS % (AUTO) 1.9 % (0.0-7.0); HEMATOCRIT 34.1 % (37-47); HEMOGLOBIN 11.5 G/DL (12.0-16.0); LYMPHOCYTES # (AUTO) 1.1 K/UL (0.8-4.8); LYMPHOCYTES % (AUTO) 13.4 % (20.5-51.5); MEAN CORPUSCULAR HEMOGLOBIN 31.4 UUG (27.0-31.0); MEAN CORPUSCULAR HGB CONC 34 g/dL (32.0-37.0); MONOCYTES # (AUTO) 0.5 K/UL (0.1-1.30); MONOCYTES % (AUTO) 5.7 % (0.0-11.0); NEUTROPHILS # (AUTO) 6.4 K/UL (1.8-8.9); NEUTROPHILS % (AUTO) 78.8 % (38.5-71.5); PLATELET COUNT (AUTO) 167 K/UL (150-450); RED BLOOD CELL COUNT(AUTO) 3.67 MIL/UL (4.2-5.4); WHITE BLOOD COUNT (AUTO) 8.2 K/UL (4.0-11.2)
--- NOTE | 2017-09-02 07:00 | NUR ---
Received patient asleep, lying on bed with head of bed above 15 degree angle, no SOB, distress or any display of discomforts noted, patient is easily aroused. All needs were attended and anticipated. call light within reach. Will continue to monitor.
[2017-09-02 07:12] LABS: ALANINE AMINOTRANSFERASE 22 U/L (14-59); ALKALINE PHOSPHATASE 63 U/L (50-136); ASPARTATE AMINOTRANSFERASE 18 U/L (15-37); BILIRUBIN,TOTAL 0.9 mg/dL (0.2-1.0); CARBON DIOXIDE 34 mmol/L (21-32); CHLORIDE 101 mmol/L (98-107); CREATININE 0.6 mg/dL (0.6-1.3); GLUCOSE 116 mg/dL (74-106); MAGNESIUM 1.5 mg/dL (1.8-2.4); PHOSPHOROUS 3.9 mg/dL (2.5-4.9); POTASSIUM 3.3 mmol/L (3.5-5.1); UREA NITROGEN, BLOOD 10 mg/dL (7-18)
[2017-09-02] MEDS: ACIDOPHILUS/BULGARICUS CHEW TAB PO SCH (08:56)
[2017-09-02] MEDS: DULOXETINE 20 MG CAPSULE.DR PO SCH (08:56)
[2017-09-02] MEDS: GABAPENTIN 400 MG CAPSULE PO SCH ×2 (08:57→12:52)
[2017-09-02] MEDS: OXYCODONE HCL 5 MG TABLET PO SCH ×2 (08:57→12:52)
[2017-09-02] MEDS: HYDROCORTISONE 10 MG TABLET PO SCH (08:57)
[2017-09-02] MEDS: LIDOCAINE 5% PATCH TD SCH (08:58)
[2017-09-02] MEDS: MIDODRINE HCL 2.5 MG TABLET PO SCH (08:58)
[2017-09-02 09:00] VITALS: BP 104/67
[2017-09-02] MEDS: METOPROLOL TARTRATE 25 MG TABLET PO SCH (09:00)
[2017-09-02] MEDS: DOCUSATE SODIUM 100 MG CAPSULE PO SCH (09:32)
--- NOTE | 2017-09-02 12:11 | NUR ---
Patient awake, alert sitting on the wheelchair doing physical therapy without difficulty. Will continue to monitor.
[2017-09-02] MEDS ORDERED: MAGNESIUM OXIDE 400 MG TABLET PO ONE (12:45)
[2017-09-02] MEDS ORDERED: POTASSIUM CHLORIDE 20 MEQ TAB.PRT.SR PO ONE (12:45)
--- NOTE | 2017-09-02 13:47 | NUR ---
Patient noted asleep, lying on bed, easily aroused no SOB, distress or discomforts noted at this time. call light placed within reach. Encouraged patient to use call light whenever assistance is needed. Will continue to monitor.
--- NOTE | 2017-09-02 14:30 | NUR ---
Received new order from Dr. Luke Bronson to transfer the patient to Medical Surgical Unit due to confusion and Altered Mental Status. Orders noted and carried out.
--- NOTE | 2017-09-02 14:35 | NUR ---
Called patient's daughter Brenda House ad notified of the order to transfer the patient to Medical Surgical Unit and she agreed.
--- NOTE | 2017-09-02 16:30 | NUR ---
Patient was transferred to Medical Surgical Unit, report given to Pramod DUARTE. All belongings were complete, photos taken on left incision placed inside the chart. Pharmacy was informed of patient's transfer to Medical Surgical Unit. patient was transported by RN and DESK PEN SET ASSEMBLER, transported on her hospital bed. No discomforts during transport. informed and was very appreciative of the care that the patient received in ARU.
[2017-09-02] MEDS ORDERED: GABA-536 PO (17:34)
[2017-09-02] MEDS ORDERED: HYDR10TA PO ×2 (17:37→17:38)
[2017-09-02] MEDS ORDERED: ACID1TAB4 PO (17:43)
[2017-09-02] MEDS ORDERED: DRON2.5C3 PO (17:48)
[2017-09-02] MEDS ORDERED: METO25TA6 PO (17:51)
[2017-09-02] MEDS ORDERED: PANT40TA2 PO (17:52)
[2017-09-02] MEDS ORDERED: MORP2CAR IV (17:55)
[2017-09-02] MEDS ORDERED: OXYC5TAB3 PO ×2 (17:56→17:57)
[2017-09-02] MEDS ORDERED: MIDO2.5T PO (17:58)
[2017-09-02] MEDS ORDERED: DEXA4TAB PO (18:01)
[2017-09-02] MEDS ORDERED: LENA10CA PO (18:02)
[2017-09-02] MEDS ORDERED: ZINC113P2 TP (18:04)
--- NOTE | 2017-09-08 14:32 | NUR ---
I agree Addendum: 09/08/17 at 1433 by DUNCAN AMAYA OT Amended: Links added.
[2017-09-08] MEDS ORDERED: OXYC10TA49 PO (14:41)
[2017-09-08] MEDS ORDERED: HYDR10TA PO (14:41)
[2017-09-08] MEDS ORDERED: HYDR-3326 PO (14:41)
[2017-09-08] MEDS ORDERED: ATOR10TA PO (14:41)
[2017-09-08] MEDS ORDERED: MULT1TAB73 PO (14:41)
[2017-09-08] MEDS ORDERED: NYST15CR TOP (14:41)
[2017-09-08] MEDS ORDERED: CRAN450T9 PO (14:41)
[2017-09-08] MEDS ORDERED: BISA10SU61 RC (14:41)
[2017-09-08] MEDS ORDERED: MENT71OI TOP (14:41)
== END 2017-09-02 16:30 | disposition short-term general hospital (02) | DRG 560 ==
PROVIDERS: ADMIT Physical Medicine & Rehabilitation Pain Medicine; ATTEND Physical Medicine & Rehabilitation Pain Medicine
DX: S72.012D Unspecified intracapsular fracture of left femur, subsequent encounter for closed fracture with routine healing (principal); I48.92 Unspecified atrial flutter; E44.0 Moderate protein-calorie malnutrition; I82.412 Acute embolism and thrombosis of left femoral vein; C90.00 Multiple myeloma not having achieved remission; E27.40 Unspecified adrenocortical insufficiency; I95.9 Hypotension, unspecified; I48.91 Unspecified atrial fibrillation; E66.01 Morbid (severe) obesity due to excess calories; I48.2 Chronic atrial fibrillation; I31.3 Pericardial effusion (noninflammatory); I11.9 Hypertensive heart disease without heart failure; W19.XXXD Unspecified fall, subsequent encounter; Z86.711 Personal history of pulmonary embolism; G89.4 Chronic pain syndrome; Z68.33 Body mass index [BMI] 33.0-33.9, adult; E03.9 Hypothyroidism, unspecified; F32.9 Major depressive disorder, single episode, unspecified; R41.82 Altered mental status, unspecified; E87.6 Hypokalemia; F43.10 Post-traumatic stress disorder, unspecified; H35.30 Unspecified macular degeneration; M19.90 Unspecified osteoarthritis, unspecified site; M48.04 Spinal stenosis, thoracic region; M48.061 Spinal stenosis, lumbar region without neurogenic claudication; M84.48XD Pathological fracture, other site, subsequent encounter for fracture with routine healing; Z79.01 Long term (current) use of anticoagulants; M54.40 Lumbago with sciatica, unspecified side; Z79.891 Long term (current) use of opiate analgesic; Z87.01 Personal history of pneumonia (recurrent); Z92.21 Personal history of antineoplastic chemotherapy; R26.81 Unsteadiness on feet; R42 Dizziness and giddiness; R60.0 Localized edema; Z88.1 Allergy status to other antibiotic agents; Z88.8 Allergy status to other drugs, medicaments and biological substances; Z90.49 Acquired absence of other specified parts of digestive tract; H74.92 Unspecified disorder of left middle ear and mastoid
CPT/HCPCS: 36415; 70030-TC; 71010; 72131; 82533; 83690; 83735; 84100; 85025; 87086; 92523; 97110; 97112; 97116; 97530; 97535; A4663; J1720; J2270; J3475; J7030; J7040; J7060; Q0167

== ENCOUNTER 2017-09-02 17:23 | Inpatient (IN) | payer MEDICARE, OTHER ==
[~2017-09-02] VITALS: Ht 160 cm; Wt 86.2 kg
--- NOTE | 2017-09-02 17:00 | NUR ---
RECIEVED PATIENT FROM REHAB UNIT VIA BED AWAKE COOPERATE WELL SOME FORGETFUL BUT ABLE TO ANSWER SIMPLE QUESTION VS TAKEN STABLE ON FALL PRECAUTION BED ALARM ON AND CALL LIGHT WITHIN REACH AND REMIND TO CALL WHEN NEEDED
[~2017-09-02 17:23] MED LIST changes: +APIX2.5T PO; +ATOR20TA PO; +LACT1TAB12 PO; +METO75TA PO
[2017-09-02] MEDS ORDERED: GABA-536 PO (17:34)
[2017-09-02] MEDS ORDERED: HYDR10TA PO ×2 (17:37→17:38)
[2017-09-02] MEDS ORDERED: ACID1TAB4 PO (17:43)
[2017-09-02] MEDS ORDERED: DRON2.5C3 PO (17:48)
[2017-09-02] MEDS ORDERED: METO25TA6 PO (17:51)
[2017-09-02] MEDS ORDERED: PANT40TA2 PO (17:52)
[2017-09-02 17:55] VITALS: BP 107/60
[2017-09-02] MEDS ORDERED: MORP2CAR IV (17:55)
[2017-09-02] MEDS ORDERED: OXYC5TAB3 PO ×2 (17:56→17:57)
[2017-09-02] MEDS ORDERED: MIDO2.5T PO (17:58)
--- NOTE | 2017-09-02 18:00 | NUR ---
EAT DINNER WELL FAMILY AT BEDSIDE LEFT HIP DSG D/I S.P ORIF OF LT FEMUR
[2017-09-02] MEDS ORDERED: DEXA4TAB PO (18:01)
[2017-09-02] MEDS ORDERED: LENA10CA PO (18:02)
[2017-09-02] MEDS ORDERED: ZINC113P2 TP (18:04)
--- NOTE | 2017-09-02 20:10 | NUR ---
GOT A CALL PHARMACIST, WAS TOLD TO GET JAMAL OF DR. CONLEY FOR MEDICATION RECONCILIATION, TEXTED DR. CONLEY AT AROUND 2015 HRS.
[2017-09-02 20:28] VITALS: BP 119/71
[2017-09-02] MEDS ORDERED: SENNOSIDES 1 TABLET PO PRN (21:45)
[2017-09-02] MEDS ORDERED: DRONABINOL 2.5 MG CAPSULE PO PRN (21:45)
[2017-09-02] MEDS ORDERED: ACETAMINOPHEN 325 MG TABLET PO PRN (21:45)
[2017-09-02] MEDS ORDERED: ALBUTEROL SULFATE 2.5 MG/3 ML NEBU NEB PRN (21:45)
[2017-09-02] MEDS ORDERED: DOCUSATE SODIUM 100 MG CAPSULE PO PRN (21:45)
[2017-09-02] MEDS ORDERED: MORPHINE SULFATE 2 MG/1 ML DISP.SYRIN IV PRN (21:45)
[2017-09-02] MEDS ORDERED: OXYCODONE HCL 5 MG TABLET ONE (22:59)
[2017-09-02] MEDS: OXYCODONE HCL 5 MG TABLET PO SCH (23:12)
[2017-09-03 05:02] LABS: *BILIRUBIN,URIN NEGATIVE (NEGATIVE); *BLOOD, URINE NEGATIVE (NEGATIVE); *CLARITY,URINE CLEAR (CLEAR); *COLOR,URINE YELLOW (YELLOW); *KETONES,URINE NEGATIVE (NEGATIVE); *PROTEIN,URINE NEGATIVE (NEGATIVE); *UROBILINOGEN,URINE 0.2 E.U./dl (NORMAL); LEUKOCYTE ESTERASE ,URINE NEGATIVE (NEGATIVE); NITRITE, URINE NEGATIVE (NEGATIVE); UGLUCOSE NEGATIVE (NEGATIVE)
[2017-09-03 05:10] LABS: BACTERIA,URINE FEW /HPF (NONE SEEN); RBC,URINE 0-3 /HPF (0-3); SQUAMOUS EPITHELIAL CELL,UR FEW /HPF (NONE SEEN); WBC,URINE 0-3 /HPF (0-3)
[2017-09-03 05:12] VITALS: BP 134/73
--- NOTE | 2017-09-03 05:20 | NUR ---
PATIENT SLEPT GOOD THRU THE NIGHT. BLADDER SCAN DONE WITH 800 ML OF URINE, PATIENT UNABLE TO VOID. INSERTED WOMACK CATH FOR URINARY RETENTION YIELDED CLEAR YELLOW URINE. SENT URINE FOR TESTING ORDERED. OTHERWISE VSS. CALL LIGHT WITHIN REACH.
[2017-09-03 06:28] LABS: BASOPHILS % (AUTO) 0.1 % (0.0-2.0); EOSINOPHILS # (AUTO) 0.1 K/uL (0.0-0.7); EOSINOPHILS % (AUTO) 1.3 % (0.0-7.0); HEMATOCRIT 32.6 % (37-47); HEMOGLOBIN 11.2 G/DL (12.0-16.0); LYMPHOCYTES % (AUTO) 13.8 % (20.5-51.5); MEAN CORPUSCULAR HEMOGLOBIN 32.1 UUG (27.0-31.0); MEAN CORPUSCULAR HGB CONC 35 g/dL (32.0-37.0); MEAN CORPUSCULAR VOLUME 93.1 FL (81.0-99.0); MONOCYTES # (AUTO) 0.5 K/UL (0.1-1.30); MONOCYTES % (AUTO) 7.2 % (0.0-11.0); NEUTROPHILS # (AUTO) 5.8 K/UL (1.8-8.9); NEUTROPHILS % (AUTO) 77.6 % (38.5-71.5); PLATELET COUNT (AUTO) 141 K/UL (150-450); WHITE BLOOD COUNT (AUTO) 7.4 K/UL (4.0-11.2)
[2017-09-03 06:56] LABS: ALANINE AMINOTRANSFERASE 20 U/L (14-59); ALKALINE PHOSPHATASE 56 U/L (50-136); ASPARTATE AMINOTRANSFERASE 17 U/L (15-37); CARBON DIOXIDE 32 mmol/L (21-32); CHLORIDE 101 mmol/L (98-107); CREATININE 0.5 mg/dL (0.6-1.3); GLUCOSE 107 mg/dL (74-106); MAGNESIUM 1.4 mg/dL (1.8-2.4); PHOSPHOROUS 3.5 mg/dL (2.5-4.9); POTASSIUM 3.4 mmol/L (3.5-5.1); TOTAL PROTEIN, SERUM 5.1 g/dL (6.4-8.2); UREA NITROGEN, BLOOD 12 mg/dL (7-18)
--- NOTE | 2017-09-03 08:10 | NUR ---
RECEIVED PATIENT ON THE FIRST STEP YOGESH AWAKE ALERT AND AWARE BUT SOMEWHAT MIXED UP TOTALLY DEPENDENT ON NURSES FOR ALL ADL BREAKFAST SET UP AND SHE IS FEEDING SELF BUT APPETITE IS POOR BUT SHE DRANK A CAN OF ENSURE THAT IS PROVIDED BY HER .CALL LIGHT AND PERSONAL BELONGINGS ARE WITHIN EASY REACH WOMACK CATH WITH YELLOW URINE DRAINAGE.
[2017-09-03] MEDS: ACIDOPHILUS/BULGARICUS CHEW TAB PO SCH (08:35)
[2017-09-03] MEDS: DULOXETINE 20 MG CAPSULE.DR PO SCH (08:35)
[2017-09-03] MEDS: LEVOTHYROXINE SODIUM 50 MCG TABLET PO SCH (08:36)
[2017-09-03] MEDS: PANTOPRAZOLE SODIUM 40 MG TABLET.DR PO SCH (08:36)
[2017-09-03] MEDS: METOPROLOL TARTRATE 25 MG TABLET PO SCH ×2 (08:37→20:24)
[2017-09-03] MEDS: OXYCODONE HCL 5 MG TABLET PO SCH ×4 (08:40→21:00)
[2017-09-03] MEDS: HYDROCORTISONE 10 MG TABLET PO SCH ×2 (08:43→16:46)
[2017-09-03] MEDS: GABAPENTIN 400 MG CAPSULE PO SCH ×3 (08:43→16:44)
[2017-09-03] MEDS ORDERED: Medication Not On Formulary EA (Lactobacillus Acidophilus (Acidophilus) 1 EACH) PO SCH (09:00)
[2017-09-03] MEDS ORDERED: LENALIDOMIDE 10 MG PO SCH (09:00)
[2017-09-03] MEDS ORDERED: POTASSIUM CHLORIDE 20 MEQ TAB.PRT.SR PO ONE (11:15)
[2017-09-03 11:27] VITALS: BP 102/60
--- NOTE | 2017-09-03 13:18 | NUR ---
PATIENT SEEN BY THE PHYSICAL THERAPY WITH POOR ENDURANCE ABLE TO TAKE FEW STEPS ONLY AND BACK TO BED.MEDICATED FOR POTASSIUM LEVEL OF 3.4 ORDERED.
--- NOTE | 2017-09-03 13:35 | NUR ---
DR FONTAINE CALLED AND NOTIFIED OF FUNGAL INFECTIONS UNDER BOTH BREASTS BOTH GROINS AND ANAL AREAS WITH NEW ORDERS AND NOTED.
[2017-09-03] MEDS: NYSTATIN CREAM 30 GM TUBE TOP SCH ×2 (15:09→22:30)
[2017-09-03 15:30] VITALS: BP 99/62
[2017-09-03] MEDS: MAGNESIUM SULFATE/D5W 100 ML IV SCH ×4 (15:41→18:58)
[2017-09-03] MEDS: REVLIMID 10MG PO SCH (16:46)
--- NOTE | 2017-09-03 18:00 | NUR ---
MAGNESSIUM LEVEL IS 1.4 POTASSIUM LEVEL IS 3.4 WITH NEW ORDERS AND NOTED.MAGNESSIUM INFUSSION REMAINS IN PROGRESS ORDERED.
--- NOTE | 2017-09-03 19:30 | NUR ---
RECEIVED IN BED, ASLEEP HOB ELEVATED, NO SOB NO CHEST PAIN NOTED, WOMACK CATH PATENT, NO COMPLAIN OF PAIN AT THIS TIME, CONT TO MONITOR.
[2017-09-03 20:00] VITALS: BP 99/58
[2017-09-03] MEDS: ATORVASTATIN 20 MG TABLET PO SCH (20:23)
--- NOTE | 2017-09-03 21:30 | NUR ---
PATIENT TOO SLEEPY HELD 2100 PAIN MEDS AT THIS TIME. NO COMPLAIN OF PAIN AT THIS TIME.
[2017-09-04] MEDS: ALPRAZOLAM 0.5 MG TABLET PO PRN (01:20)
[2017-09-04] MEDS: OXYCODONE HCL 5 MG TABLET PO SCH ×5 (01:28→18:03)
--- NOTE | 2017-09-04 01:28 | NUR ---
PATIENT AWAKE, VERY RESTLESS, TRIES TO CLIMB OUT OF BED, COMPLAIN OF LEFT HIP PAIN 8/, GIVEN PAIN MEDS, REORIENT PATIENT, CONT TO MONITOR.
--- NOTE | 2017-09-04 02:30 | NUR ---
PATIENT WENT BACK TO SLEEP, NO FURTHER COMPLAIN OF PAIN AT THIS TIME. CALL LIGHT WITHIN REACH.
[2017-09-04] MEDS: LEVOTHYROXINE SODIUM 50 MCG TABLET PO SCH (06:08)
[2017-09-04] MEDS: PANTOPRAZOLE SODIUM 40 MG TABLET.DR PO SCH (06:08)
[2017-09-04 06:16] LABS: CARBON DIOXIDE 31 mmol/L (21-32); CHLORIDE 101 mmol/L (98-107); CREATININE 0.5 mg/dL (0.6-1.3); GLUCOSE 102 mg/dL (74-106); MAGNESIUM 1.9 mg/dL (1.8-2.4); POTASSIUM 4.1 mmol/L (3.5-5.1); UREA NITROGEN, BLOOD 8 mg/dL (7-18)
[2017-09-04 06:30] VITALS: BP 106/78
--- NOTE | 2017-09-04 08:00 | NUR ---
Awake, confused, oriented to name, trying to get out of bed. Assisted to bedside commode. With large BM. Sponge bath given. Repositioned comfortably back to bed. Joseph catheter to drainage bag
[2017-09-04] MEDS: ACIDOPHILUS/BULGARICUS CHEW TAB PO SCH (08:52)
[2017-09-04] MEDS: HYDROCORTISONE 10 MG TABLET PO SCH ×2 (08:52→18:02)
[2017-09-04] MEDS: DULOXETINE 20 MG CAPSULE.DR PO SCH (08:52)
[2017-09-04] MEDS: GABAPENTIN 400 MG CAPSULE PO SCH ×4 (08:53→18:02)
[2017-09-04] MEDS: METOPROLOL TARTRATE 25 MG TABLET PO SCH ×2 (08:53→21:41)
[2017-09-04] MEDS: NYSTATIN CREAM 30 GM TUBE TOP SCH ×2 (08:54→21:41)
[2017-09-04 11:32] VITALS: BP 103/62
--- NOTE | 2017-09-04 14:00 | NUR ---
Medication due not given, patient sleeping even with attempt to wake up.
[2017-09-04 15:17] VITALS: BP 101/67
--- NOTE | 2017-09-04 17:00 | NUR ---
Family at bedside, supportive, assisted with meal
[2017-09-04] MEDS ORDERED: FUROSEMIDE 20 MG/2 ML VIAL IV ONE (17:45)
[2017-09-04] MEDS: REVLIMID 10MG PO SCH (18:02)
[2017-09-04] MEDS: PIPERACILLIN/TAZOBACTAM/D5W 3.375 G in PREMIXED 1 EACH IV SCH (18:06)
[2017-09-04] MEDS: APIXABAN 5 MG TABLET PO SCH (18:41)
--- NOTE | 2017-09-04 18:51 | NUR ---
For CT scan of the head, transported by bed.
--- NOTE | 2017-09-04 19:35 | NUR ---
PATIENT AWAKE BUT FORGETFUL, NO SOB NO CHEST PAIN NOTED, WOMACK CATH PATENT DRAINING WITH YELLOW COLOR URINE IN MODERATE AMOUNT, CONT ON PAIN MANAGEMENT. KEPT COMFORTABLE.
[2017-09-04 20:20] VITALS: BP 95/52
[2017-09-04] MEDS: ATORVASTATIN 20 MG TABLET PO SCH (21:40)
[2017-09-05] MEDS: OXYCODONE HCL 5 MG TABLET PO SCH ×5 (00:07→20:34)
[2017-09-05] MEDS: PIPERACILLIN/TAZOBACTAM/D5W 3.375 G in PREMIXED 1 EACH IV SCH ×3 (01:40→18:20)
[2017-09-05 04:33] VITALS: BP 94/52
--- NOTE | 2017-09-05 05:49 | NUR ---
PATIENT SLEPT MOST OF THE NIGHT, NO SOB NO CHEST PAIN NOTED, WOMACK CATH PATENT WITH YELLOW COLOR URINE IN MODERATE AMOUNT, LEFT HIP DRESSING INTACT, CONT ON PAIN MANAGEMENT. CONT TO MONITOR.
[2017-09-05] MEDS: LEVOTHYROXINE SODIUM 50 MCG TABLET PO SCH (06:10)
[2017-09-05] MEDS: PANTOPRAZOLE SODIUM 40 MG TABLET.DR PO SCH (06:10)
[2017-09-05 06:46] LABS: CARBON DIOXIDE 28 mmol/L (21-32); CHLORIDE 100 mmol/L (98-107); CREATININE 0.5 mg/dL (0.6-1.3); GLUCOSE 112 mg/dL (74-106); MAGNESIUM 1.7 mg/dL (1.8-2.4); PHOSPHOROUS 3.2 mg/dL (2.5-4.9); POTASSIUM 3.5 mmol/L (3.5-5.1); UREA NITROGEN, BLOOD 8 mg/dL (7-18)
[2017-09-05 06:56] LABS: BASOPHILS % (AUTO) 0.4 % (0.0-2.0); EOSINOPHILS # (AUTO) 0.2 K/uL (0.0-0.7); EOSINOPHILS % (AUTO) 2.1 % (0.0-7.0); HEMATOCRIT 33.1 % (31.2-41.9); HEMOGLOBIN 11.5 g/dL (10.9-14.3); LYMPHOCYTES # (AUTO) 0.9 K/uL (20.0-40.0); LYMPHOCYTES % (AUTO) 12.7 % (20.5-51.5); MEAN CORPUSCULAR HEMOGLOBIN 32.2 uug (24.7-32.8); MEAN CORPUSCULAR HGB CONC 35 g/dL (32.3-35.6); MEAN CORPUSCULAR VOLUME 92.9 fL (75.5-95.3); MONOCYTES # (AUTO) 0.7 K/uL (2.0-10.0); MONOCYTES % (AUTO) 9.9 % (0.0-11.0); NEUTROPHILS # (AUTO) 5.5 K/uL (1.8-8.9); NEUTROPHILS % (AUTO) 74.9 % (38.5-71.5); PLATELET COUNT (AUTO) 143 K/uL (179-408); RED BLOOD CELL COUNT(AUTO) 3.57 MIL/uL (3.63-4.92); WHITE BLOOD COUNT (AUTO) 7.4 K/uL (3.8-11.8)
--- NOTE | 2017-09-05 08:00 | NUR ---
Pt received laying in bed, semi fowlers, no acute distress noted. Pt is AOx1, noted to be confused. Hep lock in left forearm, intact and patent. Joseph catheter in place, urine yellow in color. Denies any pain at this time. Bed in low and locked position. Call light within reach.
[2017-09-05 08:01] VITALS: BP 109/74
[2017-09-05] MEDS: DULOXETINE 20 MG CAPSULE.DR PO SCH (08:19)
[2017-09-05] MEDS: GABAPENTIN 400 MG CAPSULE PO SCH ×3 (08:19→16:36)
[2017-09-05] MEDS: ACIDOPHILUS/BULGARICUS CHEW TAB PO SCH (08:19)
[2017-09-05] MEDS: METOPROLOL TARTRATE 25 MG TABLET PO SCH ×2 (08:22→20:34)
[2017-09-05] MEDS: NYSTATIN CREAM 30 GM TUBE TOP SCH ×2 (08:23→20:46)
[2017-09-05] MEDS: APIXABAN 5 MG TABLET PO SCH ×2 (08:25→16:37)
[2017-09-05] MEDS: HYDROCORTISONE 10 MG TABLET PO SCH ×2 (08:25→16:37)
[2017-09-05] MEDS ORDERED: POTASSIUM CHLORIDE 20 MEQ TAB.PRT.SR PO ONE (10:15)
[2017-09-05] MEDS ORDERED: MAGNESIUM OXIDE 400 MG TABLET PO ONE (10:15)
[2017-09-05 10:41] VITALS: BP 120/60
--- NOTE | 2017-09-05 11:20 | NUR ---
oxycodone in am not given, pt observed to be drowsy but arousable. Vital signs wnl. Will continue to monitor.
[2017-09-05 11:46] VITALS: BP 120/60
--- NOTE | 2017-09-05 14:14 | NUR ---
Pt sitting up in bed at this time, falling asleep at times. Pt at bedside. No acute distress noted. Will continue to monitor for safety.
--- NOTE | 2017-09-05 14:37 | NUR ---
oxycodone not given at 1300 pt asleep and b/p 98/62. No physical discomfort noted. Will continue to monitor for safety.
[2017-09-05 15:34] VITALS: BP 98/62
[2017-09-05] MEDS: TAMSULOSIN HCL 0.4 MG CAP.SR.24H PO SCH ×2 (16:36→20:35)
--- NOTE | 2017-09-05 16:51 | NUR ---
Pt mai catheter removed, tolerated well. urine yellow in color. Pt denies any physical pain at this time. No acute distress noted.
--- NOTE | 2017-09-05 18:31 | NUR ---
pt family expressed concern about seeing some blood in saliva, but this technical publications writer did not observe any blood in sputum. Will notify MD of pt family concern.
--- NOTE | 2017-09-05 18:33 | NUR ---
pt oxycodone at 1700 not given, pt b/p 98/62 and pt in and out of sleep when family not at bedside. Pt denies any physical pain. Will continue to monitor for safety.
--- NOTE | 2017-09-05 19:30 | NUR ---
Received patient laying comfortably in bed. No acute distress noted. No c/o sob, n/v. Patient is A&O x2. C/o pain on the left hip, evidence by facial grimacing and guarding. Will review meds, will give meds as ordered. IV access on the left FA patent and intact. Redness noted on the groin and under the breast. Dressing on the left hip c/d/i. DVT pumps on. Patient is on [facility] specialty mattress. Incontinent Diaper. Safety initiated. Call light within reach. Will continue to monitor.
[2017-09-05 20:00] VITALS: BP 102/62
[2017-09-05] MEDS: ATORVASTATIN 20 MG TABLET PO SCH (20:35)
[2017-09-06] MEDS: PIPERACILLIN/TAZOBACTAM/D5W 3.375 G in PREMIXED 1 EACH IV SCH ×3 (01:03→16:51)
[2017-09-06 05:55] VITALS: BP 108/74
[2017-09-06] MEDS: PANTOPRAZOLE SODIUM 40 MG TABLET.DR PO SCH (06:01)
[2017-09-06] MEDS: LEVOTHYROXINE SODIUM 50 MCG TABLET PO SCH (06:01)
--- NOTE | 2017-09-06 06:12 | NUR ---
Patient slept t/o shift. Patient was in pain evidence by facial grimacing and guarding. Meds given, relieved by pain meds evidence by no facial grimacing. No further acute distress noted. Room Air. Patient's IV access on the Left FA remains patent and intact. Nystatin cream applied on red areas in the groin and breast. Vital Signs stable. Dressing on the left hip C/D/I. Poor urinte output discussed with Charge Nurse Delisa. DVT pump on right leg. All meds given as ordered. All needs met. Safety and comfort measures maintained t/o shift.
[2017-09-06 06:49] LABS: BASOPHILS % (AUTO) 0.3 % (0.0-2.0); EOSINOPHILS # (AUTO) 0.1 K/uL (0.0-0.7); EOSINOPHILS % (AUTO) 1.9 % (0.0-7.0); HEMATOCRIT 34.7 % (37-47); HEMOGLOBIN 11.8 G/DL (12.0-16.0); LYMPHOCYTES # (AUTO) 1.3 K/UL (0.8-4.8); LYMPHOCYTES % (AUTO) 17.6 % (20.5-51.5); MEAN CORPUSCULAR HEMOGLOBIN 31.7 UUG (27.0-31.0); MEAN CORPUSCULAR HGB CONC 34 g/dL (32.0-37.0); MEAN CORPUSCULAR VOLUME 92.9 FL (81.0-99.0); MONOCYTES # (AUTO) 0.6 K/UL (0.1-1.30); MONOCYTES % (AUTO) 8.1 % (0.0-11.0); NEUTROPHILS # (AUTO) 5.6 K/UL (1.8-8.9); NEUTROPHILS % (AUTO) 72.1 % (38.5-71.5); PLATELET COUNT (AUTO) 159 K/UL (150-450); RED BLOOD CELL COUNT(AUTO) 3.73 MIL/UL (4.2-5.4); WHITE BLOOD COUNT (AUTO) 7.6 K/UL (4.0-11.2)
[2017-09-06 07:03] LABS: ALANINE AMINOTRANSFERASE 23 U/L (14-59); ALKALINE PHOSPHATASE 54 U/L (50-136); ASPARTATE AMINOTRANSFERASE 24 U/L (15-37); BILIRUBIN,TOTAL 1.4 mg/dL (0.2-1.0); CARBON DIOXIDE 29 mmol/L (21-32); CHLORIDE 102 mmol/L (98-107); CREATININE 0.6 mg/dL (0.6-1.3); GLUCOSE 96 mg/dL (74-106); MAGNESIUM 1.5 mg/dL (1.8-2.4); PHOSPHOROUS 2.7 mg/dL (2.5-4.9); POTASSIUM 3.7 mmol/L (3.5-5.1); TOTAL PROTEIN, SERUM 5.4 g/dL (6.4-8.2); UREA NITROGEN, BLOOD 9 mg/dL (7-18)
--- NOTE | 2017-09-06 08:00 | NUR ---
AWAKE FORGETFUL COOPERATE WELL NO SOB OR PAIN ON FALL PRECAUTION BED ALARM ON AND CALL LIGHT WITHIN REACH
[2017-09-06] MEDS: ACIDOPHILUS/BULGARICUS CHEW TAB PO SCH (08:11)
[2017-09-06] MEDS: TAMSULOSIN HCL 0.4 MG CAP.SR.24H PO SCH ×2 (08:11→20:12)
[2017-09-06] MEDS: GABAPENTIN 400 MG CAPSULE PO SCH ×4 (08:11→16:49)
[2017-09-06] MEDS: OXYCODONE HCL 5 MG TABLET PO SCH ×5 (08:12→20:13)
[2017-09-06] MEDS: METOPROLOL TARTRATE 25 MG TABLET PO SCH ×2 (08:12→20:12)
[2017-09-06] MEDS: DULOXETINE 20 MG CAPSULE.DR PO SCH (08:12)
[2017-09-06] MEDS: ALPRAZOLAM 0.5 MG TABLET PO PRN (08:13)
[2017-09-06] MEDS: NYSTATIN CREAM 30 GM TUBE TOP SCH ×2 (08:14→20:13)
[2017-09-06] MEDS: APIXABAN 5 MG TABLET PO SCH ×2 (08:20→16:49)
[2017-09-06] MEDS: HYDROCORTISONE 10 MG TABLET PO SCH ×2 (08:20→16:49)
[2017-09-06] MEDS: MAGNESIUM SULFATE/D5W 100 ML IV SCH ×4 (10:59→14:25)
[2017-09-06 11:36] VITALS: BP 96/63
[2017-09-06] MEDS ORDERED: MAGNESIUM SULFATE/D5W 100 ML IV SCH (12:15)
[2017-09-06] MEDS ORDERED: POTASSIUM CHLORIDE 20 MEQ TAB.PRT.SR PO ONE (12:15)
--- NOTE | 2017-09-06 15:30 | NUR ---
VOIDING SMALL AMT IN DIAPER BLADDER SCAN OBTAINED IT WAS 695ML RESIDUAL URINE ENC TO VOIDING USE BEDPAN ,SHE VOIDING 550ML OUT AND STATE FEEL BETTER
[2017-09-06] MEDS: Z GUARD REMEDY PASTE 57 GM TUBE TOP PRN (16:48)
--- NOTE | 2017-09-06 17:00 | NUR ---
STABLE HEMODYNAMIC STATUS NO ACUTE DISTRESS PAIN UNDER CONTROL SAFETY MEASURE PROVIDED CALL RODRIGES IN REACH AND BED ALARM ON
--- NOTE | 2017-09-06 19:30 | NUR ---
Received patient laying comfortably in bed. Sleeping at the moment. No acute distress noted. Patient is on RA. Dressing on the left hip C/D/I. DVT on right leg in place. On specialty mattress. Safety initiated. Call light within reach. Will continue to monitor.
[2017-09-06] MEDS: ATORVASTATIN 20 MG TABLET PO SCH (20:12)
[2017-09-07] MEDS: PIPERACILLIN/TAZOBACTAM/D5W 3.375 G in PREMIXED 1 EACH IV SCH ×3 (01:27→17:15)
--- NOTE | 2017-09-07 04:00 | NUR ---
Noticed that patient has not saturated a diaper since midnight. Brought in the bladder scanner, resulted 610 ml of urine retention. Tried to provoke her to urinate by turning on the water, pouring a little water on her perineal area, offered the bed mary all to which did not avail. Straight cath was indicated per MD orders. Tolerated procedure well. Sterile technique was observed. Was able to withdraw 750 ml of urine. Will continue to monitor.
--- NOTE | 2017-09-07 05:48 | NUR ---
Patient slept intermittently t/o shift. No acute distress noted. No changes t/o shift. Vital signs stable. Noted redness under the breast and perineal area, applied Nystatin cream and zguard. Safety and comfort measures maintained t/o shift. DVT pump in place. Turn and reposition Q2H. BMx2. 750 ml of Urine from straight cath. All meds given as ordered. All needs met.
[2017-09-07] MEDS: PANTOPRAZOLE SODIUM 40 MG TABLET.DR PO SCH (06:00)
[2017-09-07] MEDS: LEVOTHYROXINE SODIUM 50 MCG TABLET PO SCH (06:00)
--- NOTE | 2017-09-07 08:00 | NUR ---
AWAKE COOPERATE WELL NO SOB OR PAIN ON ASPIRATION /FALL PRECAUTION BED ALARM ON AND CALL LIGHT IN REACH
[2017-09-07] MEDS: DULOXETINE 20 MG CAPSULE.DR PO SCH (08:41)
[2017-09-07] MEDS: GABAPENTIN 400 MG CAPSULE PO SCH ×3 (08:41→17:15)
[2017-09-07] MEDS: ACIDOPHILUS/BULGARICUS CHEW TAB PO SCH (08:41)
[2017-09-07] MEDS: TAMSULOSIN HCL 0.4 MG CAP.SR.24H PO SCH ×2 (08:41→21:26)
[2017-09-07] MEDS: METOPROLOL TARTRATE 25 MG TABLET PO SCH ×2 (08:42→21:36)
[2017-09-07] MEDS: APIXABAN 5 MG TABLET PO SCH ×2 (08:42→17:15)
[2017-09-07] MEDS: HYDROCORTISONE 10 MG TABLET PO SCH ×2 (08:42→17:15)
[2017-09-07] MEDS: OXYCODONE HCL 5 MG TABLET PO SCH ×3 (08:44→17:16)
[2017-09-07] MEDS: NYSTATIN CREAM 30 GM TUBE TOP SCH ×2 (08:44→21:27)
[2017-09-07] MEDS: Z GUARD REMEDY PASTE 57 GM TUBE TOP PRN (08:44)
[2017-09-07 09:00] VITALS: BP 111/77
[2017-09-07 11:50] VITALS: BP 96/55
--- NOTE | 2017-09-07 12:30 | NUR ---
EAT LUNCH WELL FAMILY AT BEDSIDE NO PAIN OR SOB AT THIS TIME
[2017-09-07 15:46] VITALS: BP 92/52
--- NOTE | 2017-09-07 16:00 | NUR ---
PATIENT VOIDING SMALL AMT BLADDER SCAN PERFORM ONLY 248ML RESIDUAL URINE AND PATIENT FEEL OK NO S/S OF ANY DISCOMFORT DR FONTAINE WAS INFORM
--- NOTE | 2017-09-07 18:00 | NUR ---
STABLE CONDITION NO ACUTE DISTRESS PAIN UNDER CONTROL SAFETY MEASURE PROVIDED CALL LIGHT WITHIN REACH AND BED ALARM ON
--- NOTE | 2017-09-07 19:45 | NUR ---
RECEIVED PATIENT IN BED, AWAKE, BUT FORGETFUL, NO SOB NO CHEST PAIN NOTED, CONT ON PAIN MANAGEMENT, KEPT CLEAN DRY, TURN AND REPOSITION EVERY TWO HOURS. CONT TO MONITOR.
[2017-09-07 20:00] VITALS: BP 100/60
[2017-09-07] MEDS: ATORVASTATIN 20 MG TABLET PO SCH (21:26)
--- NOTE | 2017-09-08 00:30 | NUR ---
PATIENT URINATE VERY LITTLE, ENCOURAGED TO URINE IN BED DUARTE, URINE APPROX 100CC, DID BLADDER SCAN WITH RESIDUAL OF 426 CC, STRAIGHT CATH DONE ABLE TO OBTAINED 400CC OF YELLOW COLOR URINE, CONT TO MONITOR.
[2017-09-08] MEDS: OXYCODONE HCL 5 MG TABLET PO SCH ×4 (00:53→16:34)
[2017-09-08] MEDS: PIPERACILLIN/TAZOBACTAM/D5W 3.375 G in PREMIXED 1 EACH IV SCH ×2 (01:08→09:07)
--- NOTE | 2017-09-08 05:58 | NUR ---
PATIENT SLEPT MOST OF THE NIGHT, CONT TO MONITOR FOR POST VOID RESIDUAL, CONT TO ENCOURAGE TO URINATE VIA BEDPAN, ABLE TO URINE SMALL AMOUNT, ABDOMEN SOFT, CONT ON PAIN MANAGEMENT, TURN AND REPOSITION CALL LIGHT WITHIN REACH.
[2017-09-08] MEDS: LEVOTHYROXINE SODIUM 50 MCG TABLET PO SCH (06:29)
[2017-09-08] MEDS: PANTOPRAZOLE SODIUM 40 MG TABLET.DR PO SCH (06:29)
[2017-09-08 06:31] LABS: BASOPHILS % (AUTO) 0.3 % (0.0-2.0); EOSINOPHILS # (AUTO) 0.1 K/uL (0.0-0.7); EOSINOPHILS % (AUTO) 1.4 % (0.0-7.0); HEMATOCRIT 32.9 % (37-47); HEMOGLOBIN 11.5 G/DL (12.0-16.0); LYMPHOCYTES # (AUTO) 1.1 K/UL (0.8-4.8); LYMPHOCYTES % (AUTO) 17.9 % (20.5-51.5); MEAN CORPUSCULAR HEMOGLOBIN 32.7 UUG (27.0-31.0); MEAN CORPUSCULAR HGB CONC 35 g/dL (32.0-37.0); MEAN CORPUSCULAR VOLUME 93.4 FL (81.0-99.0); MONOCYTES # (AUTO) 0.6 K/UL (0.1-1.30); MONOCYTES % (AUTO) 8.8 % (0.0-11.0); NEUTROPHILS # (AUTO) 4.5 K/UL (1.8-8.9); NEUTROPHILS % (AUTO) 71.6 % (38.5-71.5); PLATELET COUNT (AUTO) 179 K/UL (150-450); RED BLOOD CELL COUNT(AUTO) 3.53 MIL/UL (4.2-5.4); WHITE BLOOD COUNT (AUTO) 6.3 K/UL (4.0-11.2)
[2017-09-08 06:42] VITALS: BP 100/59
[2017-09-08 06:51] LABS: ALANINE AMINOTRANSFERASE 27 U/L (14-59); ALKALINE PHOSPHATASE 47 U/L (50-136); ASPARTATE AMINOTRANSFERASE 19 U/L (15-37); CARBON DIOXIDE 28 mmol/L (21-32); CHLORIDE 106 mmol/L (98-107); CREATININE 0.7 mg/dL (0.6-1.3); GLUCOSE 105 mg/dL (74-106); MAGNESIUM 1.7 mg/dL (1.8-2.4); PHOSPHOROUS 3.9 mg/dL (2.5-4.9); POTASSIUM 3.3 mmol/L (3.5-5.1); UREA NITROGEN, BLOOD 8 mg/dL (7-18)
--- NOTE | 2017-09-08 07:45 | NUR ---
RECEIVED PATIENT ON FIRST STEP MATTRASS ASLEEP AROUSED TO TOUCH ALERT AND VERBALLY RESPONSIVE BUT FORGETFUL TURNED AND REPOSITIONED NOTED INCONTINENT OF BOWEL ASSISTED WITH CLEAN UP BED BATH AND SET UP FOR BREAKFAST.ON ROOM AIR WITH NO SHORTNESS OF BREATH AT THIS TIME.MADE COMFORTABLE.
[2017-09-08] MEDS: DULOXETINE 20 MG CAPSULE.DR PO SCH (08:11)
[2017-09-08] MEDS: ACIDOPHILUS/BULGARICUS CHEW TAB PO SCH (08:11)
[2017-09-08] MEDS: GABAPENTIN 400 MG CAPSULE PO SCH ×3 (08:11→16:33)
[2017-09-08] MEDS: TAMSULOSIN HCL 0.4 MG CAP.SR.24H PO SCH (08:11)
[2017-09-08] MEDS: HYDROCORTISONE 10 MG TABLET PO SCH ×2 (08:13→16:33)
[2017-09-08] MEDS: APIXABAN 5 MG TABLET PO SCH ×2 (08:14→16:33)
[2017-09-08] MEDS: NYSTATIN CREAM 30 GM TUBE TOP SCH (08:15)
[2017-09-08] MEDS: METOPROLOL TARTRATE 25 MG TABLET PO SCH (08:17)
--- NOTE | 2017-09-08 09:01 | NUR ---
SITTING UP ON HER BED READING THE MAGAZINES AFTER EATING BREAKFAST DUE MEDICATIONS GIVEN AND TOLERATED WELL WILL CONTINUE TO OBSERVE PATIENT.
[2017-09-08 11:52] VITALS: BP 106/62
[2017-09-08] MEDS ORDERED: MAGNESIUM SULFATE/D5W 100 ML IV SCH (13:00)
[2017-09-08] MEDS ORDERED: POTASSIUM CHLORIDE 20 MEQ POWDER PACKET PO ONE (13:00)
[2017-09-08] MEDS ORDERED: MAGNESIUM OXIDE 400 MG TABLET PO ONE (13:30)
--- NOTE | 2017-09-08 13:43 | NUR ---
PATIENT SEEN AND EXAMINED BY DR MURPHY MAG IS 1.7 AND POTASSIUM IS 3.3 WITH NEW ORDERS AND NOTED.
[2017-09-08] MEDS ORDERED: DEXAMETHASONE 4 MG PO ONE (14:30)
[2017-09-08] MEDS ORDERED: HYDR10TA PO (14:41)
[2017-09-08] MEDS ORDERED: MENT71OI TOP (14:41)
[2017-09-08] MEDS ORDERED: NYST15CR TOP (14:41)
[2017-09-08] MEDS ORDERED: HYDR-3326 PO (14:41)
[2017-09-08] MEDS ORDERED: BISA10SU61 RC (14:41)
[2017-09-08] MEDS ORDERED: ATOR10TA PO (14:41)
[2017-09-08] MEDS ORDERED: OXYC10TA49 PO (14:41)
[2017-09-08] MEDS ORDERED: MULT1TAB73 PO (14:41)
[2017-09-08] MEDS ORDERED: CRAN450T9 PO (14:41)
--- NOTE | 2017-09-08 15:15 | NUR ---
CALLED DENISHA HOLLAND AND REPORT GIVEN TO CHRISTINE FOR CONTINUING CARE PATIENT WAS STRAIGHT CATH AT [address] FONTAINE WAS NOTIFIED AND HE STATED TO DO BLADDER SCANNER Q8H AND IF RESIDUAL IS MORE THAN 350 THE STRAIGHT CATH PRN AND HE EXPRESSED UNDERSTANDING.
[2017-09-08 15:26] VITALS: BP 104/63
[2017-09-08] MEDS ORDERED: DEXAMETHASONE 4 MG PO SCH (17:00)
[2017-09-08] MEDS ORDERED: DEXAMETHASONE 4 MG TABLET PO SCH ×2 (17:00→21:45)
--- NOTE | 2017-09-08 17:05 | NUR ---
PATIENT DISCHARGED PICKED UP BY [facility] IN SATISFACTORY CONDITION WITH DISCHARGE INSTRUCTIONS WITH ALL HER PERSONAL BELONGINGS PATIENTS HERE AND FOLLOWING THEM.ALL HER 1700 MEDICATIONS WAS GIVEN.PATIENTS DECADRON WAS ALREADY GIVEN PER DR HILL.
== END 2017-09-08 17:05 | DRG 871 ==
LOC: MED 17:23
PROVIDERS: ADMIT Internal Medicine; ATTEND Internal Medicine
DX: A41.9 Sepsis, unspecified organism (principal); J69.0 Pneumonitis due to inhalation of food and vomit; E43 Unspecified severe protein-calorie malnutrition; I50.33 Acute on chronic diastolic (congestive) heart failure; G92 Toxic encephalopathy; I48.2 Chronic atrial fibrillation; C90.00 Multiple myeloma not having achieved remission; I48.92 Unspecified atrial flutter; I82.412 Acute embolism and thrombosis of left femoral vein; I31.3 Pericardial effusion (noninflammatory); M84.48XA Pathological fracture, other site, initial encounter for fracture; E83.42 Hypomagnesemia; M48.05 Spinal stenosis, thoracolumbar region; E03.9 Hypothyroidism, unspecified; E87.6 Hypokalemia; E66.9 Obesity, unspecified; G89.4 Chronic pain syndrome; M81.0 Age-related osteoporosis without current pathological fracture; M54.10 Radiculopathy, site unspecified; Z79.01 Long term (current) use of anticoagulants; Z86.711 Personal history of pulmonary embolism; Z87.01 Personal history of pneumonia (recurrent); I11.0 Hypertensive heart disease with heart failure; Z68.33 Body mass index [BMI] 33.0-33.9, adult; G90.8 Other disorders of autonomic nervous system; T40.605A Adverse effect of unspecified narcotics, initial encounter; Y92.129 Unspecified place in nursing home as the place of occurrence of the external cause; M54.30 Sciatica, unspecified side; Z98.890 Other specified postprocedural states; T40.2X5A Adverse effect of other opioids, initial encounter
CPT/HCPCS: 36415; 70030-TC; 70450; 71010; 83735; 84100; 85025; 87086; 97110; 97530; A4663; C1758; J1940; J2543; J3475; J7040; J7050

== ENCOUNTER 2017-10-20 11:07 | Inpatient (IN) | payer MEDICARE, OTHER ==
[~2017-10-20] VITALS: Ht 162.6 cm; Wt 87.1 kg
[~2017-10-20 11:07] MED LIST changes: +ACID1TAB4 PO; -APIX2.5T PO; +ATOR10TA PO; -ATOR20TA PO; +BISA10SU61 RC; +CRAN450T9 PO; +DEXA4TAB PO; +DRON2.5C3 PO; -GABA-532 PO; +GABA-536 PO; +HYDR-3326 PO; +HYDR10TA PO; -LANS30CA56 PO; +LENA10CA PO; +MENT71OI TOP; -METO-302 PO; +METO25TA6 PO; -METO75TA PO; +MIDO2.5T PO; +MULT1TAB73 PO; +NYST15CR TOP; +OXYC10TA49 PO; +PANT40TA2 PO; -TRAM50TA2 PO
[2017-10-20] MEDS ORDERED: IV NS 1000 ML 1,000 ML IV ONE (11:45)
--- NOTE | 2017-10-20 11:58 | NUR ---
PT IS IN ROOM #1A. DR MATSON EVALUATED THE PT.
[2017-10-20 12:04] LABS: BASOPHILS % (AUTO) 0.7 % (0.0-2.0); EOSINOPHILS # (AUTO) 0.1 K/uL (0.0-0.7); HEMATOCRIT 45.3 % (31.2-41.9); HEMOGLOBIN 15.5 g/dL (10.9-14.3); LYMPHOCYTES # (AUTO) 1.2 K/uL (20.0-40.0); LYMPHOCYTES % (AUTO) 17.9 % (20.5-51.5); MEAN CORPUSCULAR HEMOGLOBIN 31.1 uug (24.7-32.8); MEAN CORPUSCULAR HGB CONC 34 g/dL (32.3-35.6); MEAN CORPUSCULAR VOLUME 91.2 fL (75.5-95.3); MONOCYTES # (AUTO) 0.6 K/uL (2.0-10.0); MONOCYTES % (AUTO) 8.8 % (0.0-11.0); NEUTROPHILS # (AUTO) 4.9 K/uL (1.8-8.9); NEUTROPHILS % (AUTO) 70.6 % (38.5-71.5); PLATELET COUNT (AUTO) 193 K/uL (179-408); RED BLOOD CELL COUNT(AUTO) 4.97 MIL/uL (3.63-4.92); WHITE BLOOD COUNT (AUTO) 6.9 K/uL (3.8-11.8)
[2017-10-20 12:17] LABS: CARBON DIOXIDE 28 mmol/L (21-32); CHLORIDE 104 mmol/L (98-107); CREATININE 0.8 mg/dL (0.6-1.3); GLUCOSE 106 mg/dL (74-106); POTASSIUM 3.5 mmol/L (3.5-5.1); UREA NITROGEN, BLOOD 8 mg/dL (7-18)
[2017-10-20] MEDS ORDERED: NA P133E RC (12:18)
[2017-10-20] MEDS ORDERED: ALPR0.5T8 PO (12:18)
[2017-10-20] MEDS ORDERED: ASCO-375 PO (12:18)
[2017-10-20] MEDS ORDERED: FURO20TA4 PO (12:18)
[2017-10-20] MEDS ORDERED: METF500T4 PO (12:18)
[2017-10-20] MEDS ORDERED: CALC-883 PO (12:18)
[2017-10-20] MEDS ORDERED: ZINC220C8 PO (12:18)
[2017-10-20] MEDS ORDERED: AMIN30LI27 PO (12:18)
[2017-10-20] MEDS ORDERED: CRAN425C6 PO (12:18)
[2017-10-20] MEDS ORDERED: BLOO-140 IN (12:18)
[2017-10-20] MEDS ORDERED: GUAI5SYR PO (12:18)
[2017-10-20] MEDS ORDERED: APIX5TAB PO (12:18)
[2017-10-20] MEDS ORDERED: MAGN400O6 PO (12:18)
[2017-10-20] MEDS ORDERED: DULO40CA2 PO (12:18)
[2017-10-20] MEDS ORDERED: MAG30ORA PO (12:18)
[2017-10-20] MEDS ORDERED: POTA20TA83 PO (12:18)
[2017-10-20] MEDS ORDERED: ONDA4TAB8 PO (12:18)
[2017-10-20] MEDS ORDERED: CHOL100043 PO (12:18)
[2017-10-20] MEDS ORDERED: IPRA3AMP IH (12:18)
[2017-10-20] MEDS ORDERED: AMOX1TAB49 PO (12:18)
[2017-10-20] MEDS ORDERED: OXYC10TA49 PO (12:18)
[2017-10-20] MEDS ORDERED: DILTIAZEM HCL IV ONE (12:30)
[2017-10-20] MEDS ORDERED: DEXTROSE 5% IV ONE (12:30)
[2017-10-20] MEDS ORDERED: IV NORMAL SALINE 1000 ML BAG IV ONE (12:30)
[2017-10-20 12:33] LABS: ALANINE AMINOTRANSFERASE 26 U/L (14-59); ALKALINE PHOSPHATASE 56 U/L (50-136); ASPARTATE AMINOTRANSFERASE 23 U/L (15-37); BILIRUBIN,DIRECT 0.2 mg/dL (0.0-0.2); BILIRUBIN,TOTAL 0.5 mg/dL (0.2-1.0); TOTAL PROTEIN, SERUM 5.8 g/dL (6.4-8.2)
[2017-10-20] MEDS ORDERED: DILTIAZEM HCL 25 MG IV IV ONE ×3 (12:45→15:30)
[2017-10-20] MEDS ORDERED: DILTIAZEM HCL 25 MG IV ONE ×2 (12:55→14:41)
[2017-10-20] MEDS ORDERED: AZITHROMYCIN IV 500 MG in IV DEXTROSE 5% 250 ML IV ONE (13:30)
[2017-10-20] MEDS ORDERED: PIPERACILLIN/TAZOBACTAM/D5W 0 ML IV ONE (13:39)
[2017-10-20] MEDS ORDERED: AZITHROMYCIN 500 MG VIAL IV ONE (13:44)
[2017-10-20] MEDS ORDERED: ONDANSETRON 4 MG/2 ML VIAL IV ONE (14:15)
[2017-10-20] MEDS ORDERED: ONDANSETRON 4 MG/2 ML VIAL ONE (14:22)
[2017-10-20 15:01] LABS: *BILIRUBIN,URIN NEGATIVE (NEGATIVE); *BLOOD, URINE Trace-intact (NEGATIVE); *CLARITY,URINE SLIGHTLY CLOUDY (CLEAR); *COLOR,URINE YELLOW (YELLOW); *KETONES,URINE 1+ (NEGATIVE); *PROTEIN,URINE 1+ (NEGATIVE); *UROBILINOGEN,URINE 0.2 E.U./dl (NORMAL); LEUKOCYTE ESTERASE ,URINE 2+ (NEGATIVE); NITRITE, URINE NEGATIVE (NEGATIVE); UGLUCOSE NEGATIVE (NEGATIVE)
[2017-10-20 15:09] LABS: BACTERIA,URINE FEW /HPF (NONE SEEN); RBC,URINE 0-3 /HPF (0-3); WBC,URINE 50-80 /HPF (0-3)
[2017-10-20 15:10] LABS: SQUAMOUS EPITHELIAL CELL,UR FEW /HPF (NONE SEEN)
[2017-10-20] MEDS ORDERED: IMIPENEM/CILASTATIN SODIUM 1,000 MG in IV NORMAL SALINE 250 ML IV ONE (15:45)
[2017-10-20] MEDS ORDERED: MEROPENEM 1,000 MG in IV NORMAL SALINE 250 ML IV ONE (16:00)
[2017-10-20] MEDS ORDERED: MEROPENEM 1 G VIAL IV ONE (16:16)
--- NOTE | 2017-10-20 16:50 | NUR ---
REPORT GIVEN TO ADOBE CQ DEVELOPER. PT WAS TRANSFERED TO ROOM #1 CCU.
[2017-10-20 17:30] VITALS: BP 140/85
[2017-10-20] MEDS ORDERED: Z GUARD REMEDY PASTE 57 GM TUBE TOP PRN (18:15)
[2017-10-20] MEDS ORDERED: ACETAMINOPHEN 325 MG TABLET PO PRN (18:15)
[2017-10-20] MEDS ORDERED: SENNOSIDES 1 TABLET PO PRN (18:15)
[2017-10-20] MEDS ORDERED: DILTIAZEM HCL 25 MG IV IV PRN (18:15)
[2017-10-20] MEDS ORDERED: ALPRAZOLAM 0.5 MG TABLET PO PRN (18:15)
[2017-10-20] MEDS ORDERED: FUROSEMIDE 40 MG/4 ML VIAL IV ONE (18:15)
[2017-10-20] MEDS ORDERED: HYDROCODONE/APAP 5-325MG TABLET PO PRN (18:15)
[2017-10-20] MEDS ORDERED: BISACODYL 10 MG SUPP.RECT RC PRN (18:15)
--- NOTE | 2017-10-20 18:35 | NUR ---
PER DR CASTRO PUT IN ORDER FOR WOMACK CATHETER, PT CAME WITH WOMACK INSERTED. DR CASTRO IS AWARE
[2017-10-20 19:00] VITALS: BP 146/89
[2017-10-20] MEDS ORDERED: APIXABAN 5 MG TABLET PO ONE (19:00)
--- NOTE | 2017-10-20 19:00 | NUR ---
PT IS LAYING IN BED COMFORTABLY. NO S/S OF RESPIRATORY DISTRESS NOTED, PT IS ON ROOM AIR. NO PAIN NOTED. ALL SAFETY NEEDS ARE MET. IV INTACT/PATENT. PT CAME FROM ER WITH SADA WOMACK PHARMACIST THAT ELIQUIS WILL BE GIVEN LATER SINCE THE MEDS WHERE GIVEN BY FAMILY LATER IN A SHIFT.
[2017-10-20 20:00] VITALS: BP 139/85
--- NOTE | 2017-10-20 20:00 | NUR ---
Placed on contact isolation. Per transfer report from [facility], patient was on isolation for ESBL in urine.
[2017-10-20] MEDS: ATORVASTATIN 10 MG TABLET PO SCH (20:22)
[2017-10-20] MEDS: METOPROLOL TARTRATE 25 MG TABLET PO SCH (20:24)
[2017-10-20] MEDS: OXYCODONE HCL 10 MG TAB.SR.12H PO SCH (20:29)
[2017-10-20 21:00] VITALS: BP 109/69
[2017-10-20 22:00] VITALS: BP 123/84
[2017-10-20] MEDS ORDERED: MEROPENEM 1 G in IV NORMAL SALINE 100 ML IV SCH (22:00)
[2017-10-20 23:00] VITALS: BP 125/65
--- NOTE | 2017-10-20 23:00 | NUR ---
Spoke with daughter, Brenda , regarding Eliquis dosage. She states that patient's current dose is 2.5 mg BID PO. Clarified with Dr. Hammond. okay to cancel one time dose of 5mg Eliquis and begin patient's regular regimen of 2.5 mg BID PO starting now. Administered 1 tab of Eliquis 2.5mg (Patient's own med) dispensed by pharmacy. Unable to scan med. Verified right patient, med, dose, frequency, and route prior to administration.
[2017-10-20] MEDS: ELIQUIS 2.5 MG TABLET PO SCH (23:24)
[2017-10-21] VITALS (9 sets, daily range): BP systolic 99–146; BP diastolic 68–105
[2017-10-21] MEDS: MEROPENEM 1 G in IV NORMAL SALINE 100 ML IV SCH ×3 (03:40→21:20)
[2017-10-21 05:17] LABS: BASOPHILS % (AUTO) 0.5 % (0.0-2.0); EOSINOPHILS # (AUTO) 0.1 K/uL (0.0-0.7); EOSINOPHILS % (AUTO) 2.1 % (0.0-7.0); HEMATOCRIT 43.8 % (31.2-41.9); HEMOGLOBIN 14.9 g/dL (10.9-14.3); LYMPHOCYTES # (AUTO) 1.2 K/uL (20.0-40.0); LYMPHOCYTES % (AUTO) 22.4 % (20.5-51.5); MEAN CORPUSCULAR HEMOGLOBIN 30.7 uug (24.7-32.8); MEAN CORPUSCULAR HGB CONC 34 g/dL (32.3-35.6); MEAN CORPUSCULAR VOLUME 90.5 fL (75.5-95.3); MONOCYTES # (AUTO) 0.6 K/uL (2.0-10.0); MONOCYTES % (AUTO) 10.9 % (0.0-11.0); NEUTROPHILS # (AUTO) 3.6 K/uL (1.8-8.9); NEUTROPHILS % (AUTO) 64.1 % (38.5-71.5); PLATELET COUNT (AUTO) 181 K/uL (179-408); RED BLOOD CELL COUNT(AUTO) 4.85 MIL/uL (3.63-4.92); WHITE BLOOD COUNT (AUTO) 5.6 K/uL (3.8-11.8)
[2017-10-21 05:39] LABS: ALANINE AMINOTRANSFERASE 22 U/L (14-59); ALKALINE PHOSPHATASE 55 U/L (50-136); ASPARTATE AMINOTRANSFERASE 23 U/L (15-37); BILIRUBIN,TOTAL 0.4 mg/dL (0.2-1.0); CARBON DIOXIDE 29 mmol/L (21-32); CHLORIDE 103 mmol/L (98-107); CHOLESTEROL 141 mg/dL (<200); CREATININE 0.6 mg/dL (0.6-1.3); GLUCOSE 109 mg/dL (74-106); HDL CHOLESTEROL 42 mg/dL (40-60); PHOSPHOROUS 2.7 mg/dL (2.5-4.9); POTASSIUM 2.9 mmol/L (3.5-5.1); TOTAL PROTEIN, SERUM 5.8 g/dL (6.4-8.2); TRIGLYCERIDES 69 MG/DL (30-150); UREA NITROGEN, BLOOD 6 mg/dL (7-18)
[2017-10-21 05:50] LABS: MAGNESIUM 1.2 mg/dL (1.8-2.4)
[2017-10-21] MEDS: DRONABINOL 2.5 MG CAPSULE PO SCH (08:32)
[2017-10-21] MEDS: ACIDOPHILUS/BULGARICUS CHEW TAB PO SCH (08:32)
[2017-10-21] MEDS: LEVOTHYROXINE SODIUM 50 MCG TABLET PO SCH (08:32)
[2017-10-21] MEDS: DULOXETINE 20 MG CAPSULE.DR PO SCH (08:33)
[2017-10-21] MEDS: OXYCODONE HCL 10 MG TAB.SR.12H PO SCH ×3 (08:33→21:19)
[2017-10-21] MEDS: METOPROLOL TARTRATE 25 MG TABLET PO SCH ×3 (08:34→21:19)
[2017-10-21] MEDS: POTASSIUM CHLORIDE 20 MEQ TAB.PRT.SR PO SCH ×2 (08:35→11:55)
[2017-10-21] MEDS: GABAPENTIN 400 MG CAPSULE PO SCH ×3 (08:36→17:36)
[2017-10-21] MEDS: HYDROCORTISONE 10 MG TABLET PO SCH (08:37)
[2017-10-21] MEDS ORDERED: DULOXETINE HCL 40 MG PO SCH (09:00)
[2017-10-21] MEDS ORDERED: FUROSEMIDE 20 MG TABLET PO SCH (09:00)
[2017-10-21] MEDS ORDERED: APIXABAN 5 MG TABLET PO SCH (09:00)
[2017-10-21] MEDS ORDERED: APIXABAN 2.5 MG PO SCH (09:00)
[2017-10-21] MEDS: ELIQUIS 2.5 MG TABLET PO SCH ×2 (09:19→17:36)
[2017-10-21] MEDS: CHOLECALCIFEROL 1,000 UNIT TABLET PO SCH (09:28)
[2017-10-21] MEDS ORDERED: POTASSIUM CHLORIDE 20 MEQ TAB.PRT.SR PO ONE (09:30)
--- NOTE | 2017-10-21 11:45 | NUR ---
Attending physician informed of low urine output. See orders.
[2017-10-21] MEDS: MAGNESIUM SULFATE/D5W 100 ML IV SCH ×3 (11:55→15:26)
--- NOTE | 2017-10-21 12:10 | NUR ---
At this time mai catheter irrigated, and balloon reinflated, also bladder scanner use to check residual. Bladder scan results were 00ml x 2. Results informed to attending physician.
[2017-10-21] MEDS: DILTIAZEM HCL CD 120 MG CAP.SR.24H PO SCH (12:34)
--- NOTE | 2017-10-21 14:00 | NUR ---
Pt's family at bedside.
--- NOTE | 2017-10-21 16:00 | NUR ---
mai catheter replaced as orders urine output still low, attending physician notified.
--- NOTE | 2017-10-21 20:08 | NUR ---
Patient resting comfortably in bed. A/Ox2, lethargic but easily arousable. Controlled A-fib at this time with stable BP. Noted sleep apnea with occasional desaturation. Placed on 2L supplemental oxygen via nasal cannula, SpO2 now corrected. fe [place]. Call light within reach. SBAR received from Harpreet Johnson RN. Will continue plan of care. Addendum: 10/21/17 at 2147 by CHATO VILLAFUERTE RN SBAR from Eriberto Jay RN Addendum: 10/21/17 at 2155 by CHATO VILLAFUERTE RN Disoriented.
[2017-10-21] MEDS: ATORVASTATIN 10 MG TABLET PO SCH ×2 (21:00→21:20)
--- NOTE | 2017-10-21 21:00 | NUR ---
Dr Bronson at bedside for assessment and update.
--- NOTE | 2017-10-21 21:47 | NUR ---
Held PO medications due at 2100. Patient is too lethargic and unable to swallow at this time. Will continue to monitor.
--- NOTE | 2017-10-21 22:30 | NUR ---
Notified Dr. Bronson of patient's increased lethargy in comparison to last night. Continue to assess, orders received.
[2017-10-22] VITALS: BP 113/67
[2017-10-22 04:00] VITALS: BP 111/74
--- NOTE | 2017-10-22 04:00 | NUR ---
Patient is now awake, alert, oriented x1.
[2017-10-22 05:22] LABS: ALANINE AMINOTRANSFERASE 21 U/L (14-59); ALKALINE PHOSPHATASE 52 U/L (50-136); ASPARTATE AMINOTRANSFERASE 28 U/L (15-37); BASOPHILS % (AUTO) 0.3 % (0.0-2.0); BILIRUBIN,TOTAL 0.4 mg/dL (0.2-1.0); CARBON DIOXIDE 29 mmol/L (21-32); CHLORIDE 105 mmol/L (98-107); CREATININE 0.6 mg/dL (0.6-1.3); EOSINOPHILS # (AUTO) 0.1 K/uL (0.0-0.7); EOSINOPHILS % (AUTO) 2.6 % (0.0-7.0); GLUCOSE 102 mg/dL (74-106); HEMATOCRIT 42.4 % (31.2-41.9); HEMOGLOBIN 14.3 g/dL (10.9-14.3); LYMPHOCYTES # (AUTO) 1.5 K/uL (20.0-40.0); LYMPHOCYTES % (AUTO) 31.6 % (20.5-51.5); MAGNESIUM 1.8 mg/dL (1.8-2.4); MEAN CORPUSCULAR HEMOGLOBIN 30.7 uug (24.7-32.8); MEAN CORPUSCULAR HGB CONC 34 g/dL (32.3-35.6); MEAN CORPUSCULAR VOLUME 90.7 fL (75.5-95.3); MONOCYTES # (AUTO) 0.6 K/uL (2.0-10.0); MONOCYTES % (AUTO) 12.4 % (0.0-11.0); NEUTROPHILS # (AUTO) 2.6 K/uL (1.8-8.9); NEUTROPHILS % (AUTO) 53.1 % (38.5-71.5); PHOSPHOROUS 2.4 mg/dL (2.5-4.9); PLATELET COUNT (AUTO) 166 K/uL (179-408); POTASSIUM 3.3 mmol/L (3.5-5.1); RED BLOOD CELL COUNT(AUTO) 4.67 MIL/uL (3.63-4.92); TOTAL PROTEIN, SERUM 5.5 g/dL (6.4-8.2); UREA NITROGEN, BLOOD 7 mg/dL (7-18); WHITE BLOOD COUNT (AUTO) 4.9 K/uL (3.8-11.8)
[2017-10-22] MEDS: LEVOTHYROXINE SODIUM 50 MCG TABLET PO SCH (07:00)
[2017-10-22 08:00] VITALS: BP 127/77
[2017-10-22] MEDS: DULOXETINE 20 MG CAPSULE.DR PO SCH (08:19)
[2017-10-22] MEDS: DILTIAZEM HCL CD 120 MG CAP.SR.24H PO SCH (08:20)
[2017-10-22] MEDS: ACIDOPHILUS/BULGARICUS CHEW TAB PO SCH (08:20)
[2017-10-22] MEDS: DRONABINOL 2.5 MG CAPSULE PO SCH (08:20)
[2017-10-22] MEDS: METOPROLOL TARTRATE 25 MG TABLET PO SCH ×2 (08:21→20:25)
[2017-10-22] MEDS: GABAPENTIN 400 MG CAPSULE PO SCH ×3 (08:22→16:49)
[2017-10-22] MEDS: HYDROCORTISONE 10 MG TABLET PO SCH (08:22)
[2017-10-22] MEDS: ELIQUIS 2.5 MG TABLET PO SCH ×2 (08:22→16:49)
[2017-10-22] MEDS: CHOLECALCIFEROL 1,000 UNIT TABLET PO SCH (08:23)
[2017-10-22] MEDS: MEROPENEM 1 G in IV NORMAL SALINE 100 ML IV SCH (08:26)
[2017-10-22] MEDS: OXYCODONE HCL 10 MG TAB.SR.12H PO SCH ×2 (08:27→20:24)
[2017-10-22 09:18] LABS: ABG BASE EXCESS 2.9 mmol/L; ABG HCO3 26.5 mmol/L; ABG PCO2 37.5 mmHg (35.0-45.0); ABG PH 7.467 (7.350-7.450); ABG PO2 69.8 mmHg (75.0-100.0); ABG SITE RIGHT RADIAL; ABG TOTAL HEMOGLOBIN 14.7 G/dL (12.0-16.0); COHb 1.5 % (0.5-1.5); MetHb 0.4 % (0.0-1.5); O2Hb 93.2 % (94.0-97.0); VENT MODE Room Air
--- NOTE | 2017-10-22 10:45 | NUR ---
DR. Velasquez pulmonary services in the unit to examine patient; report given. After examining patient and reviewing resulted ABG's orders to stop propofol and versed received. And prepare patient patient for extubation. At this time called at message left awaiting call back. Addendum: 10/22/17 at 1055 by BRANDON DALAL RN the above note intended for CCU 4.
--- NOTE | 2017-10-22 10:53 | NUR ---
RT Luu informed of plan of care.
--- NOTE | 2017-10-22 11:30 | NUR ---
Attending physician informed of pt's low urine output.
[2017-10-22 12:00] VITALS: BP 101/58
[2017-10-22] MEDS: POTASSIUM PHOSPHATE MM 7.5 MMOL in IV DEXTROSE 5% 100 ML IV SCH ×2 (13:47→16:48)
[2017-10-22] MEDS: FLUCONAZOLE 200 MG/NS 100ML IV 100 MG in PREMIXED 1 EACH IV SCH (13:47)
--- NOTE | 2017-10-22 14:00 | NUR ---
Dr. Butler in the unit to have a meeting with pt's daughter. at bedside updating both pt's daughter and pt's .
[2017-10-22 16:00] VITALS: BP 109/63
[2017-10-22 20:00] VITALS: BP 98/70
--- NOTE | 2017-10-22 20:00 | NUR ---
RECEIVED PT. AWAKE, VERBALLY RESPONSIVE W/ PERIODS OF CONFUSION & DIS ORIENTATION. ON RM AIR , W/ O2 SAT OF 93%. NS @ 5CC/HR ON TD MIDLINE. REPOSITIONED IN BED W/ HOB ELEVATED. NOT IN ANY DISTRESS.
[2017-10-22] MEDS: NYSTATIN SUSPENSION 5 ML LIQUID UDC PO SCH ×2 (20:15→20:26)
[2017-10-22] MEDS: ATORVASTATIN 10 MG TABLET PO SCH (20:22)
[2017-10-22] MEDS ORDERED: ALBUTEROL SULFATE 2.5 MG/3 ML NEBU NEB PRN (21:00)
--- NOTE | 2017-10-22 21:00 | NUR ---
PRODUCTIVE COUGH NOTED,CALLED DR FONTAINE FOR BREATHING TX. W/ ORDER.
--- NOTE | 2017-10-22 21:42 | NUR ---
HHN TX GIVEN BY RT MORAES ORDERED.
--- NOTE | 2017-10-22 22:30 | NUR ---
HS CARE DONE. REPOSITIONED SELF FOR COMFORTS. NOT IN ANY DISTRESS.
[2017-10-22] MEDS ORDERED: IV NORMAL SALINE 250 ML IV PRN (23:15)
[2017-10-23] VITALS: BP 96/69
--- NOTE | 2017-10-23 02:00 | NUR ---
SLEEPING WELL. V/S STABLE. O2 SAT ADEQ. ON O2 @ 2LNC.
[2017-10-23 04:00] VITALS: BP 106/67
--- NOTE | 2017-10-23 05:00 | NUR ---
REMAINS ASLEEP. V/S STABLE. NOT IN ANY DISTRESS.
[2017-10-23 05:10] LABS: BASOPHILS % (AUTO) 0.7 % (0.0-2.0); EOSINOPHILS # (AUTO) 0.1 K/uL (0.0-0.7); EOSINOPHILS % (AUTO) 1.5 % (0.0-7.0); HEMATOCRIT 40.3 % (31.2-41.9); HEMOGLOBIN 13.7 g/dL (10.9-14.3); LYMPHOCYTES # (AUTO) 2.2 K/uL (20.0-40.0); LYMPHOCYTES % (AUTO) 37.4 % (20.5-51.5); MEAN CORPUSCULAR HEMOGLOBIN 30.9 uug (24.7-32.8); MEAN CORPUSCULAR HGB CONC 34 g/dL (32.3-35.6); MEAN CORPUSCULAR VOLUME 90.7 fL (75.5-95.3); MONOCYTES # (AUTO) 0.5 K/uL (2.0-10.0); MONOCYTES % (AUTO) 8.8 % (0.0-11.0); NEUTROPHILS % (AUTO) 51.6 % (38.5-71.5); PLATELET COUNT (AUTO) 179 K/uL (179-408); RED BLOOD CELL COUNT(AUTO) 4.45 MIL/uL (3.63-4.92); WHITE BLOOD COUNT (AUTO) 5.8 K/uL (3.8-11.8)
[2017-10-23 05:41] LABS: CARBON DIOXIDE 31 mmol/L (21-32); CHLORIDE 107 mmol/L (98-107); CREATININE 0.6 mg/dL (0.6-1.3); GLUCOSE 103 mg/dL (74-106); MAGNESIUM 1.6 mg/dL (1.8-2.4); PHOSPHOROUS 3.2 mg/dL (2.5-4.9); POTASSIUM 3.5 mmol/L (3.5-5.1); UREA NITROGEN, BLOOD 9 mg/dL (7-18)
[2017-10-23] MEDS: LEVOTHYROXINE SODIUM 50 MCG TABLET PO SCH (06:19)
[2017-10-23 08:00] VITALS: BP 120/75
[2017-10-23] MEDS: DULOXETINE 20 MG CAPSULE.DR PO SCH (09:17)
[2017-10-23] MEDS: ACIDOPHILUS/BULGARICUS CHEW TAB PO SCH ×2 (09:17→16:31)
[2017-10-23] MEDS: GABAPENTIN 400 MG CAPSULE PO SCH ×3 (09:18→16:31)
[2017-10-23] MEDS: NYSTATIN SUSPENSION 5 ML LIQUID UDC PO SCH ×4 (09:18→20:07)
[2017-10-23] MEDS: POTASSIUM CHLORIDE 20 MEQ TAB.PRT.SR PO SCH (09:18)
[2017-10-23] MEDS: DRONABINOL 2.5 MG CAPSULE PO SCH (09:20)
[2017-10-23] MEDS: DILTIAZEM HCL CD 120 MG CAP.SR.24H PO SCH (09:20)
[2017-10-23] MEDS: OXYCODONE HCL 10 MG TAB.SR.12H PO SCH ×2 (09:20→20:07)
[2017-10-23] MEDS: ELIQUIS 2.5 MG TABLET PO SCH ×2 (09:21→16:31)
[2017-10-23] MEDS: HYDROCORTISONE 10 MG TABLET PO SCH (09:21)
[2017-10-23] MEDS: METOPROLOL TARTRATE 25 MG TABLET PO SCH ×2 (09:21→20:08)
[2017-10-23] MEDS: CHOLECALCIFEROL 1,000 UNIT TABLET PO SCH (09:21)
[2017-10-23] MEDS ORDERED: POTASSIUM CHLORIDE 20 MEQ TAB.PRT.SR PO ONE (10:45)
[2017-10-23] MEDS ORDERED: MAGNESIUM SULFATE/D5W 100 ML IV SCH (10:45)
[2017-10-23] MEDS: FLUCONAZOLE 200 MG/NS 100ML IV 100 MG in PREMIXED 1 EACH IV SCH (13:13)
[2017-10-23 16:00] VITALS: BP 117/83
--- NOTE | 2017-10-23 16:15 | NUR ---
DR CONLEY CAME TO ASSESS THE PT, FULL PT REPORT IS GIVEN
--- NOTE | 2017-10-23 16:25 | NUR ---
PER DR CONLEY PUT ORDER FOR NS IVF AT 60 ML/HR Addendum: 10/23/17 at 1831 by YUDY LAMAR RN DR CONLEY IS AWARE ABOUT PT'S DARK IN COLOR URINE AND LOW URINE OUTPUT
[2017-10-23] MEDS: IV NS 1000 ML 1,000 ML IV PRN (16:59)
--- NOTE | 2017-10-23 18:30 | NUR ---
PT REPORT IS GIVEN, PT TRANSFERRED TO TELEMETRY FLOOR. WOMACK IS INTACT/DRAINING. PT'S IS BY THE BEDSIDE. IV/MIDLINE IS INTACT/PATENT. ALL SAFETY NEEDS ARE MET. NO S/S OF RESPIRATORY DISTRESS NOTED, NO PAIN NOTED. PT TRANSFERRED VIA WHEELCHAIR.
[2017-10-23] MEDS: ATORVASTATIN 10 MG TABLET PO SCH (20:08)
[2017-10-23] MEDS: MAGNESIUM OXIDE 400 MG TABLET PO SCH (20:08)
--- NOTE | 2017-10-23 20:09 | NUR ---
Received patient in bed, w/ family in room. No SOB noted denies chest pain. Tele shows A-fib controlled. Routine night meds administered, patient tolerated. Repositioned in bed, kept comfortable.
[2017-10-23 20:40] VITALS: BP 127/73
[2017-10-24 00:20] VITALS: BP 103/64
[2017-10-24 04:37] VITALS: BP 99/69
[2017-10-24] MEDS: LEVOTHYROXINE SODIUM 50 MCG TABLET PO SCH (06:02)
--- NOTE | 2017-10-24 07:20 | NUR ---
RECEIVED REPORT FROM PASTE UP COPY CAMERA OPERATOR NURSE, PATIENT IN BED ASLEEP, NO EVIDENCE OF DISTRESS NOTED AT THIS TIME, BED IN LOW POSITION, SIDE RAILS UP X2.
--- NOTE | 2017-10-24 09:00 | NUR ---
OBSERVED URINARY CATHETER TO HAVE BLOOD IN THE URINE. REPORTING TO DR. FONTAINE.
[2017-10-24] MEDS: DRONABINOL 2.5 MG CAPSULE PO SCH (09:16)
[2017-10-24] MEDS: NYSTATIN SUSPENSION 5 ML LIQUID UDC PO SCH ×4 (09:16→20:57)
[2017-10-24] MEDS: POTASSIUM CHLORIDE 20 MEQ TAB.PRT.SR PO SCH (09:17)
[2017-10-24] MEDS: METOPROLOL TARTRATE 25 MG TABLET PO SCH (09:17)
[2017-10-24] MEDS: GABAPENTIN 400 MG CAPSULE PO SCH ×3 (09:18→17:38)
[2017-10-24] MEDS: OXYCODONE HCL 10 MG TAB.SR.12H PO SCH ×2 (09:19→20:58)
[2017-10-24] MEDS: CHOLECALCIFEROL 1,000 UNIT TABLET PO SCH (09:21)
[2017-10-24] MEDS: DULOXETINE 20 MG CAPSULE.DR PO SCH (09:21)
[2017-10-24] MEDS: ACIDOPHILUS/BULGARICUS CHEW TAB PO SCH ×2 (09:22→17:38)
[2017-10-24] MEDS: DILTIAZEM HCL CD 120 MG CAP.SR.24H PO SCH (09:22)
[2017-10-24] MEDS: ELIQUIS 2.5 MG TABLET PO SCH (09:43)
[2017-10-24] MEDS: HYDROCORTISONE 10 MG TABLET PO SCH (09:43)
[2017-10-24 11:02] VITALS: BP 100/70
[2017-10-24] MEDS: MAGNESIUM SULFATE/D5W 100 ML IV SCH ×2 (13:00→13:11)
[2017-10-24 14:53] VITALS: BP 110/70
[2017-10-24] MEDS: FLUCONAZOLE 200 MG/NS 100ML IV 100 MG in PREMIXED 1 EACH IV SCH (15:38)
[2017-10-24 19:00] VITALS: BP 104/59
[2017-10-24] MEDS: MAGNESIUM OXIDE 400 MG TABLET PO SCH (20:58)
[2017-10-24] MEDS: ATORVASTATIN 10 MG TABLET PO SCH (20:58)
[2017-10-25 04:00] VITALS: BP 132/84
[2017-10-25] MEDS: LEVOTHYROXINE SODIUM 50 MCG TABLET PO SCH (05:29)
[2017-10-25 06:44] LABS: BASOPHILS % (AUTO) 0.4 % (0.0-2.0); EOSINOPHILS # (AUTO) 0.1 K/uL (0.0-0.7); HEMOGLOBIN 14.3 g/dL (10.9-14.3); LYMPHOCYTES # (AUTO) 1.7 K/uL (20.0-40.0); LYMPHOCYTES % (AUTO) 28.8 % (20.5-51.5); MEAN CORPUSCULAR HEMOGLOBIN 30.9 uug (24.7-32.8); MEAN CORPUSCULAR HGB CONC 34 g/dL (32.3-35.6); MEAN CORPUSCULAR VOLUME 90.8 fL (75.5-95.3); MONOCYTES # (AUTO) 0.5 K/uL (2.0-10.0); MONOCYTES % (AUTO) 7.6 % (0.0-11.0); NEUTROPHILS # (AUTO) 3.7 K/uL (1.8-8.9); NEUTROPHILS % (AUTO) 61.2 % (38.5-71.5); PLATELET COUNT (AUTO) 198 K/uL (179-408); RED BLOOD CELL COUNT(AUTO) 4.62 MIL/uL (3.63-4.92)
[2017-10-25 06:49] LABS: CARBON DIOXIDE 27 mmol/L (21-32); CHLORIDE 108 mmol/L (98-107); CREATININE 0.5 mg/dL (0.6-1.3); GLUCOSE 115 mg/dL (74-106); MAGNESIUM 1.6 mg/dL (1.8-2.4); PHOSPHOROUS 3.3 mg/dL (2.5-4.9); POTASSIUM 3.6 mmol/L (3.5-5.1); UREA NITROGEN, BLOOD 9 mg/dL (7-18)
--- NOTE | 2017-10-25 07:00 | NUR ---
Patient rested well, coughing on & off non productively but no acute resp. distress. Incontinence care provided, turned from side to side every 2 hours. Kept comfortable. No acute resp distress. Joseph remains w/pink tinged output. Will continue to monitor.
--- NOTE | 2017-10-25 07:05 | NUR ---
RECEIVED REPORT FROM SOFTWARE PRODUCT MANAGER NURSE, PATIENT IN BED ASLEEP, NO EVIDENCE OF DISTRESS ON VISUAL ASSESSMENT. BED IN LOW POSITION, SIDE RAILS UP X2.
[2017-10-25] MEDS: IV NS 1000 ML 1,000 ML IV PRN (07:13)
[2017-10-25] MEDS: DRONABINOL 2.5 MG CAPSULE PO SCH (08:58)
[2017-10-25] MEDS: CHOLECALCIFEROL 1,000 UNIT TABLET PO SCH (08:58)
[2017-10-25] MEDS: HYDROCORTISONE 10 MG TABLET PO SCH (08:59)
[2017-10-25] MEDS: GABAPENTIN 400 MG CAPSULE PO SCH ×3 (08:59→17:34)
[2017-10-25] MEDS: ACIDOPHILUS/BULGARICUS CHEW TAB PO SCH ×2 (08:59→17:34)
[2017-10-25] MEDS: DULOXETINE 20 MG CAPSULE.DR PO SCH (09:00)
[2017-10-25] MEDS: OXYCODONE HCL 10 MG TAB.SR.12H PO SCH ×2 (09:00→21:17)
[2017-10-25] MEDS: NYSTATIN SUSPENSION 5 ML LIQUID UDC PO SCH ×4 (09:01→21:05)
[2017-10-25] MEDS: DILTIAZEM HCL CD 120 MG CAP.SR.24H PO SCH (09:01)
[2017-10-25] MEDS: POTASSIUM CHLORIDE 20 MEQ TAB.PRT.SR PO SCH (09:01)
[2017-10-25] MEDS: ONDANSETRON 4 MG/2 ML VIAL IV PRN (09:09)
[2017-10-25] MEDS ORDERED: POTASSIUM CHLORIDE 20 MEQ TAB.PRT.SR PO ONE (11:00)
[2017-10-25 11:06] VITALS: BP 107/66
[2017-10-25] MEDS: MAGNESIUM SULFATE/D5W 100 ML IV SCH ×2 (11:35→12:43)
[2017-10-25] MEDS: FLUCONAZOLE 200 MG/NS 100ML IV 100 MG in PREMIXED 1 EACH IV SCH (13:49)
[2017-10-25 15:41] VITALS: BP 105/59
--- NOTE | 2017-10-25 18:46 | NUR ---
PATIENT IS IN BED, HAS BEEN COMPLIANT WITH CARE THROUGHOUT THE DAY. DR FONTAINE SPOKE EXTENSIVELY WITH PATIENTS AND DISCUSSED THE POSSIBILITY OF DISCHARGING TOMORROW. PATIENT IS CURRENTLY IN BED, NO EVIDENCE OF DISTRESS AT THIS TIME, BED IN LOW POSITION, SIDE RAILS UP X2.
[2017-10-25 19:00] VITALS: BP 111/58
--- NOTE | 2017-10-25 19:30 | NUR ---
RECEIVED PATIENT IN BED AWAKE, VERBALLY RESPONSIVE NO SOB NO CHEST PAIN NOTED, CONT ON PAIN MANAGEMENT, WOMACK CATH PATENT DRAINING WITH YELLOW COLOR URINE IN MODERATE AMOUNT, CONT TO MONITOR.
[2017-10-25] MEDS: ATORVASTATIN 10 MG TABLET PO SCH (21:05)
[2017-10-25] MEDS: MAGNESIUM OXIDE 400 MG TABLET PO SCH (21:05)
[2017-10-26 05:33] VITALS: BP 106/67
[2017-10-26] MEDS: IV NS 1000 ML 1,000 ML IV PRN ×2 (06:08)
[2017-10-26] MEDS: LEVOTHYROXINE SODIUM 50 MCG TABLET PO SCH (06:49)
--- NOTE | 2017-10-26 06:57 | NUR ---
PATIENT SLEPT MOST OF THE NIGHT, NO SOB NO CHEST PAIN NOTED, MIDLINE R UPPER ARM INTACT, CONT PAIN MANAGEMENT, WOMACK CATH PATENT DRAINING WITH MODERATE YELLOW COLOR URINE. CONT TO MONITOR.
[2017-10-26 07:11] LABS: BASOPHILS % (AUTO) 0.4 % (0.0-2.0); EOSINOPHILS # (AUTO) 0.2 K/uL (0.0-0.7); HEMATOCRIT 40.7 % (31.2-41.9); HEMOGLOBIN 13.8 g/dL (10.9-14.3); LYMPHOCYTES # (AUTO) 1.8 K/uL (20.0-40.0); LYMPHOCYTES % (AUTO) 31.8 % (20.5-51.5); MEAN CORPUSCULAR HEMOGLOBIN 30.7 uug (24.7-32.8); MEAN CORPUSCULAR HGB CONC 34 g/dL (32.3-35.6); MEAN CORPUSCULAR VOLUME 90.5 fL (75.5-95.3); MONOCYTES # (AUTO) 0.5 K/uL (2.0-10.0); MONOCYTES % (AUTO) 7.9 % (0.0-11.0); NEUTROPHILS # (AUTO) 3.3 K/uL (1.8-8.9); NEUTROPHILS % (AUTO) 56.9 % (38.5-71.5); PLATELET COUNT (AUTO) 215 K/uL (179-408); WHITE BLOOD COUNT (AUTO) 5.8 K/uL (3.8-11.8)
[2017-10-26 07:24] LABS: ALANINE AMINOTRANSFERASE 26 U/L (14-59); ALKALINE PHOSPHATASE 53 U/L (50-136); ASPARTATE AMINOTRANSFERASE 29 U/L (15-37); BILIRUBIN,TOTAL 0.2 mg/dL (0.2-1.0); CARBON DIOXIDE 28 mmol/L (21-32); CHLORIDE 108 mmol/L (98-107); CREATININE 0.5 mg/dL (0.6-1.3); GLUCOSE 105 mg/dL (74-106); MAGNESIUM 1.7 mg/dL (1.8-2.4); POTASSIUM 3.8 mmol/L (3.5-5.1); TOTAL PROTEIN, SERUM 4.9 g/dL (6.4-8.2); UREA NITROGEN, BLOOD 7 mg/dL (7-18)
--- NOTE | 2017-10-26 07:30 | NUR ---
RECEIVED REPORT FROM STILL CLEANER TUBE NURSE, PATIENT IN BED ASLEEP, NO EVIDENCE OF DISTRESS NOTED, BED IN LOW POSITION, SIDE RAILS UP X2.
[2017-10-26] MEDS: DRONABINOL 2.5 MG CAPSULE PO SCH (09:06)
[2017-10-26] MEDS: NYSTATIN SUSPENSION 5 ML LIQUID UDC PO SCH ×4 (09:06→21:23)
[2017-10-26] MEDS: ACIDOPHILUS/BULGARICUS CHEW TAB PO SCH ×2 (09:06→17:55)
[2017-10-26] MEDS: DULOXETINE 20 MG CAPSULE.DR PO SCH (09:07)
[2017-10-26] MEDS: POTASSIUM CHLORIDE 20 MEQ TAB.PRT.SR PO SCH (09:07)
[2017-10-26] MEDS: GABAPENTIN 400 MG CAPSULE PO SCH ×3 (09:07→17:55)
[2017-10-26] MEDS: ONDANSETRON 4 MG/2 ML VIAL IV PRN (09:07)
[2017-10-26] MEDS: OXYCODONE HCL 10 MG TAB.SR.12H PO SCH ×2 (09:08→21:25)
[2017-10-26] MEDS: CHOLECALCIFEROL 1,000 UNIT TABLET PO SCH (09:08)
[2017-10-26] MEDS: DILTIAZEM HCL CD 120 MG CAP.SR.24H PO SCH (09:08)
[2017-10-26] MEDS: HYDROCORTISONE 10 MG TABLET PO SCH (09:17)
[2017-10-26] MEDS ORDERED: MAGNESIUM SULFATE/D5W 100 ML IV SCH (10:45)
[2017-10-26 11:29] LABS: *BILIRUBIN,URIN NEGATIVE (NEGATIVE); *BLOOD, URINE 3+ (NEGATIVE); *CLARITY,URINE CLOUDY (CLEAR); *COLOR,URINE YELLOW (YELLOW); *KETONES,URINE NEGATIVE (NEGATIVE); *PROTEIN,URINE 2+ (NEGATIVE); *UROBILINOGEN,URINE 0.2 E.U./dl (NORMAL); LEUKOCYTE ESTERASE ,URINE 1+ (NEGATIVE); NITRITE, URINE NEGATIVE (NEGATIVE); PH,URINE 5.5 (5.0-8.0); UGLUCOSE NEGATIVE (NEGATIVE)
[2017-10-26 11:38] VITALS: BP 104/56
[2017-10-26 11:54] LABS: RBC,URINE 20-50 /HPF (0-3)
[2017-10-26 11:55] LABS: BACTERIA,URINE NONE SEEN /HPF (NONE SEEN); SQUAMOUS EPITHELIAL CELL,UR FEW /HPF (NONE SEEN); WBC,URINE 50-80 /HPF (0-3); YEAST,URINE BUDDING YEAST /HPF (NONE SEEN)
[2017-10-26 11:57] LABS: CALCIUM OXALATE CRYSTALS,UR FEW /HPF (NONE SEEN)
[2017-10-26] MEDS ORDERED: MAGNESIUM SULFATE 1 GM in IV DEXTROSE 5% 50 ML IV ONE (12:00)
[2017-10-26] MEDS: FLUCONAZOLE 200 MG/NS 100ML IV 100 MG in PREMIXED 1 EACH IV SCH (13:00)
[2017-10-26 16:00] VITALS: BP 127/69
--- NOTE | 2017-10-26 18:17 | NUR ---
PATIENT HAS BEEN COOPERATIVE WITH CARE TODAY. PATIENT WAS MILDLY CONFUSED ON TWO OCCASIONS AND GOT UP TO SIT AT THE END OF THE BED. PATIENT FORGETS LIMITATIONS AND ATTEMPTS TO GET UP ON HER OWN. PATIENT WILL BE DISCHARGED TO [facility] TOMORROW. BED IN LOW POSITION, SIDE RAILS UP X2. BED ALARM ON.
[2017-10-26 19:00] VITALS: BP 116/73
--- NOTE | 2017-10-26 20:00 | NUR ---
PATIENT IN BED AWAKE WITH CONFUSION, NO EVIDENCE OF DISTRESS OR DISCOMFORT NOTED WILL CONTINUE TO MONITOR PATIENT
[2017-10-26] MEDS: ATORVASTATIN 10 MG TABLET PO SCH (21:22)
[2017-10-26] MEDS: MAGNESIUM OXIDE 400 MG TABLET PO SCH (21:23)
[2017-10-27 04:00] VITALS: BP 129/83
--- NOTE | 2017-10-27 08:00 | NUR ---
REPORT RECEIVED.PT REMAINS AWAKE,ALERT ,ORIENTED TO NAME ONLY.DENIES PAIN,DISCOMFORT.NO SOB NOTED.ABLE TO SWALLOW MEDICATION.NO S/S OF ASPIRATION.WILL CONTINUE TO MONITOR.
[2017-10-27 09:00] VITALS: BP 145/92
[2017-10-27] MEDS ORDERED: DEXAMETHASONE 4 MG TABLET PO SCH (09:00)
[2017-10-27] MEDS ORDERED: MICAFUNGIN SODIUM 100 MG in IV NORMAL SALINE 100 ML IV ONE (09:00)
[2017-10-27] MEDS: OXYCODONE HCL 10 MG TAB.SR.12H PO SCH (09:00)
[2017-10-27] MEDS: GABAPENTIN 400 MG CAPSULE PO SCH ×3 (09:35→17:56)
[2017-10-27] MEDS: DULOXETINE 20 MG CAPSULE.DR PO SCH (09:35)
[2017-10-27] MEDS: CHOLECALCIFEROL 1,000 UNIT TABLET PO SCH (09:35)
[2017-10-27] MEDS: ACIDOPHILUS/BULGARICUS CHEW TAB PO SCH ×2 (09:35→17:56)
[2017-10-27] MEDS: LEVOTHYROXINE SODIUM 50 MCG TABLET PO SCH (09:36)
[2017-10-27] MEDS: DILTIAZEM HCL CD 120 MG CAP.SR.24H PO SCH (09:37)
[2017-10-27] MEDS: DRONABINOL 2.5 MG CAPSULE PO SCH (09:37)
[2017-10-27] MEDS: NYSTATIN SUSPENSION 5 ML LIQUID UDC PO SCH ×3 (09:38→17:56)
[2017-10-27] MEDS: IV NS 1000 ML 1,000 ML IV PRN (09:46)
[2017-10-27] MEDS: HYDROCORTISONE 10 MG TABLET PO SCH (09:47)
[2017-10-27] MEDS: POTASSIUM CHLORIDE 20 MEQ TAB.PRT.SR PO SCH (09:47)
[2017-10-27 11:30] VITALS: BP 148/88
[2017-10-27] MEDS ORDERED: GABA-534 PO (15:47)
[2017-10-27] MEDS ORDERED: APIX2.5T PO (15:47)
[2017-10-27] MEDS ORDERED: DILT120C62 PO (15:47)
[2017-10-27] MEDS ORDERED: Magnesium Oxide PO (15:47)
[2017-10-27] MEDS ORDERED: MENT71OI TOP (15:47)
[2017-10-27] MEDS ORDERED: NYST5ORA PO (15:47)
[2017-10-27 16:10] VITALS: BP 138/75
--- NOTE | 2017-10-27 17:00 | NUR ---
REPORT GIVEN TO DENISHA HOLLAND CHARGE NURSE.
--- NOTE | 2017-10-27 18:41 | NUR ---
YINKAE IS HERE TO DIAL PAINTER PT.REPORT GIVEN.PT AT BEDSIDE.PT LEFT IN STABLE CONDITION.
[2017-10-29 09:16] LABS: A/G RATIO 1.2 (0.7-1.7); ALBUMIN 2.6 g/dL (2.9-4.4); ALPHA-1-GLOBULIN 0.2 g/dL (0.0-0.4); ALPHA-2-GLOBULIN 0.8 g/dL (0.4-1.0); BETA GLOBULIN 0.6 g/dL (0.7-1.3); GAMMA GLOBULIN 0.5 g/dL (0.4-1.8); GLOBULIN, TOTAL 2.1 g/dL (2.2-3.9); M-SPIKE 0.2 g/dL (Not Observed)
== END 2017-10-27 18:30 | DRG 871 ==
LOC: ER 11:07 → CCU 17:01 → TELE 10-23 18:45 → MED 10-24 13:32
PROVIDERS: ADMIT Nurse Practitioner Acute Care; ATTEND Nurse Practitioner Acute Care
PROC: 05H533Z Insertion of Infusion Device into Right Subclavian Vein, Percutaneous Approach (ICD-10-PCS; principal; 2017-10-22)
DX: A41.9 Sepsis, unspecified organism (principal); J69.0 Pneumonitis due to inhalation of food and vomit; E43 Unspecified severe protein-calorie malnutrition; I50.33 Acute on chronic diastolic (congestive) heart failure; G92 Toxic encephalopathy; I48.2 Chronic atrial fibrillation; C90.00 Multiple myeloma not having achieved remission; I48.92 Unspecified atrial flutter; I31.3 Pericardial effusion (noninflammatory); B37.0 Candidal stomatitis; B37.49 Other urogenital candidiasis; E11.8 Type 2 diabetes mellitus with unspecified complications; E83.42 Hypomagnesemia; E86.0 Dehydration; F03.90 Unspecified dementia, unspecified severity, without behavioral disturbance, psychotic disturbance, mood disturbance, and anxiety; G90.8 Other disorders of autonomic nervous system; E66.9 Obesity, unspecified; G89.4 Chronic pain syndrome; M48.50XD Collapsed vertebra, not elsewhere classified, site unspecified, subsequent encounter for fracture with routine healing; Z68.33 Body mass index [BMI] 33.0-33.9, adult; Z79.01 Long term (current) use of anticoagulants; Z86.711 Personal history of pulmonary embolism; Z86.718 Personal history of other venous thrombosis and embolism; Z79.891 Long term (current) use of opiate analgesic; K12.1 Other forms of stomatitis; M54.30 Sciatica, unspecified side; Z92.21 Personal history of antineoplastic chemotherapy; H74.90 Unspecified disorder of middle ear and mastoid, unspecified ear; F41.9 Anxiety disorder, unspecified; H35.30 Unspecified macular degeneration; K21.9 Gastro-esophageal reflux disease without esophagitis; K57.30 Diverticulosis of large intestine without perforation or abscess without bleeding; M19.90 Unspecified osteoarthritis, unspecified site; N20.0 Calculus of kidney; Z96.649 Presence of unspecified artificial hip joint; Z90.49 Acquired absence of other specified parts of digestive tract; Z87.01 Personal history of pneumonia (recurrent); Z79.899 Other long term (current) drug therapy; E87.6 Hypokalemia; Z91.81 History of falling; G47.33 Obstructive sleep apnea (adult) (pediatric); K86.89 Other specified diseases of pancreas; S72.90XD Unspecified fracture of unspecified femur, subsequent encounter for closed fracture with routine healing; X58.XXXD Exposure to other specified factors, subsequent encounter; I11.0 Hypertensive heart disease with heart failure
CPT/HCPCS: 36415; 36600; 70030-TC; 71010; 83605; 83690; 83735; 84100; 84155; 84165; 85025; 85730; 87040; 87086; 87400; 93005; 94640; 97116; 97530; A4663; J0456; J0743; J1450; J1940; J2185; J2248; J2405; J2543; J3475; J3490; J7030; J7050; J7060; J8540; Q0167

== ENCOUNTER 2017-11-16 18:46 | Emergency (ER) | payer MEDICARE, OTHER ==
[~2017-11-16] VITALS: Ht 162.6 cm; Wt 86.2 kg
[~2017-11-16 18:46] MED LIST changes: +AMIN30LI27 PO; +APIX2.5T PO; +ASCO-375 PO; +CALC-883 PO; +CHOL100043 PO; +CRAN425C6 PO; -CRAN450T9 PO; -DEXA4TAB PO; +DILT120C62 PO; -DULO20CA PO; +DULO40CA2 PO; +FURO20TA4 PO; +GABA-534 PO; -GABA-536 PO; +GUAI5SYR PO; +IPRA3AMP IH; -LACT1TAB12 PO; -LENA10CA PO; +MAG30ORA PO; +MAGN400O6 PO; -METO25TA6 PO; -MIDO2.5T PO; +Magnesium Oxide PO; +NA P133E RC; -NYST15CR TOP; +NYST5ORA PO; +ONDA4TAB8 PO; +POTA20TA83 PO; +ZINC220C8 PO
--- NOTE | 2017-11-16 19:01 | NUR ---
DR MATSON AT THE BEDSIDE FOR MSE.
[2017-11-16] MEDS ORDERED: ONDANSETRON 4 MG/2 ML VIAL IV ONE (19:15)
[2017-11-16] MEDS ORDERED: MORPHINE SULFATE 2 MG/1 ML DISP.SYRIN IV ONE (19:15)
[2017-11-16] MEDS ORDERED: VANCOMYCIN IV 1,000 MG in IV DEXTROSE 5% 250 ML IV ONE (19:15)
[2017-11-16] MEDS ORDERED: IV NORMAL SALINE 1000 ML BAG IV ONE (19:15)
[2017-11-16 19:29] LABS: BASOPHILS % (AUTO) 0.3 % (0.0-2.0); EOSINOPHILS % (AUTO) 0.3 % (0.0-7.0); HEMATOCRIT 45.6 % (31.2-41.9); HEMOGLOBIN 15.9 g/dL (10.9-14.3); LYMPHOCYTES # (AUTO) 2.3 K/uL (20.0-40.0); LYMPHOCYTES % (AUTO) 17.5 % (20.5-51.5); MEAN CORPUSCULAR HEMOGLOBIN 30.3 uug (24.7-32.8); MEAN CORPUSCULAR HGB CONC 35 g/dL (32.3-35.6); MEAN CORPUSCULAR VOLUME 86.9 fL (75.5-95.3); MONOCYTES # (AUTO) 1.1 K/uL (2.0-10.0); MONOCYTES % (AUTO) 8.1 % (0.0-11.0); NEUTROPHILS # (AUTO) 9.7 K/uL (1.8-8.9); NEUTROPHILS % (AUTO) 73.8 % (38.5-71.5); PLATELET COUNT (AUTO) 265 K/uL (179-408); RED BLOOD CELL COUNT(AUTO) 5.24 MIL/uL (3.63-4.92); WHITE BLOOD COUNT (AUTO) 13.2 K/uL (3.8-11.8)
[2017-11-16 19:32] LABS: CARBON DIOXIDE 29 mmol/L (21-32); CHLORIDE 98 mmol/L (98-107); CREATININE 0.7 mg/dL (0.6-1.3); GLUCOSE 99 mg/dL (74-106); POTASSIUM 3.3 mmol/L (3.5-5.1); UREA NITROGEN, BLOOD 13 mg/dL (7-18)
[2017-11-16] MEDS ORDERED: MORPHINE SULFATE 2 MG/1 ML DISP.SYRIN ONE (19:38)
[2017-11-16] MEDS ORDERED: ONDANSETRON 4 MG/2 ML VIAL ONE (19:38)
[2017-11-16] MEDS ORDERED: VANCOMYCIN IV 200 ML ONE (19:39)
[2017-11-16 19:44] LABS: ALANINE AMINOTRANSFERASE 15 U/L (14-59); ALKALINE PHOSPHATASE 98 U/L (50-136); ASPARTATE AMINOTRANSFERASE 18 U/L (15-37); BILIRUBIN,DIRECT 0.3 mg/dL (0.0-0.2); BILIRUBIN,TOTAL 0.8 mg/dL (0.2-1.0); TOTAL PROTEIN, SERUM 6.1 g/dL (6.4-8.2)
--- NOTE | 2017-11-16 19:57 | NUR ---
PATIENT OUT OF UNIT FOR CT SCAN VIA GURNY
[2017-11-16] MEDS ORDERED: IOHEXOL 300MG/ML 100 ML INFUS..BTL IV ONE (20:19)
--- NOTE | 2017-11-16 20:22 | NUR ---
PATIENT BACK FROM CT SCAN WITH NO DISTRESS NOTED
[2017-11-16] MEDS ORDERED: HYDR5TAB2 PO (21:27)
[2017-11-16] MEDS ORDERED: AMOX1TAB49 PO (21:27)
[2017-11-16] MEDS ORDERED: GUAI118S13 PO (21:27)
[2017-11-16] MEDS ORDERED: SUCR1ORA PO (21:27)
--- NOTE | 2017-11-16 21:36 | NUR ---
GAVE SBAR REPORT TO HARISH DUARTE FROM [facility] [phone]
--- NOTE | 2017-11-16 21:40 | NUR ---
CALLED [facility] FOR TRANSPORTATION BACK TO [facility]. ETA 1HR
--- NOTE | 2017-11-16 21:42 | NUR ---
OUTLINED REDNESS AROUND FACE AND NECK ORDERED BY DR MATSON
--- NOTE | 2017-11-16 22:17 | NUR ---
IV removed. Catheter intact and site benign. Pressure and 4x4 gauze applied to site. No bleeding noted.
--- NOTE | 2017-11-16 22:26 | NUR ---
Patient discharged to home in stable conditon WITH [facility] TAKING PATIENT BACK TO [facility]. Written and verbal after care instructions given. Patient/FAMILY verbalizes understanding of instructions.
[2017-11-16 22:27] VITALS: BP 120/70
== END 2017-11-16 22:28 | disposition home or self-care (01) ==
LOC: ER 18:48
DX: K11.20 Sialoadenitis, unspecified (principal); I11.0 Hypertensive heart disease with heart failure; I50.9 Heart failure, unspecified; L03.211 Cellulitis of face; I48.91 Unspecified atrial fibrillation; K21.9 Gastro-esophageal reflux disease without esophagitis; F03.90 Unspecified dementia, unspecified severity, without behavioral disturbance, psychotic disturbance, mood disturbance, and anxiety; Z79.01 Long term (current) use of anticoagulants; Z90.49 Acquired absence of other specified parts of digestive tract; Z88.8 Allergy status to other drugs, medicaments and biological substances
CPT/HCPCS: 36415; 70491; 71045; 80048; 80076; 83605; 83880; 84484; 85025; 85730; 87040 ×2; 93005; 96365; 96366; 96375; 99285; A4663; J2270; J2405; J3370; J7030; Q9967; 70030-TC